=== PATIENT | female | born 1950 | race Caucasian/White ===

== ENCOUNTER 2024-12-31 12:33 | Outpatient (AMB) | payer MEDICARE, MEDICAID, SELFPAY ==
--- NOTE | 2024-12-31 12:35 | A.OFFVIS_ITS ---
Intake Visit Reasons: 2 month fu Allergies No Known Allergies Allergy (Verified 12/18/24 16:58) HPI Comments Details: 74 yr old woman with chr. migraine s/p Botox inj for Chr. Migraine on 10/30/24. She has had an excellent response to the Botox. Occasional neck pain continues, but is also improved with botox. Sleeping okay for the most part. Chronic low back pain followed at [facility], getting epidural inj about every 4 months. Lives near daughter in [facility]. Walking > 2 miles a day. Has had a good response to Botox in the past. She is being treated for chronic migraines with more than 15-20 days of migraine in a month. She has responded well to Botox injections into the scalp and neck muscles. Cannot take NSAIDS for kidney issues. 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 Change in appetitedenies.? Fatiguedenies.? Feverdenies.? Weight gainadmits.? Weight lossdenies. ???Sleep:? Difficulty getting to sleepdenies.? Difficulty maintaining sleepdenies?.? Daytime sleepinessdenies. ???Respiratory:? Shortness of breathdenies.? Chest paindenies. ???Cardiovascular:? Chest pain at restdenies.? Chest pain with exertiondenies.? Dizzinessdenies.? Fluid accumulation in the legsdenies.? Irregular heartbeatdenies.? Palpitations denies. ???Gastrointestinal:? Constipationdenies.? Diarrheadenies.? Difficulty swallowingdenies.? Heartburn denies.? Nauseadenies. ???Genitourinary:? Frequent urinationdenies.? Urgencydenies.? Incontinencedenies. ???Musculoskeletal:? Neck paindenies.? Back paindenies.? Joint stiffnessdenies.? Sciaticadenies. ???Neurologic:? Difficulty swallowingdenies.? Balance difficultydenies.? Coordinationnormal.? Difficulty speakingdenies.? Dizzinessdenies.? Faintingdenies.? Gait abnormality denies.? Headachethat is chronic.? Loss of strengthdenies.? Loss of use of ext remitydenies.? Low back paindenies.? Memory lossdenies.? Seizuresdenies.? Tics denies.? Tingling/Numbnessdenies.? Transient loss of visiondenies.? Tremordenies . ???Psychiatric:? Anxietyadmits.? Auditory/visual hallucinationsdenies.? Delusionsdenies.? Depressed moodadmits.? Stressorsdenies.? Suicidal thoughtsdenies. Physical Exam Neuro Other: Neurological: Abnormal neurological findings:??none.?Mental Status:??alert and oriented X 3,?Normal attention, orientation, memory and affect.?Cranial Nerves:??Pupils are equal, round and reactive to light. Fundoscopy shows normal disc bilaterally. External occular muscles are intact. Visual patterson are full, no ptosis. Face is symmetrical, no facial weakness or droop. Facial sensations are normal. Tongue protrudes in midline. Palate elevates symmetrically. Shoulder shrugging is normal..?Motor Examination:??Normal muscle tone, bulk and strength,?No atrophy or fasciculations,?No drift of the extended upper extremities,?Deep tendon reflexes are 2+?,?Plantars are flexor?.?Straight Leg Raising:??90 degrees.?Sensory Exam:??Normal light touch, temperature, pinprick, vibration and joint-position sensations?,?Rhomberg sign is absent.?Coordination:??no ataxia,?no titubation,?zvamst-vp-zcje, xfov-rqgu-hzja test and rapid alternating movements were normal.?Gait Exam:??Within normal limits.?Cerebellar Signs:??Jymjxy-tq-vekj and vruw-ve-ulju is normal,?no dysdiadochokinesia?.?Extrapyramidal System:??No tremor, rigidity with normal facial expressions,?No bradykinesia, no bradyphrenia. Normal arm swing and posture. No propulsion or retropulsion.?Speech:??Normal,?no dysphasia or dysarthria..? General Examination: GENERAL APPEARANCE:??normal,?in no acute distress.?HEART:??S1, S2 normal,?no murmurs.?LUNGS:??clear anteriorly and posteriorly.?MUSCULOSKELETAL:??normal.?EXTREMITIES:??no edema.?PSYCH:??alert, oriented,?cognitive function intact,?cooperative with exam.? Mini Mental Status Exam: Level of Consciousness:??Alert.?Orientation:??Knows correct year, month, date, day and season,?Knows correct city, county and state. Knows correct location and floor.?Registration:??Able to register 3 objects.?Attention:??Serial 7's performed accurately.?Recall:??Able to recall 3 out of 3 object s.?Language:??Normal spontaneous speech, fluency, repetition,naming, comprehension, reading and writing.?Total Score:??30/30.? 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 Will f/u with VR and will see me PRN when she needs Botox Coding Level of Care Code Est Pt Level 4 (34601) Diagnoses Chronic tension type headache G44.229 Low back pain due to displacement of intervertebral disc M51.26 Migraines G43.909
--- OUTSIDE RECORDS SUMMARY | 2024-12-31 13:42 | XMS_ITS | Encounter Summary ---
Author Organization [facility] Address [address] [place] [address] Phone Care Team Providers Care Trans Router Name Role Phone Arturo Iverson MD Primary Care Provider [phone] Reason for Visit * Reason Comments Med Refill Encounter Details Date Type Department Care Team (Late Contact Info) Description 06/29/2022 Refill [facility] [address] [facility] [address] [place] [phone] Darshan Tyson MD Social History Tobacco Use Types Packs/Day Years Used Date Smoking Tobacco: Former Alcohol Use Standard Drinks/Week Comments No 0 (1 standard drink = 0.6 oz pur e alcohol) Comments Unknown Sex and Gender Information Value Date Recorded Sex Assigned at Not on file Legal Sex Female 4:35 PM EST Gender Identity Not on file Sexual Orientation Not on file documented as of this encounter Plan of Treatment Upcoming Encounters Date Type Department Care Team (Late Contact Info) Description 07/11/2025 11:00 AM EST Office Visit [facility] [address] [place] [phone] Ty Lyon MD [address] [place] [address] [facility] [place] [phone] documented as of this encounter Visit Diagnoses Not on filedocumented in this encounter Care Teams Trans Router Relationship Specialty Start Date End Date Arturo Iverson MD [address] [place] [address], [address] [place], [place] [id number] PCP - General 04/23/19 documented as of this encounter
== END 2024-12-31 12:58 | disposition home or self-care (01) ==
LOC: HO.HSM 12:34
PROVIDERS: PCP Pediatrics; Referring Provider Pediatrics; Visit Provider Psychiatry & Neurology Neurology
DX: G44.229 Chronic tension-type headache, not intractable (principal); M51.26 Other intervertebral disc displacement, lumbar region; G43.909 Migraine, unspecified, not intractable, without status migrainosus
CPT/HCPCS: 99214

== ENCOUNTER → 2024-12-31 12:33 | Outpatient (BNVA) | payer MEDICARE, MEDICAID, SELFPAY | PROVIDERS: PCP Pediatrics; Referring Provider Pediatrics; Visit Provider Psychiatry & Neurology Neurology | DX: G44.229 Chronic tension-type headache, not intractable (principal); G43.909 Migraine, unspecified, not intractable, without status migrainosus; M51.26 Other intervertebral disc displacement, lumbar region | CPT/HCPCS: 99212 ==

== ENCOUNTER 2025-03-18 12:44 | Outpatient (AMB) | payer MEDICARE, MEDICAID, SELFPAY ==
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
[2025-03-18 13:05] VITALS: BP 114/68; PULSE 79; RESP 16; O2SAT 97; BMI 20.5
--- OUTSIDE RECORDS SUMMARY | 2025-03-18 13:50 | XMS_ITS | Encounter Summary ---
Author Organization [facility] Address [address] [facility] [address] [place] [address] Phone Care Team Providers Care Controls Operator Molded Goods Name Role Phone Arturo Iverson MD Unavailable [phone] Arturo Iverson MD Primary Care Provider [phone] Reason for Referral * Physical Therapy (Routine) - Closed Specialty Diagnoses / Procedures Referred By Rohit alexis Referred To Contact Physical Therapy Diagnoses Encounter for rehabilitation Mark Anthony Rondon MD Phone: tel: fax: [email or web address] [facility] [address] [place] [address] Phone: tel: Referral ID Status Reason Start Date Expiration Date Visits Re quested Visits Authorized [id number] Closed 01/25/2023 01/25/2024 99 99 Encounter Details Date Type Department Care Team (Latest Contact Info) Description 01/25/2023 Transcribe Orders [facility] [address] [place] [address] Mark Anthony Rondon MD [address] [place] [phone] [email or web address] Encounter for rehabilitation (Primary Dx) Social History Tobacco Use Types Packs/Day Years Used Date Smoking Tobacco: Some Days Cigarettes 0.3 60.7 Started: 1964 Smokeless Tobacco: Never Comments: LIGHT SMOKER wear ing patch-forgets often. The patch helps. Alcohol Use Standard Drinks/Week Comments Yes 7 (1 standard drink = 0.6 oz pur e alcohol) Education Answer Date Recorded Are you interested in more education? Not on dakota e 10/14/2022 Are you concerned about learning? Not on file 10/14/2022 No 10/14/2022 No 10/14/2022 Digital Access Answer Date Recorded No 11/14/2022 No 11/14/2022 Reliable internet access at home? Not on file 11/14/2022 Device with a working camera? Not on file Comments No Sex and Gender Information Value Date Recorded Sex Assigned at Female 06/26/2017 9:38 AM EST Legal Sex Female 10:00 PM EDT Gender Identity Female 07/16/2017 1:36 PM EST Sexual Orientation Straight 09/25/2017 6: 02 PM EDT documented as of this encounter Plan of Treatment Upcoming Encounters Date Type Department Care Team (Late st Contact Info) Description 06/02/2025 1:00 PM EST Office Visit [facility] Medicine [address] [place] [address] [place] [address] Arturo Iverson MD [address] [place] [address], [address] [place] [address] 07/04/2025 1:45 PM EST Office Visit [facility] [address] [place] [address] Unknown, Unknown, Nola Hughes, ADALI [address] [place] [address] 07/10/2025 2:15 PM EST Office Visit [facility] [address] [place] [address] Angela Salcedo MD [address] [place] [address] Orthopedics & Sports Medicine, [facility] [place] [address] 12/08/2025 1:00 PM EDT Office Visit [facility] [address] 3rd Floor, [address] [place] [address] Enrique Garcia DO [address] [facility] [address] [place] [phone] [email or web address] Scheduled Referrals Name Type Priority Associated Diagnoses Orde r Schedule Ambulatory referral to [facility] Physical Therapy Outpatient Referral Routine Encounter for rehabilitation Ordered: 01/25/2023 documented as of this encounter Visit Diagnoses Diagnosis Encounter for rehabilitation- Primary documented in this encounter Additional Health Concerns Assessment Noted Time PHQ-2 Depression Total Score: 0 05/26/20 22 1:31 PM EST documented as of this encounter Care Teams Controls Operator Molded Goods Relationship Specialty Start Date End Date Arturo Iverson MD [address] [facility], [address] [place] [address] PCP - General Internal Medicine 12/18/20 Arturo Iverson MD [address] [place] [address], [address] [place] [address] Insurance Assigned Provider 09/23/23 documented as of this encounter Additional Source Comments The information contained in this document represents components of the legal health record. It is not the complete legal health record.[facility]
--- OUTSIDE RECORDS SUMMARY | 2025-03-18 13:50 | XMS_ITS | Encounter Summary ---
Author Organization [facility] Address [address] [place] [address] Phone Care Team Providers Care Right Of Way Manager Name Role Phone Arturo Iverson MD Unavailable [phone] Arturo Iverson MD Primary Care Provider [phone] Encounter Details Date Type Department Care Team (Late st Contact Info) Description 08/02/2022 Procedure [facility] [place] [address] Social History Tobacco Use Types Packs/Day Years Used Date Smoking Tobacco: Some Days Cigarettes 0.3 60.7 Started: 1964 Smokeless Tobacco: Never Comments: LIGHT SMOKER wear ing patch-forgets often. The patch helps. Alcohol Use Standard Drinks/Week Comments Yes 7 (1 standard drink = 0.6 oz pur e alcohol) Comments No Sex and Gender Information Value [...] Description 06/02/2025 1:00 PM EST Office Visit [facility] [address] [place] [address] Arturo Iverson MD [address] [facility], [address] [place] [address] 07/04/2025 1:45 PM EST Office Visit [facility] [address] [place] [address] Unknown, Unknown, Nola [place], ADALI [address] [place] [address] 07/10/2025 2:15 PM EST Office Visit [facility] [address] [place] [address] Angela Salcedo MD [address] [place] [address] Orthopedics & Sports Medicine, [facility] [place] [address] 12/08/2025 1:00 PM EDT Office Visit [facility] [address] [place] [address] 3rd Floor, [address] [place] [address] Enrique Garcia DO [address] [facility] [address] [place] [id number] [email or web address] documented as of this encounter Visit Diagnoses Not on filedocumented in this encounter Additional Health Concerns Assessment Noted Time PHQ-2 Depression Total Score: 0 05/26/20 22 1:31 PM EST documented as of this encounter Care Teams Right Of Way Manager Relationship Specialty Start Date End Date Arturo Iverson MD [address] [place] [address], [address] [place] [address] PCP - General Internal Medicine 12/18/20 Arturo Iverson MD [address] [place] [address], [address] [place] [address] [email or web address] Insurance Assigned Provider 09/23/23 documented as of this encounter Additional Source Comments The information contained in this document represents components of the legal health record. It is not the complete legal health record.[facility]
--- OUTSIDE RECORDS SUMMARY | 2025-03-18 13:50 | XMS_ITS | Encounter Summary ---
Author Organization [facility] Address [address] [place] [address] Phone Care Team Providers Care Cranberry Sorter Name Role Phone Arturo Iverson MD Primary Care Provider [phone] Arturo Iverson MD Unavailable [phone] Arturo Iverson MD Primary Care Provider [phone] Encounter Details Date Type Department Care Team (Late st Contact Info) Description 01/11/2018 Ancillary Orders [facility] Medicine [address] [place] [address] Arturo Iverson MD [address] [facility], [address] [place] [address] [email or web address] Breast screening Social History Tobacco Use Types Packs/Day Years Used Date Smoking Tobacco: Every Day Cigarettes Smokeless Tobacco: Never Comments: LIGHT SMOKER wear ing patch Alcohol Use Standard Drinks/Week Comments Yes 7 [...] Description 06/02/2025 1:00 PM EST Office Visit [address] [place] [address] Arturo Iverson MD [address] [place] [address], [address] [place] [address] 07/04/2025 1:45 PM EST Office Visit [facility] [address] [place] [address] Unknown, Unknown, Nola Hughes, ADALI [address] [place] [address] 07/10/2025 2:15 PM EST Office Visit [facility] Orthopedics & Sports Medicine [address] [place] [address] Angela Salcedo MD [address] [place] [address] Orthopedics & Sports Medicine, [facility] [place] [address] 12/08/2025 1:00 PM EDT Office Visit [facility] [address] [place] [address] 3rd Floor, [address] [place] [address] Enrique Garcia DO [address] [place] [address] [place] [address] documented as of this encounter Results * BI MAMMOGRAM SCREENING WITH TOMOSYNTHESIS WITH CAD (BILATERAL) (01/29/2018 11:00 AM EDT) Anatomical Region Laterality Modality Breast Left, Breast Right, Breast Bilateral Bila teral Mammography 01/29/2018 12:3 4 PM EDT Impressions 01/29/2018 12:41 PM EDT No mammographic signs of malignancy. Annual screening is recommended. BI-RADS CATEGORY: 2 - Benign finding. DENSITY: There are scattered fibroglandular densities. POS - CDHMAMA Narrative 01/29/2018 12:41 PM EDT Bilateral mammography is performed in conjunction with computed aided detection. 3-D tomography along with 2-D C view imaging was also performed. Comparison made to previous dated as far back as 12/31/2012 and as recent as 06/23/2016. No suspicious masses, areas of architectural distortion or suspicious microcalcifications. A well-circumscribed 1 cm mass in the posterior outer right breast is stable. Procedure Note Mikie Cochran MD - 01/29/2018 Bilateral mammography is performed in conjunction with computed aideddetection. 3-D tomography along with 2-D C view imaging was alsoperformed. Comparison made to previous dated as far back as 12/31/2012 andas recent as 06/23/2016. No suspicious masses, areas of architectural distortion or suspiciousmicrocalcifications. A well-circumscribed 1 cm mass in the posteriorouter right breast is stable. IMPRESSION: No mammographic signs of malignancy. Annual screening is recommended. BI-RADS CATEGORY: 2 - Benign finding. DENSITY: There are scattered fibroglandular densities. POS - CDHMAMA Arturo Iverson MD IMG MG EXAMS Final Result documented in this encounter Visit Diagnoses Diagnosis Breast screening Breast screening, unspecified Breast screening Breast screening, unspecified documented in this encounter Additional Health Concerns Infection Onset Date Last Indicated Resolved Time CoV-Risk 08/27/2021 09/01/2021 09/12/2021 1:21 AM EDT documented as of this encounter Care Teams Cranberry Sorter Relationship Specialty Start Date End Date Arturo Iverson MD 22 [facility], [address] [place] [address] PCP - General 04/14/17 12/17/20 Arturo Iverson MD [address] [place] [address], [address] [place] [address] [email or web address] PCP - General Internal Medicine 12/18/20 Arturo Iverson MD [address] [place] [address], [address] [place] [address] [email or web address] Insurance Assigned Provider 09/23/23 documented as of this encounter Additional Source Comments The information contained in this document represents components of the legal health record. It is not the complete legal health record.[facility]
--- OUTSIDE RECORDS SUMMARY | 2025-03-18 13:50 | XMS_ITS | Encounter Summary ---
Author Organization [facility] Address [address] [facility] [address] [place] [address] Phone Care Team Providers Care Mechanical Maintenance Worker Name Role Phone Arturo Iverson MD Primary Care Provider [phone] Arturo Iverson MD Unavailable [phone] Artruo Iverson MD Primary Care Provider [phone] Reason for Referral * Physical Therapy (Routine) - Closed Specialty Diagnoses / Procedures Referred By Rohit alexis Referred To Contact Physical Therapy Diagnoses Encounter for rehabilitation Mark Anthony Rondon MD Phone: tel: fax: [email or web address] [address] [place] [address] Phone: tel: Referral ID Status Reason Start Date Expiration Date Visits Re quested Visits Authorized [id number] Closed 11/05/2020 06/18/2021 88 88 Encounter Details Date Type Department Care Team (Latest Contact Info) Description 11/05/2020 Transcribe Orders [facility] [address] [place] [address] Mark Anthony Rondon MD [address] [place] [address] [email or web address] ([place]) Encounter for rehabilitation (Primary Dx) Social History Tobacco Use Types Packs/Day Years Used Date Smoking Tobacco: Every Day Cigarettes 0.3 60.7 Started: 1964 Smokeless Tobacco: Never Comments: LIGHT SMOKER wear ing patch-forgets often. Alcohol Use Standard Drinks/Week Comments Yes 7 [...] Description 06/02/2025 1:00 PM EST Office Visit [facility] Family Medicine [address] [place] [address] [place] [address] Arturo Iverson MD [address] [place] [address], [address] [place] [address] [email or web address] 07/04/2025 1:45 PM EST Office Visit [facility] [address] [place] [address] Unknown, Unknown, Nola Hughes, ADALI [address] [place] [address] 07/10/2025 2:15 PM EST Office Visit [facility] Orthopedics & Sports Medicine [address] [place] [address] [phone] Angela Salcedo MD [address] [place] [address] [facility] [place], [place] [phone] 12/08/2025 1:00 PM EDT Office Visit [facility] [address] [place] [address] 3rd Floor, [address] [place] [address] Enrique Garcia DO [address] [facility] [address] [place] [address] [email or web address] documented as of this encounter Procedures Procedure Name Priority Date/Time Associated Diagnosis Comments AMB REFERRAL TO [facility] PHYSICAL THERAPY Routine 12/08/2020 9:14 AM EDT Encounter for rehabilitation documented in this encounter Results * Ambulatory referral to [facility] Physical Therapy (12/08/2020 9:14 AM EDT) Other us Mark Anthony Rondon MD AMB [facility] REFERRALS Final Result documented in this encounter Visit Diagnoses Diagnosis Encounter for rehabilitation- Primary documented in this encounter Additional Health Concerns Infection Onset Date Last Indicated Resolved Time CoV-Risk 08/27/2021 09/01/2021 09/12/2021 1:21 AM EDT Assessment Noted Time PHQ-2 Depression Total Score: 0 02/06/20 20 3:42 PM EDT documented as of this encounter Care Teams Mechanical Maintenance Worker Relationship Specialty Start Date End Date Arturo Iverson MD [address] [place] [address], [address] [place] [address] [email or web address] PCP - General 04/14/17 12/17/20 Arturo Iverson MD [address] [place] [address], [address] [place] [address] PCP - General Internal Medicine 12/18/20 Arturo Iverson MD [address] [place] [address], [address] [place] [address] [email or web address] Insurance Assigned Provider 09/23/23 documented as of this encounter Additional Source Comments The information contained in this document represents components of the legal health record. It is not the complete legal health record.[facility]
--- OUTSIDE RECORDS SUMMARY | 2025-03-18 13:50 | XMS_ITS | Encounter Summary ---
Author Organization [facility] Address [address] [place] [address] Phone Care Team Providers Care Laborer Cheesemaking Name Role Phone Arturo Iverson MD Primary Care Provider [phone] Arturo Iverson MD Unavailable [phone] Arturo Iverson MD Primary Care Provider [phone] Encounter Details Date Type Department Care Team (Late st Contact Info) Description 12/07/2020 Procedure Pass [address] [place] [address] Social History Tobacco Use Types Packs/Day Years [...] PM EDT documented as of this encounter Last Filed Vital Signs Vital Sign Reading Time Taken Comments Blood Pressure - - Pulse - - Temperature - - Respiratory Rate - - Oxygen Saturation - - Inhaled Oxygen Concentration - - Weight 63.5 kg (140 lb) 12/10/2020 6:14 PM EDT Height 160 cm (5' 3 ) 12/10/2020 6:14 PM EDT STEVEN F Body Mass Index 24.8 12/10/2020 6:14 PM EDT documented in this encounter Plan of Treatment Upcoming Encounters Date Type Department Care Team (Late st Contact Info) Description 06/02/2025 1:00 PM EST Office Visit [facility] Medicine [address] [place] [address] [place] [address] Arturo Iverson MD [address] [place] [address], [address] [place] [address] 07/04/2025 1:45 PM EST Office Visit [facility] Gastroenterology Clinic [address] [place] [address] Unknown, Unknown, Nola Hughes, ADALI [address] [place] [address] 07/10/2025 2:15 PM EST Office Visit [facility] Orthopedics & Sports Medicine [address] [place] [address] Angela Salcedo MD [address] [place] [address] Orthopedics & Sports Medicine, [facility] [place] [address] 12/08/2025 1:00 PM EDT Office Visit [facility] [address] [place] [address] Dr 3rd Floor, [address] [place] [address] Enrique Garcia DO [address] [place] [address] [address] [place] [address] documented as of this encounter Visit Diagnoses Not on filedocumented in this encounter Additional Health Concerns Infection Onset Date Last Indicated Resolved Time CoV-Risk 08/27/2021 09/01/2021 09/12/2021 1:21 AM EDT Assessment Noted Time PHQ-2 Depression Total Score: 0 02/06/20 3:42 PM EDT documented as of this encounter Care Teams Laborer Cheesemaking Relationship Specialty Start Date End Date Arturo Iverson MD [address] [place] [address], [address] [place] [address] PCP - General 04/14/17 12/17/20 Arturo Iverson MD [address] [place] [address], [address] [place] [address] PCP - General Internal Medicine 12/18/20 Arturo Iverson MD [address] [place] [address], [address] [place] [address] Insurance Assigned Provider 09/23/23 documented as of this encounter Additional Source Comments The information contained in this document represents components of the legal health record. It is not the complete legal health record.[facility]
--- OUTSIDE RECORDS SUMMARY | 2025-03-18 13:50 | XMS_ITS | Encounter Summary ---
Author Organization [facility] Address [address] [place] [address] Phone Care Team Providers Care Wrapper Cashier Name Role Phone Arturo Iverson MD Primary Care Provider [phone] Arturo Iverson MD Unavailable [phone] Arturo Iverson MD Primary Care Provider Reason for Referral * MRI/CAT Scan - Closed Specialty Diagnoses / Procedures Referred By Rohit alexis Referred To Contact Radiology Diagnoses Other intervertebral disc degeneration, lumbar region Spondylolisthesis of lumbar region Radiculopathy, lumbar region Procedures MRI Lumbar Spine Marcelo Bah PA [address] [place] [address] [place] [address] Phone: tel: fax: [email or web address] Referral ID Status Reason Start Date Expiration Date Visits Re quested Visits Authorized [id number] Closed 12/07/2020 12/07/2021 1 1 Encounter Details Date Type Department Care Team (Latest Contact Info) Description 12/07/2020 Transcribe Orders [facility] Department [address] [place] [address] Marcelo Bah PA [address] [place] [address] .MTPV Other intervertebral disc degeneration, lumbar region (Primary Dx); Spondylolisthesis of lumbar region; Radiculopathy, lumbar region Social History Tobacco Use Types Packs/Day Years [...] Description 06/02/2025 1:00 PM EST Office Visit [facility] Family Medicine [address] [place] [address] Arturo Iverson MD [address] [place] [address], [address] [place] [address] [email or web address] 07/04/2025 1:45 PM EST Office Visit [facility] Gastroenterology Clinic [address] [place] [address] Unknown, Unknown, Nola Hughes, DATA RECOVERY PLANNER [address] [place] [address] 07/10/2025 2:15 PM EST Office Visit [facility] Orthopedics & Sports Medicine [address] [place] [address] [phone] Angela Salcedo MD [address] [place] [address] Orthopedics & Sports Medicine, [place] [address] 12/08/2025 1:00 PM EDT Office Visit [facility] [address] [facility] 3rd Floor, [address] [place] [address] Enrique Garcia DO [address] [facility] [address] [place] [address] documented as of this encounter Results * MRI LUMBAR SPINE (BONE) WITHOUT CONTRAST (12/19/2020 11:21 AM EDT) Anatomical Region Laterality Modality L-spine Magnetic Resonan ce 12/19/2020 4:10 PM EDT Impressions 12/20/2020 12:14 PM EDT Similar appearance of multilevel degenerative changes of the lumbar spine, more pronounced at L4-L5 where there is severe spinal canal stenosis and moderate right neural foraminal stenosis. Narrative 12/20/2020 12:14 PM EDT TECHNIQUE: MRI LUMBAR SPINE (BONE) WITHOUT CONTRAST COMPARISON: MRI LUMBAR SPINE (NEURO) WITHOUT CONTRAST FINDINGS: Transitional lumbosacral anatomy, sacralization of L5 with a right-sided pseudoarthrosis. ALIGNMENT: Grade 1 anterolisthesis at L4-L5, unchanged. MARROW: No compression fracture or marrow replacing lesion. CONUS: Normal appearance . PARASPINAL SOFT TISSUES: Numerous small cysts again seen in the bilateral kidneys, unchanged. FINDINGS BY LEVEL (unless otherwise specified, findings are unchanged): L1-2: Concentric disc bulge. Mild spinal canal stenosis. No significant neural foraminal stenosis. L2-3: Bilateral facet arthropathy. Concentric disc bulge. Mild spinal canal stenosis. Mild left neural foraminal stenosis. L3-4: Bilateral facet arthropathy with ligamentum flavum thickening. Concentric disc bulge. Moderate spinal canal stenosis. Mild bilateral neural foraminal stenosis. L4-5: Bilateral facet arthropathy with ligamentum flavum thickening. Concentric disc bulge. Severe spinal canal stenosis. Moderate right and mild left neural foraminal stenosis. L5-S1: No significant posterior disc abnormality. No spinal canal or neural foraminal stenosis. Procedure Note Declan Gutierrez MD - 12/20/2020 TECHNIQUE: MRI LUMBAR SPINE (BONE) WITHOUT CONTRAST COMPARISON: MRI LUMBAR SPINE (NEURO) WITHOUT CONTRAST FINDINGS: Transitional lumbosacral anatomy, sacralization of L5 with a right-sidedpseudoarthrosis. ALIGNMENT: Grade 1 anterolisthesis at L4-L5, unchanged. MARROW: No compression fracture or marrow replacing lesion. CONUS: Normal appearance . PARASPINAL SOFT TISSUES: Numerous small cysts again seen in the bilateralkidneys, unchanged. FINDINGS BY LEVEL (unless otherwise specified, findings are unchanged): L1-2: Concentric disc bulge. Mild spinal canal stenosis. No significantneural foraminal stenosis. L2-3: Bilateral facet arthropathy. Concentric disc bulge. Mild spinalcanal stenosis. Mild left neural foraminal stenosis. L3-4: Bilateral facet arthropathy with ligamentum flavum thickening.Concentric disc bulge. Moderate spinal canal stenosis. Mild bilateralneural foraminal stenosis. L4-5: Bilateral facet arthropathy with ligamentum flavum thickening.Concentric disc bulge. Severe spinal canal stenosis. Moderate right andmild left neural foraminal stenosis. L5-S1: No significant posterior disc abnormality. No spinal canal orneural foraminal stenosis. IMPRESSION: Similar appearance of multilevel degenerative changes of the lumbar spine,more pronounced at L4-L5 where there is severe spinal canal stenosis andmoderate right neural foraminal stenosis. Marcelo KAY IMG MR XSPECIALTY Final Res ult documented in this encounter Visit Diagnoses Diagnosis Other intervertebral disc degeneration, lumbar region- Primary Spondylolisthesis of lumbar region Radiculopathy, lumbar region Thoracic or lumbosacral neuritis or radiculitis, unspecified Other intervertebral disc degeneration, lumbar region Spondylolisthesis of lumbar region Radiculopathy, lumbar region Thoracic or lumbosacral neuritis or radiculitis, unspecified documented in this encounter Additional Health Concerns Infection Onset Date Last Indicated Resolved Time CoV-Risk 08/27/2021 09/01/2021 09/12/2021 1:21 AM EDT Assessment Noted Time PHQ-2 Depression Total Score: 0 02/06/20 3:42 PM EDT documented as of this encounter Care Teams Wrapper Cashier Relationship Specialty Start Date End Date Arturo Iverson MD [address] [facility], [address] [place] [address] [email or web address] PCP - General 04/14/17 12/17/20 Arturo Iverson MD [address] [facility], [address] [place] [address] [email or web address] PCP - General Internal Medicine 12/18/20 Arturo Iverson MD [address] [facility], [address] [place] [address] [email or web address] Insurance Assigned Provider 09/23/23 documented as of this encounter Additional Source Comments The information contained in this document represents components of the legal health record. It is not the complete legal health record.[facility]
--- OUTSIDE RECORDS SUMMARY | 2025-03-18 13:50 | XMS_ITS | Encounter Summary ---
Author Organization [facility] Address [address] [facility] [address] [place] [address] Phone Care Team Providers Care Insurance Policy Clerk Name Role Phone Arturo Iverson MD Unavailable [phone] Arturo Iverson MD Primary Care Provider [phone] Encounter Details Date Type Department Care Team (Late st Contact Info) Description 12/09/2022 Transcribe Orders [facility] [address] [place] [address] Darshan Tyson MD [address] [place] [address], [address] [place] [address] [email or web address] Social History Tobacco Use Types Packs/Day Years [...] Description 06/02/2025 1:00 PM EST Office Visit [facility] Family Medicine [address] [place] [address] [place] [address] Arturo Iverson MD [address] [facility], [address] [place] [address] 07/04/2025 1:45 PM EST Office Visit [facility] 10 [place] [address] Unknown, Unknown, Nola Hughes, RADIO DESPATCHER [address] [place] [address] 07/10/2025 2:15 PM EST Office Visit [facility] Orthopedics & Sports Medicine [address] [place] [address] Angela Salcedo MD [address] [place] [address] Orthopedics & Sports Medicine, [place] [address] 12/08/2025 1:00 PM EDT Office Visit [facility] [address], [address] [place] [address] Enrique Garcia DO [address] [facility] [address] [place] [address] documented as of this encounter Visit Diagnoses Not on filedocumented in this encounter Additional Health Concerns Assessment Noted Time PHQ-2 Depression Total Score: 0 05/26/20 22 1:31 PM EST documented as of this encounter Care Teams Insurance Policy Clerk Relationship Specialty Start Date End Date Arturo Iverson MD [address] [facility], [address] [place] [address] [email or web address] PCP - General Internal Medicine 12/18/20 Arturo Iverson MD [address] [facility], [address] [place] [address] Insurance Assigned Provider 09/23/23 documented as of this encounter Additional Source Comments The information contained in this document represents components of the legal health record. It is not the complete legal health record.[facility]
--- OUTSIDE RECORDS SUMMARY | 2025-03-18 13:51 | XMS_ITS | Encounter Summary ---
Author Organization [facility] Address [address] [place] [address] Phone Care Team Providers Care Medical Billing And Coding Instructor Name Role Phone Arturo Iverson MD Unavailable [phone] Arturo Iverson MD Primary Care Provider [phone] Encounter Details Date Type Department Care Team (Late st Contact Info) Description 08/09/2024 Ancillary Orders [facility], X-Ray - [address] [address] Mary Meyer PA 10 [place] [address] Small bowel obstruction (Primary Dx) Social History Tobacco Use Types Packs/Day Years Used Date Smoking Tobacco: Some Days Cigarettes 0.3 60.7 Started: 1964 Smokeless Tobacco: Never Comments: LIGHT SMOKER wear ing patch-forgets often. The patch helps. Alcohol Use Standard Drinks/Week Comments Not Currently 7 (1 standard drink = 0.6 oz [...] with a working camera? Not on file Intimate Partner Violence Answer Date R ecorded Are you denied basic needs s uch as food, clothing, or medical care? No 05/30/2024 In the past 12 months have y ou been in a relationship with a person who hurts, threatens, or tries to control you? No 05/30/2024 Are you denied basic needs s uch as food, clothing, or medical care? No 05/30/2024 In the past 12 months have y ou been in a relationship with a person who hurts, threatens, or tries to control you? No 05/30/2024 Comments No Sex and Gender Information Value [...] Description 06/02/2025 1:00 PM EST Office Visit [address] [place] [address] Arturo Iverson MD [address] [place] [address], [address] [place] [address] [email or web address] 07/04/2025 1:45 PM EST Office Visit [facility] [address] [place] [address] Unknown, Unknown, Nola Hughes, ADALI 10 [place] [address] 07/10/2025 2:15 PM EST Office Visit [facility] [address] [place] [phone] Angela Salcedo MD [address] [place] [address] Orthopedics & Sports Medicine, [place] [address] [email or web address] 12/08/2025 1:00 PM EDT Office Visit [facility] [address] [facility] 3rd Floor, [address] [place] [address] Jose Enrique Ceci, [address] [facility] [address] [place] [address] [email or web address] documented as of this encounter Results * XR Abdomen Series Supine with Decubitus/Erect and Single View Chest (08/09/2024 5:43 PM EST) Anatomical Region Laterality Modality Abdomen, Chest Computed Radiogr aphy 08/09/2024 5:49 PM EST Impressions 08/09/2024 5:52 PM EST 1. Nonobstructive bowel gas pattern. 2. Moderate to large amount stool within the colon. Narrative 08/09/2024 5:52 PM EST XR ABDOMEN SERIES SUPINE WITH DECUBITIS/ERECT AND SINGLE VIEW CHEST Referring clinician's provided indication for this examination in [facility]: Bowel obstruction suspected COMPARISON: CT abdomen and pelvis 03/14/2022 FINDINGS: CHEST:Lungs are clear. No consolidation or definite pleural effusion on this AP radiograph. Cardiomegaly. ABDOMEN: No dilated loops of bowel are present to suggest an obstruction. There is a moderate to large amount retained feces within the colon. Degenerative changes of the hip joints. No acute osseous abnormality. Procedure Note Yanira Maher MD - 08/09/2024 XR ABDOMEN SERIES SUPINE WITH DECUBITIS/ERECT AND SINGLE VIEW CHEST Referring clinician's provided indication for this examination in [facility]:Bowel obstruction suspected COMPARISON: CT abdomen and pelvis 03/14/2022 FINDINGS: CHEST:Lungs are clear. No consolidation or definite pleural effusion onthis AP radiograph. Cardiomegaly. ABDOMEN: No dilated loops of bowel are present to suggest an obstruction.There is a moderate to large amount retained feces within the colon. Degenerative changes of the hip joints. No acute osseous abnormality. IMPRESSION: 1. Nonobstructive bowel gas pattern. 2. Moderate to large amount stool within the colon. us Mary KAY IMG XR ABDOMEN Final Resul t documented in this encounter Visit Diagnoses Diagnosis Small bowel obstruction Unspecified intestinal obstruction Small bowel obstruction- Primary Unspecified intestinal obstruction documented in this encounter Additional Health Concerns Assessment Noted Time PHQ-2 Depression Total Score: 0 05/30/20 1:04 PM EST documented as of this encounter Care Teams Medical Billing And Coding Instructor Relationship Specialty Start Date End Date Arturo Iverson MD [address] [facility], [address] [place] [address] PCP - General Internal Medicine 12/18/20 Arturo Iverson MD [address] [facility], [address] [place] [address] Insurance Assigned Provider 09/23/23 documented as of this encounter Additional Source Comments The information contained in this document represents components of the legal health record. It is not the complete legal health record.[facility]
--- OUTSIDE RECORDS SUMMARY | 2025-03-18 13:51 | XMS_ITS | Encounter Summary ---
Author Organization [facility] Address [address] [place] [address] Phone Care Team Providers Care Financial Administration Officer Name Role Phone Arturo Iverson MD Primary Care Provider [phone] Reason for Visit * Reason Comments Med Refill Encounter Details Date Type Department Care Team (Late Contact Info) Description 06/29/2022 Refill [facility] [address] [facility] 3 [place] [phone] Darshan Tyson MD Social History Tobacco Use [...] Visit [facility] [address] [place] [phone] Ty Lyon MD [address] [place] [address] [facility] [place] [phone] documented as of this encounter Visit Diagnoses Not on filedocumented in this encounter Care Teams Financial Administration Officer Relationship Specialty Start Date End Date Arturo Iverson MD [address] [place] [address], [address] [place], [place] [id number] PCP - General 04/23/19 documented as of this encounter
--- OUTSIDE RECORDS SUMMARY | 2025-03-18 13:51 | XMS_ITS | Encounter Summary ---
Author Organization [facility] Address [address] [place] [address] Phone Care Team Providers Care Hog Sawyer Name Role Phone Arturo Iverson MD Primary Care Provider [phone] Reason for Visit * Reason Comments Med Refill Encounter Details Date Type Department Care Team (Late Contact Info) Description 04/17/2022 Refill [facility] 51 [address] [place] [phone] Darshan Tyson MD Social History Tobacco Use [...] Visit [facility] [address] [place] [phone] Ty Lyon MD [address] [place] [address] [facility] [place] [phone] documented as of this encounter Visit Diagnoses Not on filedocumented in this encounter Care Teams Hog Sawyer Relationship Specialty Start Date End Date Arturo Iverson MD [address] [place] [address], [address] [place], [place] [id number] PCP - General 04/23/19 documented as of this encounter
--- OUTSIDE RECORDS SUMMARY | 2025-03-18 13:51 | XMS_ITS | Encounter Summary ---
Author Organization [facility] Address [address] [place] [address] Phone Care Team Providers Care Arcade Games Mechanic Name Role Phone Arturo Iverson MD Unavailable [phone] Arturo Iverson MD Primary Care Provider [phone] Encounter Details Date Type Department Care Team (Latest Contact Info) Description 07/29/2024 Ancillary Orders [facility], X-Ray - [address] [place] [address] Mark Anthony Rondon MD 0 [place] [address] [email or web address] Trochanteric bursitis of left hip (Primary Dx); Primary osteoarthritis of both hips; Left hip pain Social History Tobacco Use Types Packs/Day Years [...] Description 06/02/2025 1:00 PM EST Office Visit [address] [place] [address] Arturo Iverson MD [address] [place] [address], [address] [place] [address] 07/04/2025 1:45 PM EST Office Visit [facility] 10 [place] [address] Unknown, Unknown, Nola Hughes NP 10 [place] [address] 07/10/2025 2:15 PM EST Office Visit [facility] [address] [place] [address] Angela Salcedo MD [address] [place] [address] [facility] [place] [address] 12/08/2025 1:00 PM EDT Office Visit [facility] 22 [facility] 3rd Floor, [address] [place] [address] Enrique Garcia DO [address] [facility] [address] [place] [address] [email or web address] documented as of this encounter Results * XR HIP 2 VW LEFT PLUS PELVIS (07/30/2024 12:51 PM EST) Anatomical Region Laterality Modality Hip, Pelvis Computed Radiogr aphy 07/31/2024 10:3 9 AM EST Impressions 07/31/2024 10:41 AM EST FINDINGS/IMPRESSION: There is no evidence of acute fracture, subluxation, or dislocation. There is moderate degenerative change of the hips bilaterally. The sacroiliac joints and symphysis pubis are congruent. There are no acute soft tissue abnormalities. Narrative 07/31/2024 10:41 AM EST XR HIP 2 VW LEFT PLUS PELVIS 07/30/2024 12:35 PM Referring clinician's provided indication for this examination in [facility]: Pain COMPARISON: Pelvis/left hip radiographs 04/23/2024 Procedure Note Bambi Queen MD - 07/31/2024 XR HIP 2 VW LEFT PLUS PELVIS 07/30/2024 12:35 PM Referring clinician's provided indication for this examination in [facility]:Pain COMPARISON: Pelvis/left hip radiographs 04/23/2024 IMPRESSION: FINDINGS/IMPRESSION: There is no evidence of acute fracture, subluxation, or dislocation. Thereis moderate degenerative change of the hips bilaterally. The sacroiliacjoints and symphysis pubis are congruent. There are no acute soft tissueabnormalities. Mark Anthony Rondon MD IMG XR PELVIS Final R esult documented in this encounter Visit Diagnoses Diagnosis Trochanteric bursitis of left hip- Primary Primary osteoarthritis of both hips Left hip pain Pain in joint, pelvic region and thigh Trochanteric bursitis of left hip Primary osteoarthritis of both hips Left hip pain Pain in joint, pelvic region and thigh documented in this encounter Additional Health Concerns Assessment Noted Time PHQ-2 Depression Total Score: 0 05/30/20 24 1:04 PM EST documented as of this encounter Care Teams Arcade Games Mechanic Relationship Specialty Start Date End Date Arturo Iverson MD [address] [facility], [address] [place] [address] PCP - General Internal Medicine 12/18/20 Arturo Iverson MD [address] [facility], [address] [place] [address] Insurance Assigned Provider 09/23/23 documented as of this encounter Additional Source Comments The information contained in this document represents components of the legal health record. It is not the complete legal health record.[facility]
--- OUTSIDE RECORDS SUMMARY | 2025-03-18 13:51 | XMS_ITS | Encounter Summary ---
Author Organization [facility] Address [address] [place] [address] Phone Care Team Providers Care Mason Liner Name Role Phone Arturo Iverson MD Unavailable [phone] Arturo Iverson MD Primary Care Provider [phone] Encounter Details Date Type Department Care Team (Late st Contact Info) Description 05/24/2024 Procedure Pass [facility], Ct Scan - [address] [address] Social History Tobacco Use Types Packs/Day Years [...] as food, clothing, or medical care? No 05/24/2024 In the past 12 months have y ou been in a relationship with a person who hurts, threatens, or tries to control you? No 05/24/2024 Are you denied basic needs s uch as food, clothing, or medical care? No 05/24/2024 In the past 12 months have y ou been in a relationship with a person who hurts, threatens, or tries to control you? No 05/24/2024 Comments No Sex and Gender Information Value Date Recorded Sex Assigned at Female 06/26/2017 9:38 AM EST Legal Sex Female 10:00 PM EDT Gender Identity Female 07/16/2017 1:36 PM EST Sexual Orientation Straight 09/25/2017 6: 02 PM EDT documented as of this encounter Functional Status * Calculated C-SSRS Risk Score (Lifetime/Recent) Answer Date of Assessment Author No Risk Indicated 05/24/2024 1:17 PM EST Sarah Sullivan, RUBEN * Hinds Suicide Severity Rating Scale (Screener/Recent Self-Report) Question Answer Date of Assessment Author 1. Wish to be (Past 1 Month) No 024 1:17 PM Sarah Mcgee, RN 2. Non-Specific Active Suici daniel Thoughts (Past 1 Month) No 05/24/2024 1:17 PM Sarah Mcgee, RN 6. Suicidal Behavior (Lifetime) No 4 1:17 PM Sarah Mcgee, RN documented as of this encounter Plan of Treatment Upcoming Encounters Date Type Department Care Team (Late st Contact Info) Description 06/02/2025 1:00 PM EST Office Visit [facility] [address] [place] [address] Arturo Iverson MD [address] [place] [address], [address] [place] [address] 07/04/2025 1:45 PM EST Office Visit [facility] [address] [place] [address] Unknown, Unknown, Nola Hughes, TOBACCO DIPPER 10 [place] [address] 07/10/2025 2:15 PM EST Office Visit [facility] Medicine 4 [place] [address] Angela Salcedo MD [address] [place] [address] Orthopedics & Sports Medicine, [facility] [place] [address] 12/08/2025 1:00 PM EDT Office Visit [facility] 22 [facility] 3rd Floor, [address] [place] [address] Enrique Garcia DO 22 [facility] [address] [place] [address] documented as of this encounter Visit Diagnoses Not on filedocumented in this encounter Additional Health Concerns Assessment Noted Time PHQ-2 Depression Total Score: 0 05/29/20 23 12:33 PM EST documented as of this encounter Care Teams Mason Liner Relationship Specialty Start Date End Date Arturo Iverson MD [address] [place] [address], [address] [place] [address] PCP - General Internal Medicine 12/18/20 Arturo Iverson MD [address] [place] [address], [address] [place] [address] Insurance Assigned Provider 09/23/23 documented as of this encounter Additional Source Comments The information contained in this document represents components of the legal health record. It is not the complete legal health record.[facility]
--- OUTSIDE RECORDS SUMMARY | 2025-03-18 13:51 | XMS_ITS | Encounter Summary ---
Author Organization [facility] Address [address] [place] [address] Phone Care Team Providers Care Top Lift Nailer Name Role Phone Arturo Iverson MD Primary Care Provider [phone] Reason for Visit * Reason Comments Med Refill Encounter Details Date Type Department Care Team (Late Contact Info) Description 06/14/2022 Refill [facility] 51 [facility] 3 [place] [phone] Darshan Tyson MD Social History Tobacco Use [...] Visit [facility] [address] [place] [phone] Ty Lyon MD [address] [place] [address] [facility] [[email or web address] [place] [phone] documented as of this encounter Visit Diagnoses Not on filedocumented in this encounter Care Teams Top Lift Nailer Relationship Specialty Start Date End Date Arturo Iverson MD [address] [place] [address], [address] [place], [place] [phone] PCP - General 04/23/19 documented as of this encounter
--- OUTSIDE RECORDS SUMMARY | 2025-03-18 13:51 | XMS_ITS | Encounter Summary ---
Author Organization [facility] Address [address] [place] [address] Phone Care Team Providers Care Underwear Welter Name Role Phone Arturo Iverson MD Primary Care Provider [phone] Arturo Iverson MD Unavailable [phone] Arturo Iverson MD Primary Care Provider Encounter Details Date Type Department Care Team (Late st Contact Info) Description 08/04/2020 Procedure Pass [facility], [address] [place] [address] Social History Tobacco Use Types Packs/Day Years [...] Description 06/02/2025 1:00 PM EST Office Visit [facility] [address] [place] [address] [place] [address] Arturo Iverson MD [address] [place] [address], [address] [place] [address] 07/04/2025 1:45 PM EST Office Visit [facility] 10 [place] [address] Unknown, Unknown, Nola Hughes, ADALI 10 [place] [address] 07/10/2025 2:15 PM EST Office Visit [facility] Medicine [address] [place] [address] Angela Salcedo MD [address] [place] [address] Orthopedics & Sports Medicine, [place] [address] 12/08/2025 1:00 PM EDT Office Visit [facility] [address] [place] [address] 3rd Floor, [address] [place] [address] Enrique Garcia DO [address] [place] [address] [place] [address] documented as of this encounter Visit Diagnoses Not on filedocumented in this encounter Additional Health Concerns Infection Onset Date Last Indicated Resolved Time CoV-Risk 08/27/2021 09/01/2021 09/12/2021 1:21 AM EDT Assessment Noted Time PHQ-2 Depression Total Score: 0 02/06/20 3:42 PM EDT documented as of this encounter Care Teams Underwear Welter Relationship Specialty Start Date End Date Arturo Iverson MD [address] [place] [address], [address] [place] [address] PCP - General 04/14/17 12/17/20 Arturo Iverson MD [address] [facility], [address] [place] [address] [email or web address] PCP - General Internal Medicine 12/18/20 Arturo Iverson MD 22 [facility], [address] [place] [address] [email or web address] Insurance Assigned Provider 09/23/23 documented as of this encounter Additional Source Comments The information contained in this document represents components of the legal health record. It is not the complete legal health record.[facility]
--- OUTSIDE RECORDS SUMMARY | 2025-03-18 13:51 | XMS_ITS | Encounter Summary ---
Author Organization [facility] Address [address] [place] [address] Phone Care Team Providers Care Special Librarian Name Role Phone Arturo Iverson MD Unavailable [phone] Arturo Iverson MD Primary Care Provider [phone] Encounter Details Date Type Department Care Team (Late st Contact Info) Description 07/29/2024 Ancillary Orders [facility], X-Ray - [address] [place] [address] Mark Anthony Rondon MD 2 [place] [address] [email or web address] Other spondylosis with radiculopathy, lumbar region (Primary Dx) Social History Tobacco Use Types [...] 06/02/2025 1:00 PM EST Office Visit [address] [place] [address] Arturo Iverson MD [address] [place] [address], [address] [place] [address] 07/04/2025 1:45 PM EST Office Visit [facility] 10 [place] [address] Unknown, Unknown, Nola Hughes, ADALI 10 [place] [address] 07/10/2025 2:15 PM EST Office Visit [facility] [address] [place] [address] Angela Salcedo MD [address] [place] [address] [facility] [place] [address] [email or web address] 12/08/2025 1:00 PM EDT Office Visit [facility] 22 [facility] 3rd Floor, [address] [place] [address] ShebabibEnrique, [address] [facility] [address] [place] [address] [email or web address] documented as of this encounter Results * XR LUMBOSACRAL SPINE 2-3 VIEWS (07/30/2024 12:51 PM EST) Anatomical Region Laterality Modality L-spine Computed Radiogr aphy 07/31/2024 10:4 1 AM EST Impressions 07/31/2024 10:45 AM EST No evidence of acute fracture or malalignment. Stable grade 1 anterolisthesis of L4 on L5. Mild degenerative change. Narrative 07/31/2024 10:45 AM EST XR LUMBOSACRAL SPINE 2-3 VIEWS 07/30/2024 12:35 PM Referring clinician's provided indication for this examination in [facility]: S/P Fall COMPARISON: Lumbosacral spine radiographs 10/04/2023 FINDINGS: There is no evidence of acute fracture or malalignment. There is mild chronic grade 1 anterolisthesis of L4 on L5 measuring 4 mm. There is minimal mid lumbar dextroscoliosis, similar to prior imaging. There is mild diffuse anterior degenerative endplate marginal osteophytosis. The disc space heights are grossly preserved. There is mild degenerative change of the lower lumbar facet joints. The sacroiliac joints are congruent. There is vascular calcification. Procedure Note Bambi Queen MD - 07/31/2024 XR LUMBOSACRAL SPINE 2-3 VIEWS 07/30/2024 12:35 PM Referring clinician's provided indication for this examination in [facility]:S/P Fall COMPARISON: Lumbosacral spine radiographs 10/04/2023 FINDINGS: There is no evidence of acute fracture or malalignment. There is mildchronic grade 1 anterolisthesis of L4 on L5 measuring 4 mm. There isminimal mid lumbar dextroscoliosis, similar to prior imaging. There ismild diffuse anterior degenerative endplate marginal osteophytosis. Thedisc space heights are grossly preserved. There is mild degenerativechange of the lower lumbar facet joints. The sacroiliac joints arecongruent. There is vascular calcification. IMPRESSION: No evidence of acute fracture or malalignment. Stable grade 1anterolisthesis of L4 on L5. Mild degenerative change. us Mark Anthony Rondon MD IMG XR SPINE Final R esult documented in this encounter Visit Diagnoses Diagnosis Other spondylosis with radiculopathy, lumbar region- Primary Other spondylosis with radiculopathy, lumbar region documented in this encounter Additional Health Concerns Assessment Noted Time PHQ-2 Depression Total Score: 0 05/30/20 24 1:04 PM EST documented as of this encounter Care Teams Special Librarian Relationship Specialty Start Date End Date Arturo Iverson MD 22 [facility], [address] [place] [address] [email or web address] PCP - General Internal Medicine 12/18/20 Arturo Iverson MD [address] [facility], [address] [place] [address] Insurance Assigned Provider 09/23/23 documented as of this encounter Additional Source Comments The information contained in this document represents components of the legal health record. It is not the complete legal health record.[facility]
--- OUTSIDE RECORDS SUMMARY | 2025-03-18 13:51 | XMS_ITS | Encounter Summary ---
Author Organization Located Within [facility] Address [address] [place] [address] Phone Care Team Providers Care Slat Pickler Name Role Phone Arturo Iverson MD Unavailable [phone] Arturo Iverson MD Primary Care Provider [phone] Encounter Details Date Type Department Care Team (Late st Contact Info) Description 07/18/2022 Ancillary Orders [facility], X-Ray - [address] [address] Mark Anthony Rondon MD [address] [place] [phone] [email or web address] Acute pain of left knee Social History Tobacco Use Types Packs/Day Years [...] Description 06/02/2025 1:00 PM EST Office Visit [facility] Medicine [address] [place] [address] [place] [address] Arturo Iverson MD 22 [facility], [address] [place] [address] 07/04/2025 1:45 PM EST Office Visit [facility] G[facility]enterology Clinic 10 [place] [address] Unknown, Unknown, Nola Hughes, ADALI 10 [place] [address] 07/10/2025 2:15 PM EST Office Visit [facility] Orthopedics & Sports Medicine [address] [place] [address] Angela Salcedo MD [address] [place] [address] Orthopedics & Sports Medicine, [facility] [place] [address] 12/08/2025 1:00 PM EDT Office Visit [facility] [address] [place] [address] 3rd Floor, [address] [place] [address] Enrique Garcia DO [address] [place] [address] [place] [address] documented as of this encounter Results * XR KNEE 4 OR MORE VIEWS (LEFT) (07/18/2022 1:11 PM EST) Anatomical Region Laterality Modality Knee Left Computed Radiogr aphy 07/18/2022 10:5 2 PM EST Impressions 07/18/2022 10:53 PM EST Mild left knee patellofemoral predominant osteoarthritis. Prepatellar soft tissue swelling, could reflect prepatellar bursitis. Narrative 07/18/2022 10:53 PM EST XR KNEE 4 OR MORE VIEWS (LEFT) COMPARISON: KNEES STAND AP 2016- FINDINGS: LEFT KNEE: Knee joint space narrowing with subchondral sclerosis and marginal osteophytes is mild in the patellofemoral compartment. Medial and lateral compartment joint spaces preserved. Small joint effusion. Mild prepatellar soft tissue swelling. No acute fracture or dislocation. RIGHT KNEE: Frontal radiograph only of the right knee show no acute displaced fracture or malalignment. Procedure Note Crys Coles MD - 07/18/2022 XR KNEE 4 OR MORE VIEWS (LEFT) COMPARISON: KNEES STAND AP 2016- FINDINGS: LEFT KNEE: Knee joint space narrowing with subchondral sclerosis and marginalosteophytes is mild in the patellofemoral compartment. Medial and lateralcompartment joint spaces preserved. Small joint effusion. Mild prepatellarsoft tissue swelling. No acute fracture or dislocation. RIGHT KNEE: Frontal radiograph only of the right knee show no acute displaced fractureor malalignment. IMPRESSION: Mild left knee patellofemoral predominant osteoarthritis. Prepatellar soft tissue swelling, could reflect prepatellar bursitis. Mark Anthony Rondon MD IMG XR LOWER EXTREMITY Final Result documented in this encounter Visit Diagnoses Diagnosis Acute pain of left knee Acute pain of left knee documented in this encounter Additional Health Concerns Assessment Noted Time PHQ-2 Depression Total Score: 0 05/26/20 22 1:31 PM EST documented as of this encounter Care Teams Slat Pickler Relationship Specialty Start Date End Date Arturo Iverson MD [address] [place] [address], [address] [place] [address] [email or web address] PCP - General Internal Medicine 12/18/20 Arturo Iverson MD [address] [place] [address], [address] [place] [address] [email or web address] Insurance Assigned Provider 09/23/23 documented as of this encounter Additional Source Comments The information contained in this document represents components of the legal health record. It is not the complete legal health record.[facility]
--- OUTSIDE RECORDS SUMMARY | 2025-03-18 13:51 | XMS_ITS | Encounter Summary ---
Author Organization [facility] Address [address] [place] [address] Phone Care Team Providers Care Programmer Or Analyst Name Role Phone Arturo Iverson MD Primary Care Provider [phone] Arturo Iverson MD Unavailable [phone] Arturo Iverson MD Primary Care Provider [phone] Encounter Details Date Type Department Care Team (Late st Contact Info) Description 07/13/2017 Procedure Pass [facility], Ct Scan - [address] [address] Social History Tobacco Use Types Packs/Day Years Used Date Smoking Tobacco: Every Day Cigarettes Smokeless Tobacco: Never Comments: LIGHT SMOKER Alcohol Use Standard Drinks/Week Comments Yes 7 [...] Description 06/02/2025 1:00 PM EST Office Visit [facility] Medicine [address] [place] [address] [place] [address] Arturo Iverson MD 22 [facility], [address] [place] [address] 07/04/2025 1:45 PM EST Office Visit [facility] Gastroenterology Clinic 10 [place] [address] Unknown, Unknown, Nola Hughes, ADALI 10 [place] [address] 07/10/2025 2:15 PM EST Office Visit [facility] Orthopedics & Sports Medicine [address] [place] [address] Angela Salcedo MD [address] [place] [address] Orthopedics & Sports Medicine, [place], [place] [id number] 12/08/2025 1:00 PM EDT Office Visit [facility] [address] [place] [address] 3rd Floor, [address] [place] [address] Enrique Garcia DO 22 [facility] [address] [place] [address] documented as of this encounter Visit Diagnoses Not on filedocumented in this encounter Additional Health Concerns Infection Onset Date Last Indicated Resolved Time CoV-Risk 08/27/2021 09/01/2021 09/12/2021 1:21 AM EDT documented as of this encounter Care Teams Programmer Or Analyst Relationship Specialty Start Date End Date Arturo Iverson MD [address] [place] [address], [address] [place] [address] PCP - General 04/14/17 12/17/20 Arturo Iverson MD [address] [place] [address], [address] [place] [address] PCP - General Internal Medicine 12/18/20 Arturo Iverson MD [address] [place] [address], [address] [place] [address] [email or web address] Insurance Assigned Provider 09/23/23 documented as of this encounter Additional Source Comments The information contained in this document represents components of the legal health record. It is not the complete legal health record.[facility]
--- OUTSIDE RECORDS SUMMARY | 2025-03-18 13:51 | XMS_ITS | Encounter Summary ---
Author Organization [facility] Address [address] [place] [address] Phone Care Team Providers Care Information Services Assistant Name Role Phone Arturo Iverson MD Primary Care Provider [phone] Arturo Iverson MD Unavailable [phone] Arturo Iverson MD Primary Care Provider [phone] Encounter Details Date Type Department Care Team (Late st Contact Info) Description 02/19/2019 Ancillary Orders [facility], X-Ray - [address] [place] [address] Mark Anthony Rondon MD [address] [place] [phone] [email or web address] Pain in wrist, left Social History Tobacco Use Types Packs/Day Years [...] Description 06/02/2025 1:00 PM EST Office Visit [facility] Medicine [address] [place] [address] [place] [address] Arturo Iverson MD 22 [facility], [address] [place] [address] 07/04/2025 1:45 PM EST Office Visit [facility] Gastroenterology Clinic 10 [place] [address] Unknown, Unknown, Nola Hughes, ADALI 10 [place] [address] 07/10/2025 2:15 PM EST Office Visit [facility] Orthopedics & Sports Medicine [address] [place] [address] Angela Salcedo MD [address] [place] [address] Orthopedics & Sports Medicine, [place] [address] 12/08/2025 1:00 PM EDT Office Visit [facility] [address] [place] [address] 3rd Floor, [address] [place] [address] Enrique Garcia DO 22 [facility] [address] [place] [address] documented as of this encounter Results * XR WRIST 3 OR MORE VIEWS (LEFT) (02/19/2019 12:28 PM EDT) Anatomical Region Laterality Modality Wrist Left Radiographic Kristin ging 02/19/2019 1:59 PM EDT Impressions 02/19/2019 2:03 PM EDT Moderate-severe osteoarthritic changes at the first carpometacarpal joint. POS - [id number] Narrative 02/19/2019 2:03 PM EDT HISTORY: Pain. COMPARISON: None VIEWS: Five views. FINDINGS: Marginal spurring, joint space narrowing and subchondral sclerosis at the first carpometacarpal joint. Other joint spaces well-maintained. No other evidence of significant arthritic changes. No fractures, subluxations or dislocations. No suspicious lytic or blastic lesions within the bones. No suspicious soft tissue calcifications. Procedure Note Mikie Cochran MD - 02/19/2019 HISTORY: Pain. COMPARISON: None VIEWS: Five views. FINDINGS: Marginal spurring, joint space narrowing and subchondral sclerosis at thefirst carpometacarpal joint. Other joint spaces well-maintained. Noother evidence of significant arthritic changes. No fractures,subluxations or dislocations. No suspicious lytic or blastic lesionswithin the bones. No suspicious soft tissue calcifications. IMPRESSION: Moderate-severe osteoarthritic changes at the first carpometacarpaljoint. POS - [id number] Mark Anthony Rondon MD IMG XR UPPER EXTREMITY Final Result documented in this encounter Visit Diagnoses Diagnosis Pain in wrist, left Pain in wrist, left documented in this encounter Additional Health Concerns Infection Onset Date Last Indicated Resolved Time CoV-Risk 08/27/2021 09/01/2021 09/12/2021 1:21 AM EDT Assessment Noted Time PHQ-2 Depression Total Score: 0 09/07/19 19 11:38 AM EDT documented as of this encounter Care Teams Information Services Assistant Relationship Specialty Start Date End Date Arturo Iverson MD 22 [facility], [address] [place] [address] PCP - General 04/14/17 12/17/20 Arturo Iverson MD 22 [facility], [address] [place] [address] PCP - General Internal Medicine 12/18/20 Arturo Iverson MD [address] [place] [address], [address] [place] [address] [email or web address] Insurance Assigned Provider 09/23/23 documented as of this encounter Additional Source Comments The information contained in this document represents components of the legal health record. It is not the complete legal health record.[facility]
--- OUTSIDE RECORDS SUMMARY | 2025-03-18 13:51 | XMS_ITS | Encounter Summary ---
Author Organization [facility] Address [address] [place] [address] Phone Care Team Providers Care Access Rn Name Role Phone Arturo Iverson MD Unavailable Arturo Iverson MD Primary Care Provider [phone] Encounter Details Date Type Department Care Team (Latest Contact Info) Description 04/23/2024 Ancillary Orders [facility], X-Ray - [address] [place] [address] Peter Horne, ENTERPRISE INTEGRATION ARCHITECT [address] [place] [address] [email or web address] Trochanteric bursitis of left hip (Primary Dx) Social History Tobacco Use Types [...] Description 06/02/2025 1:00 PM EST Office Visit [facility] Medicine [address] [place] [address] [place] [address] Arturo Iverson MD [address] [place] [address], [address] [place] [address] 07/04/2025 1:45 PM EST Office Visit [facility] Gastro[facility]ology Clinic 10 [place] [address] Unknown, Unknown, Nola Hughes, ENTERPRISE INTEGRATION ARCHITECT 10 [place] [address] 07/10/2025 2:15 PM EST Office Visit [facility] Orthopedics & Sports Medicine [address] [place] [address] Angela Salcedo MD [address] [place] [address] Orthoped[facility] & Sports [place] [address] 12/08/2025 1:00 PM EDT Office Visit [facility] [address] [place] [address] 3rd Floor, [address] [place] [address] Enrique Garcia DO 22 [facility] [address] [place] [address] documented as of this encounter Results * XR HIP 2 VW LEFT PLUS PELVIS (04/23/2024 3:29 PM EST) Anatomical Region Laterality Modality Hip, Pelvis Computed Radiogr aphy 04/24/2024 11:5 0 AM EST Impressions 04/24/2024 11:51 AM EST No acute fracture or dislocation. Moderate degenerative changes Narrative 04/24/2024 11:51 AM EST XR HIP 2 VW LEFT PLUS PELVIS Referring clinician's provided indication for this examination in [facility]: Pain COMPARISON: 10/10/2023 FINDINGS: Pelvis: No acute fracture or dislocation. SI joints and pubic symphysis are intact. Moderate degenerative changes in the right hip. Left hip: No acute fracture or dislocation. Moderate degenerative changes with joint space narrowing and marginal osteophytes off the acetabulum and femoral head. Procedure Note Christiano Muñoz MD - 04/24/2024 XR HIP 2 VW LEFT PLUS PELVIS Referring clinician's provided indication for this examination in [facility]:Pain COMPARISON: 10/10/2023 FINDINGS: Pelvis: No acute fracture or dislocation. SI joints and pubic symphysisare intact. Moderate degenerative changes in the right hip. Left hip: No acute fracture or dislocation. Moderate degenerative changeswith joint space narrowing and marginal osteophytes off the acetabulum andfemoral head. IMPRESSION: No acute fracture or dislocation. Moderate degenerative changes Peter Horne ENTERPRISE INTEGRATION ARCHITECT IMG XR PELVIS Final Res ult documented in this encounter Visit Diagnoses Diagnosis Trochanteric bursitis of left hip- Primary Trochanteric bursitis of left hip documented in this encounter Additional Health Concerns Assessment Noted Time PHQ-2 Depression Total Score: 0 05/29/20 23 12:33 PM EST documented as of this encounter Care Teams Access Rn Relationship Specialty Start Date End Date Arturo Iverson MD [address] [place] [address], [address] [place] [address] [email or web address] PCP - General Internal Medicine 12/18/20 Arturo Iverson MD [address] [place] [address], [address] [place] [address] [email or web address] Insurance Assigned Provider 09/23/23 documented as of this encounter Additional Source Comments The information contained in this document represents components of the legal health record. It is not the complete legal health record.[facility]
--- OUTSIDE RECORDS SUMMARY | 2025-03-18 13:51 | XMS_ITS | Encounter Summary ---
Author Organization [facility] Address [address] [place] [address] Phone Care Team Providers Care Set Up Mechanic Stamping Machines Name Role Phone Arturo Iverson MD Unavailable [phone] Arturo Iverson MD Primary Care Provider [phone] Encounter Details Date Type Department Care Team (Late st Contact Info) Description 08/09/2024 Ancillary Orders [facility], X-Ray - [address] [address] Mary Meyer PA 10 [place] [address] Small bowel obstruction (Primary Dx) Social History [...] Description 06/02/2025 1:00 PM EST Office Visit [address] [place] [address] Arturo Iverson MD [address] [place] [address], [address] [place] [address] [email or web address] 07/04/2025 1:45 PM EST Office Visit [facility] Gastroenterology Clinic [address] [place] [address] Unknown, Unknown, Nola Hughes, ADALI 10 [place] [address] 07/10/2025 2:15 PM EST Office Visit [facility] Orthopedics & Sports Medicine [address] [place] [phone] Angela Salcedo MD [address] [place] [address] Orthopedics & Sports Medicine, [place] [address] 12/08/2025 1:00 PM EDT Office Visit [facility] [address] [facility] 3rd Floor, [address] [place] [address] Enrique Garcia DO 22 [facility] [address] [place] [address] documented as of this encounter Visit Diagnoses Diagnosis Small bowel obstruction- Primary Unspecified intestinal obstruction documented in this encounter Additional Health Concerns Assessment Noted Time PHQ-2 Depression Total Score: 0 05/30/20 1:04 PM EST documented as of this encounter Care Teams Set Up Mechanic Stamping Machines Relationship Specialty Start Date End Date Arturo Iverson MD [address] [place] [address], [address] [place] [address] PCP - General Internal Medicine 12/18/20 Arturo Iverson MD [address] [place] [address], [address] [place] [address] Insurance Assigned Provider 09/23/23 documented as of this encounter Additional Source Comments The information contained in this document represents components of the legal health record. It is not the complete legal health record.[facility]
--- OUTSIDE RECORDS SUMMARY | 2025-03-18 13:51 | XMS_ITS | Encounter Summary ---
Author Organization [facility] Address [address] [facility] [address] [place] [address] Phone Care Team Providers Care Application Chemist Name Role Phone Arturo Iverson MD Unavailable [phone] Arturo Iverson MD Primary Care Provider [phone] Reason for Referral * Physical Therapy (Routine) - Closed Specialty Diagnoses / Procedures Referred By Rohit alexis Referred To Contact Physical Therapy Diagnoses Encounter for rehabilitation Mark Anthony Rondon MD Phone: tel: fax: [email or web address] [address] [address] Phone: tel: Referral ID Status Reason Start Date Expiration Date Visits Re quested Visits Authorized [id number] Closed 09/14/2022 09/15/2023 1 1 Encounter Details Date Type Department Care Team (Latest Contact Info) Description 09/14/2022 Transcribe Orders [facility] [address] [place] [address] Mark Anthony Rondon MD [address] [place] [phone] [email or web address] Encounter for rehabilitation (Primary Dx) Social History [...] Description 06/02/2025 1:00 PM EST Office Visit [address] [place] [address] Arturo Iverson MD [address] [place] [address], [address] [place] [address] 07/04/2025 1:45 PM EST Office Visit [facility] Gastroenterology Clinic [address] [place] [address] Unknown, Unknown, Nola Hughes, ADALI [address] [place] [address] 07/10/2025 2:15 PM EST Office Visit [facility] Orthopedics & Sports Medicine [address] [place] [address] Angela Salcedo MD [address] [place] [address] Orth[facility] [place] [address] 12/08/2025 1:00 PM EDT Office Visit [facility] [address] [place] [address] 3rd Floor, [address] [place] [address] Enrique Garcia DO 22 [facility] [address] [place] [address] [email or web address] Scheduled Referrals Name Type Priority Associated Diagnoses Orde r Schedule Ambulatory referral to [facility] Physical Therapy Outpatient Referral Routine Encounter for rehabilitation Ordered: 09/14/2022 documented as of this encounter Visit Diagnoses Diagnosis Encounter for rehabilitation- Primary documented in this encounter Additional Health Concerns Assessment Noted Time PHQ-2 Depression Total Score: 0 05/26/20 22 1:31 PM EST documented as of this encounter Care Teams Application Chemist Relationship Specialty Start Date End Date Arturo Iverson MD 22 [facility], [address] [place] [address] [email or web address] PCP - General Internal Medicine 12/18/20 Arturo Iverson MD 22 [facility], [address] [place] [address] Insurance Assigned Provider 09/23/23 documented as of this encounter Additional Source Comments The information contained in this document represents components of the legal health record. It is not the complete legal health record.[facility]
--- OUTSIDE RECORDS SUMMARY | 2025-03-18 13:51 | XMS_ITS | Encounter Summary ---
Author Organization [facility] Address [address] [place] [address] Phone Care Team Providers Care Venetian Blind Washer Name Role Phone Arturo Iverson MD Primary Care Provider [phone] Arturo Iverson MD Unavailable Arturo Iverson MD Primary Care Provider [phone] Encounter Details Date Type Department Care Team (Late Contact Info) Description 11/06/2018 Procedure Pass [facility] Admitting Dept Virtual Department [address] [place] [address] Social History Tobacco Use Types Packs/Day Years [...] Department Care Team (Late Contact Info) Description 06/02/2025 1:00 PM EST Office Visit [facility] Medicine [address] [place] [address] [place] [address] Arturo Iverson MD [address] [place] [address], [address] [place] [address] 07/04/2025 1:45 PM EST Office Visit [facility] G[facility] Clinic 10 [place] [address] Unknown, Unknown, Nola Hughes, ADALI 10 [place] [address] 07/10/2025 2:15 PM EST Office Visit [facility] Orthopedics & Sports Medicine [address] [place] [address] Angela Salcedo MD [address] [place] [address] Orthopedics & Sports Medicine, [facility] [place] [address] 12/08/2025 1:00 PM EDT Office Visit [facility] [address] [place] [address] 3rd Floor, [address] [place] [address] Enrique Garcia DO [address] [place] [address] [place] [address] documented as of this encounter Visit Diagnoses Not on filedocumented in this encounter Additional Health Concerns Infection Onset Date Last Indicated Resolved Time CoV-Risk 08/27/2021 09/01/2021 09/12/2021 1:21 AM EDT Assessment Noted Time PHQ-2 Depression Total Score: 0 09/07/19 19 11:38 AM EDT documented as of this encounter Care Teams Venetian Blind Washer Relationship Specialty Start Date End Date Arturo Iverson MD [address] [place] [address], [address] [place] [address] PCP - General 04/14/17 12/17/20 Arturo Iverson MD [address] [place] [address], [address] [place] [address] [email or web address] - General Internal Medicine 12/18/20 Arturo Iverson MD [address] [place] [address], [address] [place] [address] [email or web address] Insurance Assigned Provider 09/23/23 documented as of this encounter Additional Source Comments The information contained in this document represents components of the legal health record. It is not the complete legal health record.[facility]
--- OUTSIDE RECORDS SUMMARY | 2025-03-18 13:51 | XMS_ITS | Encounter Summary ---
Author Organization [facility] Address [address] [place] [address] Phone Care Team Providers Care Line Driver Name Role Phone Arturo Iverson MD Unavailable [phone] Arturo Iverson MD Primary Care Provider [phone] Encounter Details Date Type Department Care Team (Latest Contact Info) Description 01/03/2023 Transcribe Orders Virtual Department 30 [place] [address] Mark Anthony Rondon MD [address] [place] [phone] [email or web address] Spondylolisthesis, lumbar region (Primary Dx); Other spondylosis with radiculopathy, lumbar region; Other intervertebral disc degeneration, lumbar region Social History Tobacco Use Types [...] Description 06/02/2025 1:00 PM EST Office Visit [facility] Family Medicine [address] [place] [address] [place] [address] Arturo Iverson MD [address] [place] [address], [address] [place] [address] 07/04/2025 1:45 PM EST Office Visit [facility] 10 [place] [address] Unknown, Unknown, Nola Hughes, ADALI 10 [place] [address] 07/10/2025 2:15 PM EST Office Visit [facility] Orthopedics & Sports Medicine [address] [place] [address] Angela Salcedo MD [address] [place] [address] Orthopedics & Sports Medicine, [facility] [place] [address] 12/08/2025 1:00 PM EDT Office Visit [facility] [address] [place] [address] 3rd Floor, [address] [place] [address] Enrique Garcia DO [address] [facility] [address] [place] [address] documented as of this encounter Results * XR LUMBOSACRAL SPINE 2-3 VIEWS (01/03/2023 1:59 PM EDT) Anatomical Region Laterality Modality L-spine Computed Radiogr aphy 01/07/2023 4:12 PM EDT Impressions 01/07/2023 4:14 PM EDT Similar moderate multilevel lumbar spine degenerative change, most pronounced at L4-5. Narrative 01/07/2023 4:14 PM EDT XR LUMBOSACRAL SPINE 2-3 VIEWS COMPARISON: MRI LUMBAR SPINE (BONE) WITHOUT CONTRAST ; CT ABDOMEN/PELVIS WITH CONTRAST FINDINGS: ALIGNMENT: 9 mm L4-5 anterolisthesis. VERTEBRAE: Bones demineralized. Vertebral body heights preserved. DISCS: Disc height loss and endplate sclerosis and marginal osteophytes L-1-L5. FACETS: Facet arthropathy L2-S1. PARASPINAL SOFT TISSUES: Constipation. 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 VERTEBRAE: Bones demineralized. Vertebral body heights preserved. DISCS: Disc height loss and endplate sclerosis and marginal ezeleqfqtndU-0-U5. FACETS: Facet arthropathy L2-S1. PARASPINAL SOFT TISSUES: Constipation. Sclerosis of the sacroiliac jointsbilaterally along the iliac sides, nonspecific but may reflect osteitiscondensans ilii IMPRESSION: Similar moderate multilevel lumbar spine degenerative change, mostpronounced at L4-5. us Mark Anthony Rondon MD IMG XR SPINE Final R esult documented in this encounter Visit Diagnoses Diagnosis Spondylolisthesis, lumbar region- Primary Other spondylosis with radiculopathy, lumbar region Other intervertebral disc degeneration, lumbar region Spondylolisthesis, lumbar region Other spondylosis with radiculopathy, lumbar region Other intervertebral disc degeneration, lumbar region documented in this encounter Additional Health Concerns Assessment Noted Time PHQ-2 Depression Total Score: 0 05/26/20 22 1:31 PM EST documented as of this encounter Care Teams Line Driver Relationship Specialty Start Date End Date Arturo Iverson MD [address] [facility], [address] [place] [address] PCP - General Internal Medicine 12/18/20 Arturo Iverson MD [address] [facility], [address] [place] [address] Insurance Assigned Provider 09/23/23 documented as of this encounter Additional Source Comments The information contained in this document represents components of the legal health record. It is not the complete legal health record.[facility]
--- OUTSIDE RECORDS SUMMARY | 2025-03-18 13:51 | XMS_ITS | Encounter Summary ---
Author Organization [facility] Address [address] [place] [address] Phone Care Team Providers Care Used Car Sales Manager Name Role Phone Arturo Iverson MD Unavailable [phone] Arturo Iverson MD Primary Care Provider [phone] Encounter Details Date Type Department Care Team (Late st Contact Info) Description 08/09/2024 Ancillary Orders [facility], X-Ray - [address] [address] Mary Meyer PA 10 [place] [address] Small bowel obstruction (Primary Dx) Social History [...] Description 06/02/2025 1:00 PM EST Office Visit [address] [place] [address] Arturo Iverson MD [address] [place] [address], [address] [place] [address] [email or web address] 07/04/2025 1:45 PM EST Office Visit [facility] Gastro[facility]ology Clinic [address] [place] [address] Unknown, Unknown, Nola Hughes, ADALI 10 [place] [address] 07/10/2025 2:15 PM EST Office Visit [facility] Orthopedics & Sports Medicine [address] [place] [address] [phone] Angela Salcedo MD [address] [place] [address] Orthopedics & Sports Medicine, [place] [address] 12/08/2025 1:00 PM EDT Office Visit [facility] [address] [facility] 3rd Floor, [address] [place] [address] Enrique Garcia DO 22 [facility] [address] [place] [address] documented as of this encounter Visit Diagnoses Diagnosis Small bowel obstruction- Primary Unspecified intestinal obstruction documented in this encounter Additional Health Concerns Assessment Noted Time PHQ-2 Depression Total Score: 0 05/30/20 1:04 PM EST documented as of this encounter Care Teams Used Car Sales Manager Relationship Specialty Start Date End Date Arturo Iverson MD [address] [place] [address], [address] [place] [address] PCP - General Internal Medicine 12/18/20 Arturo Iverson MD [address] [place] [address], [address] [place] [address] Insurance Assigned Provider 09/23/23 documented as of this encounter Additional Source Comments The information contained in this document represents components of the legal health record. It is not the complete legal health record.[facility]
--- OUTSIDE RECORDS SUMMARY | 2025-03-18 13:51 | XMS_ITS | Encounter Summary ---
Author Organization [facility] Address [address] [facility] [address] [place] [address] Phone Care Team Providers Care Global Logistics Manager Name Role Phone Arturo Iverson MD Primary Care Provider Arturo Iverson MD Unavailable [phone] Arturo Iverson MD Primary Care Provider [phone] Encounter Details Date Type Department Care Team (Late st Contact Info) Description 01/21/2019 Transcribe Orders [facility] 29 [place] [address] Arturo Iverson MD 22 [facility], [address] [place] [address] [email or web address] Social History Tobacco Use [...] Description 06/02/2025 1:00 PM EST Office Visit [address] [place] [address] Arturo Iverson MD [address] [place] [address], [address] [place] [address] 07/04/2025 1:45 PM EST Office Visit [facility] 10 [place] [address] Unknown, Unknown, Nola Hughes, ADALI 10 [place] [address] 07/10/2025 2:15 PM EST Office Visit [facility] Orthopedics & Sports Medicine [address] [place] [address] Angela Salcedo MD [address] [place] [address] Orthopedics & Sports Medicine, [place] [address] 12/08/2025 1:00 PM EDT Office Visit [facility] [address] [place] [address] 3rd Floor, [address] [place] [address] Enrique Garcia DO [address] [place] [address] [place] [address] documented as of this encounter Visit Diagnoses Not on filedocumented in this encounter Additional Health Concerns Infection Onset Date Last Indicated Resolved Time CoV-Risk 08/27/2021 09/01/2021 09/12/2021 1:21 AM EDT Assessment Noted Time PHQ-2 Depression Total Score: 0 09/07/19 19 11:38 AM EDT documented as of this encounter Care Teams Global Logistics Manager Relationship Specialty Start Date End Date Arturo Iverson MD [address] [place] [address], [address] [place] [address] [email or web address] PCP - General 04/14/17 12/17/20 Arturo Iverson MD 22 [facility], [address] [place] [address] [email or web address] PCP - General Internal Medicine 12/18/20 Arturo Iverson MD 22 [facility], [address] [place] [address] [email or web address] Insurance Assigned Provider 09/23/23 documented as of this encounter Additional Source Comments The information contained in this document represents components of the legal health record. It is not the complete legal health record.[facility]
--- OUTSIDE RECORDS SUMMARY | 2025-03-18 13:51 | XMS_ITS | Encounter Summary ---
Author Organization [facility], Address [address] [place] [address] Phone Care Team Providers Care Fermentation Operator Name Role Phone Arturo Iverson MD Primary Care Provider [phone] Encounter Details Date Type Department Care Team (Late st Contact Info) Description 06/16/2020 Orders Only [facility] - [facility] [address] [facility] 3 [place] [phone] Darshan Tyson MD Flank pain Social History Tobacco Use Types Packs/Day [...] on file documented as of this encounter Progress Notes * Darshan Tyson MD - 06/16/2020 11:59 PM EST Was ok Bilateral renal cyst documented in this encounter Plan of Treatment Upcoming Encounters Date Type Department Care Team (Late st Contact Info) Description 07/11/2025 11:00 AM EST Office Visit [facility] [place] [phone] Ty Lyon MD [address] [place] [address] [place] [phone] documented as of this encounter Procedures Procedure Name Priority Date/Time Associated Diagnosis Comments US RENAL COMPLETE Routine 06/24/2020 1:2 2 PM EST Flank pain documented in this encounter Results * Ultrasound renal complete (06/24/2020 1:22 PM EST) Anatomical Region Laterality Modality Body Ultrasound us Darshan Tyson MD [facility] US PROCEDURES Final Result documented in this encounter Visit Diagnoses Diagnosis Flank pain documented in this encounter Care Teams Fermentation Operator Relationship Specialty Start Date End Date Arturo Iverson MD [address] [place] [address], [address] [place] [address] PCP - General 04/23/19 documented as of this encounter
--- OUTSIDE RECORDS SUMMARY | 2025-03-18 13:51 | XMS_ITS | Encounter Summary ---
Author Organization [facility] Address [address] [place] [address] Phone Care Team Providers Care Safety Investigator Name Role Phone Arturo Iverson MD Primary Care Provider [phone] Reason for Visit * Reason Comments Med Refill Encounter Details Date Type Department Care Team (Late Contact Info) Description 03/17/2022 Refill [facility] [address] [facility] 3 [place] [phone] Darshan Tyson MD Social History Tobacco Use Types Packs/Day Years Used Date Smoking Tobacco: Former Alcohol Use Standard Drinks/Week Comments No 0 (1 standard drink = 0.6 oz pur e alcohol) Comments Unknown Sex and Gender Information Value Date Recorded Sex Assigned at Not on file Legal Sex Female 4:35 PM EST Gender Identity Not on file Sexual Orientation Not on file COVID-19 Exposure Response Date Recorded In the last 10 days, have yo u been in contact with someone who was confirmed or suspected to have Coronavirus/COVID-19? No / Unsure 03/14/2022 11:22 AM EDT documented as of this encounter Plan of Treatment Upcoming Encounters Date Type Department Care Team (Late Contact Info) Description 07/11/2025 11:00 AM EST Office Visit [facility] [address] [place] [phone] Ty Lyon MD [address] [place] [address] [place] [phone] documented as of this encounter Visit Diagnoses Not on filedocumented in this encounter Care Teams Safety Investigator Relationship Specialty Start Date End Date Arturo Iverson MD [address] [place] [address], [address] [place] [phone] PCP - General 04/23/19 documented as of this encounter
--- OUTSIDE RECORDS SUMMARY | 2025-03-18 13:51 | XMS_ITS | Encounter Summary ---
Author Organization [facility] Address [address] [place] [address] Phone Care Team Providers Care Linux Unix System Administrator Name Role Phone Arturo Iverson MD Primary Care Provider [phone] rAturo Iverson MD Unavailable [phone] Arturo Iverson MD Primary Care Provider [phone] Encounter Details Date Type Department Care Team (Late st Contact Info) Description 12/03/2017 Procedure Pass [facility], Ct Scan - [address] [address] Social History Tobacco Use Types Packs/Day Years [...] 06/02/2025 1:00 PM EST Office Visit [facility] Medicine [address] [place] [address] [place] [address] Arturo Iverson MD 22 [facility], [address] [place] [address] 07/04/2025 1:45 PM EST Office Visit [facility] Gastroenterology Clinic 10 [place] [address] Unknown, Unknown, Nola Hughes, ADALI 10 [place] [address] 07/10/2025 2:15 PM EST Office Visit [facility] Orthopedics & Sports Medicine [address] [place] [address] Angela Salcedo MD [address] [place] [address] Orthopedics & Sports Medicine, [place], [place] [phone] 12/08/2025 1:00 PM EDT Office Visit [facility] [address] [place] [address] 3rd Floor, [address] [place] [address] Enrique Garcia DO [address] [facility] [address] [place] [address] documented as of this encounter Visit Diagnoses Not on filedocumented in this encounter Additional Health Concerns Infection Onset Date Last Indicated Resolved Time CoV-Risk 08/27/2021 09/01/2021 09/12/2021 1:21 AM EDT documented as of this encounter Care Teams Linux Unix System Administrator Relationship Specialty Start Date End Date Arturo Iverson MD [address] [place] [address], [address] [place] [address] PCP - General 04/14/17 12/17/20 Arturo Iverson MD [address] [place] [address], [address] [place] [address] [email or web address] PCP - General Internal Medicine 12/18/20 Arturo Iverson MD [address] [place] [address], [address] [place] [address] [email or web address] Insurance Assigned Provider 09/23/23 documented as of this encounter Additional Source Comments The information contained in this document represents components of the legal health record. It is not the complete legal health record.[facility]
--- OUTSIDE RECORDS SUMMARY | 2025-03-18 13:51 | XMS_ITS | Encounter Summary ---
Author Organization [facility] Address [address] [facility] [address] [place] [address] Phone Care Team Providers Care Commercial Lease Administrator Name Role Phone Arturo Iverson MD Primary Care Provider [phone] Arturo Iverson MD Unavailable [phone] Arturo Iverson MD Primary Care Provider [phone] Encounter Details Date Type Department Care Team (Latest Contact Info) Description 11/11/2020 Transcribe Orders [facility] [address] [place] [address] Arturo Iverson MD 22 [facility], [address] [place] [address] [email or web address] Essential hypertension; Anemia in stage 3a chronic kidney disease; Acquired hypothyroidism Social History Tobacco Use Types Packs/Day Years [...] PM EDT documented as of this encounter Progress Notes * Arturo Iverson MD - 11/11/2020 3:14 PM EDT Call patient, kidney function is slightly worse, increase fluid intake. Minimal elevation in liver function test. Other tests were normal. It is important she stays hydrated during the warmer weather. documented in this encounter Plan of Treatment Upcoming Encounters Date Type Department Care Team (Late st Contact Info) Description 06/02/2025 1:00 PM EST Office Visit [address] [place] [address] Arturo Iverson MD [address] [place] [address], [address] [place] [address] 07/04/2025 1:45 PM EST Office Visit [facility] Gastroenterology Clinic 10 [place] [address] Unknown, Unknown, Nola Hughes, ADALI 10 [place] [address] 07/10/2025 2:15 PM EST Office Visit [facility] Orthopedics & Sports Medicine [address] [place] [address] Angela Salcedo MD [address] [place] [address] [facility] [place] [address] 12/08/2025 1:00 PM EDT Office Visit [facility] [address] [place] [address] 3rd Floor, [address] [place] [address] Enrique Garcia DO [address] [place] [address] [place] [address] [email or web address] documented as of this encounter Procedures Procedure Name Priority Date/Time Associated Diagnosis Comments COMPREHENSIVE METABOLIC PANEL Routine 11/11/2020 3:14 PM EDT Essential hypertension Anemia in stage 3a chronic kidney disease TSH WITH REFLEX Routine 11/11/2020 3:14 PM EDT Acquired hypothyroidism CBC AND DIFFERENTIAL Routine 11/11/2020 3:14 PM EDT Essential hypertension Anemia in stage 3a chronic kidney disease documented in this encounter Results * TSH with reflex (11/11/2020 3:14 PM EDT) TSH 2.21 0.27 - 4.20 uIU/mL [facility] Blood 11/11/2020 3:14 PM EDT 11/11/2020 3:18 PM EDT us Arturo Iverson MD LAB BLOOD ORDERABLES Final Res ult [facility] 30 [place], [place] [id number] * (ABNORMAL) CBC and differential (11/11/2020 3:14 PM EDT) WBC 10.85 4.00 - 11.00 K/uL [facility] RBC 4.23 3.72 - 5.30 M/uL [facility] HGB 13.0 11.4 - 15.9 g/dL [facility] HCT 39.7 34.2 - 46.8 % [facility] PLT 335 140 - 430 K/uL [facility] MCV 93.9 78.0 - 97.0 fL [facility] MCH 30.7 25.0 - 33.0 pg [facility] MCHC 32.7 32.0 - 36.0 g/dL [facility] RDW 14.2 11.0 - 16.0 % [facility] MPV 11.3 8.4 - 12.8 fl [facility] NRBC 0.00 0 /100 WBCs [facility] ABSOLUTE NRBC 0.00 0 K/uL [facility] DIFF METHOD Auto [facility] NEUTS 60.7 43.0 - 75.0 % [facility] LYMPHS 25.0 18.2 - 47.4 % [facility] MONOS 10.6 4.00 - 11.00 % [facility] EOS 2.6 0.0 - 8.0 % [facility] BASOS 0.7 0.0 - 2.0 % [facility] Granulocytes, immature (%) 0.4 0.0 - 0.9 % [facility] ABSOLUTE NEUTS 6.59 1.80 - 7.70 K/uL [facility] ABSOLUTE LYMPHS 2.71 1.00 - 3.10 K/uL [facility] ABSOLUTE MONOS 1.15(H) 0.20 - 0.80 K/uL [facility] ABSOLUTE EOS 0.28 0.00 - 0.80 K/uL [facility] ABSOLUTE BASOS 0.08 0.00 - 0.09 K/uL [facility] Granulocytes, immature 0.04 0.00 - 0.05 K/uL [facility] Blood 11/11/2020 3:14 PM EDT 11/11/2020 3:18 PM EDT us Arturo Iverson MD LAB BLOOD ORDERABLES Final Res ult [address] [address] * (ABNORMAL) Comprehensive metabolic panel (11/11/2020 3:14 PM EDT) SODIUM 139 133 - 146 mmol/L [facility] POTASSIUM 3.7 3.3 - 5.1 mmol/L [facility] CHLORIDE 102 96 - 108 mmol/L [facility] CO2 25 21 - 35 mmol/L [facility] BUN 31(H) 6 - 19 mg/dL [facility] CREATININE 1.70(H) 0.5 - 1.5 mg/dL [facility] GLUCOSE 75 70 - 99 mg/dL [facility] ALBUMIN 4.3 3.9 - 4.8 g/dL [facility] TOTAL PROTEIN 7.2 6.5 - 8.0 g/dL [facility] CALCIUM 9.9 8.4 - 10.3 mg/dL [facility] ALKALINE PHOSPHATASE 72 39 - 117 U/L [facility] TOTAL BILIRUBIN 0.3 0.0 - 1.2 mg/dL [facility] AST 58(H) 0 - 37 U/L [facility] ALT 37 0 - 40 U/L [facility] GLOBULIN 2.9 1 - 4.8 g/dL [facility] EGFR 30(L) >59 mL/min/1.7 3m2 [facility] Comment:Estimated glomerular filtration rate calculated using the CKD-EPI equation. ANION GAP 16 10 - 20 mmol/L [facility] Blood 11/11/2020 3:14 PM EDT 11/11/2020 3:18 PM EDT us Arturo Iverson MD LAB BLOOD ORDERABLES Final Res ult Performing Organization Address City/State/[facility] Co de Phone Number [address] [address] documented in this encounter Visit Diagnoses Diagnosis Essential hypertension Unspecified essential hypertension Anemia in stage 3a chronic kidney disease Acquired hypothyroidism Unspecified hypothyroidism documented in this encounter Additional Health Concerns Infection Onset Date Last Indicated Resolved Time CoV-Risk 08/27/2021 09/01/2021 09/12/2021 1:21 AM EDT Assessment Noted Time PHQ-2 Depression Total Score: 0 02/06/20 20 3:42 PM EDT documented as of this encounter Care Teams Commercial Lease Administrator Relationship Specialty Start Date End Date Arturo Iverson MD [address] [facility], [address] [address] PCP - General 04/14/17 12/17/20 Arturo Iverson MD [address] [facility], [address] [address] PCP - General Internal Medicine 12/18/20 Arturo Iverson MD [address] [place] [address], [address] [place] [address] [email or web address] Insurance Assigned Provider 09/23/23 documented as of this encounter Additional Source Comments The information contained in this document represents components of the legal health record. It is not the complete legal health record.[facility]
--- OUTSIDE RECORDS SUMMARY | 2025-03-18 13:51 | XMS_ITS | Encounter Summary ---
Author Organization [facility] Address [address] [facility] [address] [place] [address] Phone Care Team Providers Care Supply Controller Name Role Phone Arturo Iverson MD Primary Care Provider [phone] Arturo Iverson MD Unavailable [phone] Arturo Iverson MD Primary Care Provider [phone] Encounter Details Date Type Department Care Team (Latest Contact Info) Description 11/19/2018 Transcribe Orders [facility] [address] [place] [address] Darshan Tyson MD [address] [place] [address], 3 [place] [address] Stage 3b chronic kidney disease (Primary Dx) Social History Tobacco Use Types [...] Description 06/02/2025 1:00 PM EST Office Visit [facility] Medicine [address] [place] [address] [place] [address] Arturo Iverson MD [address] [facility], [address] [place] [address] 07/04/2025 1:45 PM EST Office Visit [facility] 10 [place] [address] Unknown, Unknown, Nola Hughes, ADALI 10 [place] [address] 07/10/2025 2:15 PM EST Office Visit [facility] Orth[facility] & [facility] Medicine [address] [place] [address] Angela Salcedo MD [address] [place] [address] Orthopedics & Sports Medicine, [place], [place] [id number] 12/08/2025 1:00 PM EDT Office Visit [facility] [address] [place] [address] 3rd Floor, [address] [place] [address] Enrique Garcia DO [address] [place] [address] [place] [address] documented as of this encounter Results * (ABNORMAL) CBC and differential (01/21/2019 10:03 AM EDT) WBC 8.45 3.40 - 11.20 K/uL [facility] RBC 4.64 3.80 - 4.80 M/uL [facility] HGB 13.9 12.0 - 15.0 g/dL [facility] HCT 41.5 36.0 - 46.0 % [facility] PLT 446(H) 130 - 400 K/uL [facility] MCV 89.4 79.0 - 98.0 fL [facility] MCH 30.0 27.0 - 34.8 pg [facility] MCHC 33.5 31.5 - 36.0 g/dL [facility] RDW 14.7(H) 10.8 - 14.6 % [facility] MPV 10.5 9.4 - 12.4 fl [facility] NRBC 0.00 0.00 /100 WBCs [facility] ABSOLUTE NRBC 0.00 0.00 K/uL [facility] DIFF METHOD Auto [facility] NEUTS 70.3 45.30 - 77.70 % [facility] LYMPHS 17.9 12.30 - 39.70 % [facility] MONOS 7.5 4.10 - 12.80 % [facility] EOS 3.0 0 - 7.2 % [facility] BASOS 0.8 0 - 2.80 % [facility] Granulocytes, immature (%) 0.5 0.0 - 0.9 % [facility] ABSOLUTE NEUTS 5.95 1.40 - 7.70 K/uL [facility] ABSOLUTE LYMPHS 1.51 0.60 - 3.20 K/uL [facility] ABSOLUTE MONOS 0.63(H) 0.11 - 0.59 K/uL [facility] ABSOLUTE EOS 0.25 0.01 - 0.50 K/uL [facility] ABSOLUTE BASOS 0.07 0.00 - 0.08 K/uL [facility] Granulocytes, immature 0.04 0.00 - 0.05 K/uL [facility] Blood 01/21/2019 10:0 3 AM EDT 01/21/2019 10:08 AM EDT us Darshan Tyson MD LAB BLOOD ORDERABLES Final Re sult [facility] [address] [place] [address] * TOTAL PROTEIN CREATININE RATIO, RANDOM URINE (01/21/2019 10:03 AM EDT) URINE TOTAL PROTEIN 19.2 mg/dL [facility] URINE CREATININE 127 mg/dL [facility] URINE TP CRE RATIO 0.15 0 - 0.19 [facility] Urine (Urine) 01/21/2019 10: 03 AM EDT 01/21/2019 10:09 AM EDT us Darshan Tyson MD URINE ORDERABLES Final Result Performing Organization Address [facility]/ZIP Co de Phone Number [address] [address] * Phosphorus (01/21/2019 10:03 AM EDT) PHOSPHORUS 3.4 2.7 - 4.5 mg/dL [facility] Blood 01/21/2019 10:0 3 AM EDT 01/21/2019 10:08 AM EDT us Darshan Tyson MD LAB BLOOD ORDERABLES Final Re sult Performing Organization Address [facility]/ZIP Co de Phone Number [address] [address] * Magnesium (01/21/2019 10:03 AM EDT) MAGNESIUM 2.1 1.6 - 2.6 mg/dL [facility] Blood 01/21/2019 10:0 3 AM EDT 01/21/2019 10:08 AM EDT us Darshan Tyson MD LAB BLOOD ORDERABLES Final Re sult Performing Organization Address [facility] Co de Phone Number [address] [address] * Albumin (01/21/2019 10:03 AM EDT) ALBUMIN 4.5 3.9 - 4.8 g/dL [facility] Blood 01/21/2019 10:0 3 AM EDT 01/21/2019 10:08 AM EDT us Darshan Tyson MD LAB BLOOD ORDERABLES Final Re sult [address] [address] * (ABNORMAL) Basic metabolic panel (01/21/2019 10:03 AM EDT) SODIUM 144 133 - 146 mmol/L [facility] CHLORIDE 106 96 - 108 mmol/L [facility] POTASSIUM 4.0 3.3 - 5.1 mmol/L [facility] CO2 24 21 - 35 mmol/L [facility] BUN 21(H) 6 - 19 mg/dL [facility] CREATININE 1.40 0.5 - 1.5 mg/dL [facility] GLUCOSE 115(H) 70 - 99 mg/dL [facility] CALCIUM 10.0 8.4 - 10.3 mg/dL [facility] EGFR 39(L) >59 mL/min/1.7 3m2 [facility] Comment:If patient is black, multiply result by 1.159. Estimated glomerular filtration rate calculated using the CKD-EPI equation. ANION GAP 18 10 - 20 mmol/L [facility] Blood 01/21/2019 10:0 3 AM EDT 01/21/2019 10:08 AM EDT us Darshan Tyson MD LAB BLOOD ORDERABLES Final Re sult Performing Organization Address [facility]/ZIP Co de Phone Number [address] [address] * Parathyroid hormone (PTH) (01/21/2019 10:03 AM EDT) PARATHYROID HORMONE 48 15 - 65 pg/mL [facility] Blood 01/21/2019 10:0 3 AM EDT 01/21/2019 10:09 AM EDT us Darshan Tyson MD LAB BLOOD ORDERABLES Final Re sult [address] [address] * (ABNORMAL) CBC and differential (11/19/2018 1:59 PM EDT) WBC 8.35 3.40 - 11.20 K/uL [facility] RBC 4.49 3.80 - 4.80 M/uL [facility] HGB 13.3 12.0 - 15.0 g/dL [facility] HCT 40.6 36.0 - 46.0 % [facility] PLT 348 130 - 400 K/uL [facility] MCV 90.4 79.0 - 98.0 fL [facility] MCH 29.6 27.0 - 34.8 pg [facility] MCHC 32.8 31.5 - 36.0 g/dL [facility] RDW 13.8 10.8 - 14.6 % [facility] MPV 11.3 9.4 - 12.4 fl [facility] NRBC 0.00 0.00 /100 WBCs [facility] ABSOLUTE NRBC 0.00 0.00 K/uL [facility] DIFF METHOD Auto [facility] NEUTS 71.0 45.30 - 77.70 % [facility] LYMPHS 19.5 12.30 - 39.70 % [facility] MONOS 7.2 4.10 - 12.80 % [facility] EOS 1.2 0 - 7.2 % [facility] BASOS 0.7 0 - 2.80 % [facility] Granulocytes, immature (%) 0.4 0.0 - 0.9 % [facility] ABSOLUTE NEUTS 5.93 1.40 - 7.70 K/uL [facility] ABSOLUTE LYMPHS 1.63 0.60 - 3.20 K/uL [facility] ABSOLUTE MONOS 0.60(H) 0.11 - 0.59 K/uL [facility] ABSOLUTE EOS 0.10 0.01 - 0.50 K/uL [facility] ABSOLUTE BASOS 0.06 0.00 - 0.08 K/uL [facility] Granulocytes, immature 0.03 0.00 - 0.05 K/uL [facility] Blood 11/19/2018 1:59 PM EDT 11/19/2018 2:09 PM EDT us Darshan Tyson MD LAB BLOOD ORDERABLES Final Re sult Performing Organization Address [facility]/ZIP Co de Phone Number [address] [address] * TOTAL PROTEIN CREATININE RATIO, RANDOM URINE (11/19/2018 1:59 PM EDT) URINE TOTAL PROTEIN 6.9 mg/dL [facility] URINE CREATININE 48 mg/dL [facility] URINE TP CRE RATIO 0.14 0 - 0.19 [facility] Urine (Urine) 11/19/2018 1:5 9 PM EDT 11/19/2018 2:07 PM EDT Darshan Tyson MD URINE ORDERABLES Final Result Performing Organization Address [facility] de Phone Number [address] [address] * Phosphorus (11/19/2018 1:59 PM EDT) PHOSPHORUS 3.6 2.7 - 4.5 mg/dL [facility] Blood 11/19/2018 1:59 PM EDT 11/19/2018 2:09 PM EDT Drashan Tyson MD LAB BLOOD ORDERABLES Final Re sult Performing Organization Address [facility]/ZIP Co de Phone Number [address] [address] * Magnesium (11/19/2018 1:59 PM EDT) MAGNESIUM 2.0 1.6 - 2.6 mg/dL [facility] Blood 11/19/2018 1:59 PM EDT 11/19/2018 2:09 PM EDT Darshan Tyson MD LAB BLOOD ORDERABLES Final Re sult Performing Organization Address [facility]/ZIP Co de Phone Number [address] [address] * Albumin (11/19/2018 1:59 PM EDT) ALBUMIN 4.2 3.9 - 4.8 g/dL [facility] Blood 11/19/2018 1:59 PM EDT 11/19/2018 2:09 PM EDT Darshan Tyson MD LAB BLOOD ORDERABLES Final Re sult [address] [address] * (ABNORMAL) Basic metabolic panel (11/19/2018 1:59 PM EDT) [facility] SODIUM 141 133 - 146 mmol/L [facility] CHLORIDE 101 96 - 108 mmol/L [facility] POTASSIUM 3.6 3.3 - 5.1 mmol/L [facility] CO2 23 21 - 35 mmol/L [facility] BUN 18 6 - 19 mg/dL [facility] CREATININE 1.50 0.5 - 1.5 mg/dL [facility] GLUCOSE 105(H) 70 - 99 mg/dL [facility] CALCIUM 9.8 8.4 - 10.3 mg/dL [facility] EGFR 36(L) >59 mL/min/1.7 3m2 [facility] Comment:If patient is black, multiply result by 1.159. Estimated glomerular filtration rate calculated using the CKD-EPI equation. ANION GAP 21(H) 10 - 20 mmol/L [facility] Blood 11/19/2018 1:59 PM EDT 11/19/2018 2:09 PM EDT Darshan Tyson MD LAB BLOOD ORDERABLES Final Re sult Performing Organization Address [facility]/ZIP Co de Phone Number [address] [address] * Parathyroid hormone (PTH) (11/19/2018 1:59 PM EDT) PARATHYROID HORMONE 63 15 - 65 pg/mL [facility] Blood 11/19/2018 1:59 PM EDT 11/19/2018 2:08 PM EDT us Darshan Tyson MD LAB BLOOD ORDERABLES Final Re sult [facility] [address] [place] [address] documented in this encounter Visit Diagnoses Diagnosis Stage 3b chronic kidney disease- Primary documented in this encounter Additional Health Concerns Infection Onset Date Last Indicated Resolved Time CoV-Risk 08/27/2021 09/01/2021 09/12/2021 1:21 AM EDT Assessment Noted Time PHQ-2 Depression Total Score: 0 09/07/19 19 11:38 AM EDT documented as of this encounter Care Teams Supply Controller Relationship Specialty Start Date End Date Arturo Iverson MD [address] [facility], [address] [place] [address] PCP - General 04/14/17 12/17/20 Arturo Iverson MD [address] [facility], [address] [place] [address] PCP - General Internal Medicine 12/18/20 Arturo Iverson MD [address] [facility], [address] [place] [address] Insurance Assigned Provider 09/23/23 documented as of this encounter Additional Source Comments The information contained in this document represents components of the legal health record. It is not the complete legal health record.[facility]
--- OUTSIDE RECORDS SUMMARY | 2025-03-18 13:51 | XMS_ITS | Encounter Summary ---
Author Organization [facility] Address [address] [place] [address] Phone Care Team Providers Care Lumber Grader Name Role Phone Arturo Iverson MD Primary Care Provider [phone] Reason for Visit * Reason Comments Med Refill Encounter Details Date Type Department Care Team (Late Contact Info) Description 03/30/2022 Refill [facility] [address] [facility] 3 [place] [phone] Darshan Tyson MD Social History Tobacco Use [...] Visit [facility] - [facility]DON[address] [address] [place] [phone] Ty Lyon MD [address] [place] [address] [place] [phone] documented as of this encounter Visit Diagnoses Not on filedocumented in this encounter Care Teams Lumber Grader Relationship Specialty Start Date End Date Arturo Iverson MD [address] [place] [address], [address] [place] [id number] PCP - General 04/23/19 documented as of this encounter
--- OUTSIDE RECORDS SUMMARY | 2025-03-18 13:51 | XMS_ITS | Encounter Summary ---
Author Organization [facility] Address [address] [place] [address] Phone Care Team Providers Care Movie Writer Name Role Phone Arturo Iverson MD Unavailable [phone] Arturo Iverson MD Primary Care Provider [phone] Encounter Details Date Type Department Care Team (Latest Contact Info) Description 03/01/2021 Transcribe Orders Virtual Department [address] [place] [address] Mark Anthony Rondon MD [address] [place] [phone] [email or web address] Left hip pain (Primary Dx) Social History Tobacco Use Types [...] Description 06/02/2025 1:00 PM EST Office Visit [address] [place] [address] Arturo Iverson MD [address] [place] [address], [address] [place] [address] 07/04/2025 1:45 PM EST Office Visit [facility] 10 [place] [address] Unknown, Unknown, Nola Hughes, ADALI [address] [place] [address] 07/10/2025 2:15 PM EST Office Visit [facility] Orthopedics & Sports Medicine [address] [place] [address] Angela Salcedo MD [address] [place] [address] Orthopedics & Sports Medicine, [place] [address] 12/08/2025 1:00 PM EDT Office Visit [facility] [address] [place] [address] 3rd Floor, [address] [place] [address] Enrique Garcia DO [address] [place] [address] [place] [address] documented as of this encounter Results * XR HIP 2 VW LEFT PLUS PELVIS (03/01/2021 3:19 PM EDT) Anatomical Region Laterality Modality Hip, Pelvis Computed Radiogr aphy 03/01/2021 3:54 PM EDT Impressions 03/01/2021 3:55 PM EDT Mild left hip osteoarthritis. No finding of fracture. Narrative 03/01/2021 3:55 PM EDT AP view the pelvis and AP and frog-lateral views left hip. No prior. No fracture or malalignment. No gross sclerosis or erosion SI joints. No marked proliferative changes in the visualized lower lumbar spine. There is minor joint space loss at the left hip, particularly axially compared to the right. There is some trace spurring suggested bilaterally, more on the left and better seen on frog-lateral view. No clear findings for AVN on the left. Some stable lines noted in the right lower quadrant. Procedure Note Enrique Soriano MD - 03/01/2021 AP view the pelvis and AP and frog-lateral views left hip. No prior. Nofracture or malalignment. No gross sclerosis or erosion SI joints. Nomarked proliferative changes in the visualized lower lumbar spine. Thereis minor joint space loss at the left hip, particularly axially comparedto the right. There is some trace spurring suggested bilaterally, more onthe left and better seen on frog-lateral view. No clear findings for AVNon the left. Some stable lines noted in the right lower quadrant. IMPRESSION: Mild left hip osteoarthritis. No finding of fracture. Mark Anthony Rondon MD IMG XR PELVIS Final R esult documented in this encounter Visit Diagnoses Diagnosis Left hip pain- Primary Pain in joint, pelvic region and thigh Left hip pain Pain in joint, pelvic region and thigh documented in this encounter Additional Health Concerns Infection Onset Date Last Indicated Resolved Time CoV-Risk 08/27/2021 09/01/2021 09/12/2021 1:21 AM EDT Assessment Noted Time PHQ-2 Depression Total Score: 0 02/06/20 20 3:42 PM EDT documented as of this encounter Care Teams Movie Writer Relationship Specialty Start Date End Date Arturo Iverson MD [address] [place] [address], [address] [place] [address] [email or web address] PCP - General Internal Medicine 12/18/20 Arturo Iverson MD [address] [place] [address], [address] [place] [address] [email or web address] Insurance Assigned Provider 09/23/23 documented as of this encounter Additional Source Comments The information contained in this document represents components of the legal health record. It is not the complete legal health record.[facility]
--- OUTSIDE RECORDS SUMMARY | 2025-03-18 13:51 | XMS_ITS | Encounter Summary ---
Author Organization [facility] Address [address] [place] [address] Phone Care Team Providers Care Bench Chemist Name Role Phone Arturo Iverson MD Unavailable [phone] Arturo Iverson MD Primary Care Provider [phone] Encounter Details Date Type Department Care Team (Late st Contact Info) Description 12/24/2020 Procedure Pass [address] [place] [address] Social History Tobacco Use Types Packs/Day Years [...] Description 06/02/2025 1:00 PM EST Office Visit [address] [place] [address] Arturo Iverson MD 22 [facility], [address] [place] [address] 07/04/2025 1:45 PM EST Office Visit [facility] 10 [place] [address] Unknown, Unknown, Nola Hughes, ADALI [address] [place] [address] 07/10/2025 2:15 PM EST Office Visit [facility] [address] [place] [address] Angela Salcedo MD [address] [place] [address] Orthopedics & Sports Medicine, [place], [place] [phone] 12/08/2025 1:00 PM EDT Office Visit [facility] [address] [place] [address] 3rd Floor, [address] [place] [address] Enrique Garcia DO [address] [place] [address] [place] [address] [email or web address] documented as of this encounter Visit Diagnoses Not on filedocumented in this encounter Additional Health Concerns Infection Onset Date Last Indicated Resolved Time CoV-Risk 08/27/2021 09/01/2021 09/12/2021 1:21 AM EDT Assessment Noted Time PHQ-2 Depression Total Score: 0 02/06/20 3:42 PM EDT documented as of this encounter Care Teams Bench Chemist Relationship Specialty Start Date End Date Arturo Iverson MD [address] [place] [address], [address] [place] [address] PCP - General Internal Medicine 12/18/20 Arturo Iverson MD [address] [place] [address], [address] [place] [address] [email or web address] Insurance Assigned Provider 09/23/23 documented as of this encounter Additional Source Comments The information contained in this document represents components of the legal health record. It is not the complete legal health record.[facility]
--- OUTSIDE RECORDS SUMMARY | 2025-03-18 13:51 | XMS_ITS | Encounter Summary ---
Author Organization [facility] Address [address] [facility] [address] [place] [address] Phone Care Team Providers Care Aircraft Launch And Recovery Technician Name Role Phone Arturo Iverson MD Primary Care Provider [phone] Arturo Iverson MD Unavailable Arturo Iverson MD Primary Care Provider [phone] Reason for Visit * Reason Onset Date Comments Medication Question 05/22/2017 Encounter Details Date Type Department Care Team (Late st Contact Info) Description 05/22/2017 Telephone [employer] [address] [address] Arturo Iverson MD [address] [place] [address], [address] [place] [address] [email or web address] Medication Question Social History Tobacco Use Types Packs/Day Years Used Date Smoking Tobacco: Former Smokeless Tobacco: Never Comments: LIGHT SMOKER Alcohol [...] Progress Notes * Arturo Iverson MD - 05/23/2017 9:39 AM EST rx sent as reported in [facility] viewer. * Agata Caicedo MA - 05/22/2017 10:27 AM EST Fax received asking for clarification on the directions for Amlodipine. I checked [facility] viewer which stated script for Amlodipine was 5 mg, 1 tab BID. Please review to JT documented in this encounter Plan of Treatment Upcoming Encounters Date Type Department Care Team (Late st Contact Info) Description 06/02/2025 1:00 PM EST Office Visit [facility] Medicine [address] [place] [address] [place] [address] Arturo Iverson MD [address] [place] [address], [address] [place] [address] 07/04/2025 1:45 PM EST Office Visit [facility] 10 [place] [address] Unknown, Unknown, Nola Hughes, ADALI [address] [place] [address] 07/10/2025 2:15 PM EST Office Visit [facility] Orthopedics & Sports Medicine [address] [place] [address] Angela Salcedo MD [address] [place] [address] Orthopedics & Sports Medicine, [facility] [place] [address] 12/08/2025 1:00 PM EDT Office Visit [facility] [address] [place] [address] 3rd Floor, [address] [place] [address] Enrique Garcia, [address] [facility] [address] [place] [address] [email or web address] documented as of this encounter Visit Diagnoses Not on filedocumented in this encounter Additional Health Concerns Infection Onset Date Last Indicated Resolved Time CoV-Risk 08/27/2021 09/01/2021 09/12/2021 1:21 AM EDT documented as of this encounter Care Teams Aircraft Launch And Recovery Technician Relationship Specialty Start Date End Date Arturo Iverson MD [address] [facility], [address] [place] [address] [email or web address] PCP - General 04/14/17 12/17/20 Arturo Ivesron MD 22 [facility], [address] [place] [address] [email or web address] PCP - General Internal Medicine 12/18/20 Arturo Iverson MD 22 [facility], [address] [place] [address] [email or web address] Insurance Assigned Provider 09/23/23 documented as of this encounter Additional Source Comments The information contained in this document represents components of the legal health record. It is not the complete legal health record.[facility]
--- OUTSIDE RECORDS SUMMARY | 2025-03-18 13:51 | XMS_ITS | Encounter Summary ---
Author Organization [facility] Address [address] [place] [address] Phone Care Team Providers Care Form Setter/Driver Name Role Phone Arturo Iverson MD Unavailable [phone] Arturo Iverson MD Primary Care Provider [phone] Encounter Details Date Type Department Care Team (Late st Contact Info) Description 05/24/2024 Procedure Pass [facility], Ct Scan - [address] [address] Social History Tobacco Use Types Packs/Day Years [...] 1:17 PM EST Sarah Sullivan, RUBEN * Sanders Suicide Severity Rating Scale (Screener/Recent Self-Report) Question [...] Description 06/02/2025 1:00 PM EST Office Visit [facility] [address] [place] [address] Arturo Iverson MD [address] [place] [address], [address] [place] [address] 07/04/2025 1:45 PM EST Office Visit [facility] [address] [place] [address] Unknown, Unknown, Nola Hughes, NURSE EXECUTIVE [address] [place] [address] 07/10/2025 2:15 PM EST Office Visit [facility] Orthopedics & Sports Medicine 4 [place] [address] Angela Salcedo MD [address] [place] [address] Orthopedics & Sports Medicine, [facility] [place] [address] 12/08/2025 1:00 PM EDT Office Visit [facility] [address] [facility] 3rd Floor, [address] [place] [address] Enrique Garcia DO [address] [facility] [address] [place] [address] documented as of this encounter Visit Diagnoses Not on filedocumented in this encounter Additional Health Concerns Assessment Noted Time PHQ-2 Depression Total Score: 0 05/29/20 23 12:33 PM EST documented as of this encounter Care Teams Form Setter/Driver Relationship Specialty Start Date End Date Arturo Iverson MD [address] [place] [address], [address] [place] [address] PCP - General Internal Medicine 12/18/20 Arturo Iverson MD [address] [place] [address], [address] [place] [address] Insurance Assigned Provider 09/23/23 documented as of this encounter Additional Source Comments The information contained in this document represents components of the legal health record. It is not the complete legal health record.[facility]
--- OUTSIDE RECORDS SUMMARY | 2025-03-18 13:51 | XMS_ITS | Encounter Summary ---
Author Organization [facility], Address [address] [place] [address] Phone Care Team Providers Care Hydraulic And Plumbing Installer Name Role Phone Arturo Iverson MD Primary Care Provider [phone] Reason for Referral * Imaging (Routine) - Closed Specialty Diagnoses / Procedures Referred By Rohit alexis Referred To Contact Diagnoses Flank pain Procedures Ultrasound renal complete Darshan Tyson MD [facility] [address] [place] [address] Referral ID Status Reason Start Date Expiration Date Visits Re quested Visits Authorized [id number] Closed 06/09/2020 12/06/2020 1 1 Encounter Details Date Type Department Care Team (Late Contact Info) Description 06/05/2020 Orders Only [facility] [address] [place] [phone] Darshan Tyson MD Flank pain (Primary Dx); Chronic kidney disease, stage 3a Social History Tobacco Use Types Packs/Day Years [...] Visit [facility] - Edmar MALDONADO [address] [place] [phone] Ty Lyon MD [address] [facility] [place] [phone] documented as of this encounter Results * Ultrasound renal complete (06/24/2020 1:22 PM EST) Anatomical Region Laterality Modality Body Ultrasound us Darshan Tyson MD IMG US PROCEDURES Final Result documented in this encounter Visit Diagnoses Diagnosis Flank pain- Primary Chronic kidney disease, stage 3a documented in this encounter Care Teams Hydraulic And Plumbing Installer Relationship Specialty Start Date End Date Arturo Iverson MD 22 [facility], [address] [place] [address] PCP - General 04/23/19 documented as of this encounter
--- OUTSIDE RECORDS SUMMARY | 2025-03-18 13:52 | XMS_ITS | Encounter Summary ---
Author Organization [facility] Address [address] [place] [address] Phone Care Team Providers Care Jewelry Bench Molder Name Role Phone Arturo Iverson MD Unavailable [phone] Arturo Iverson MD Primary Care Provider [phone] Encounter Details Date Type Department Care Team (Late st Contact Info) Description 11/30/2023 Procedure Pass [address] [address] Social History Tobacco Use Types Packs/Day Years [...] Description 06/02/2025 1:00 PM EST Office Visit [facility] [address] [place] [address] [place] [address] Arturo Iverson MD 22 [facility], [address] [place] [address] 07/04/2025 1:45 PM EST Office Visit [facility] [address] [place] [address] Unknown, Unknown, Nola Hughes, ADALI [address] [place] [address] 07/10/2025 2:15 PM EST Office Visit [facility] Orthopedics & Sports Medicine [address] [place] [address] Angela Salcedo MD [address] [place] [address] Orthopedics & Sports Medicine, [facility] [place] [address] 12/08/2025 1:00 PM EDT Office Visit [facility] [address] [place] [address] 3rd Floor, [address] [place] [address] Enrique Garcia DO 22 [facility] [address] [place] [address] documented as of this encounter Visit Diagnoses Not on filedocumented in this encounter Additional Health Concerns Assessment Noted Time PHQ-2 Depression Total Score: 0 05/29/20 23 12:33 PM EST documented as of this encounter Care Teams Jewelry Bench Molder Relationship Specialty Start Date End Date Arturo Iverson MD [facility], [address] [place] [address] [email or web address] PCP - General Internal Medicine 12/18/20 Arturo Iverson MD [address] [facility], [address] [place] [address] [email or web address] Insurance Assigned Provider 09/23/23 documented as of this encounter Additional Source Comments The information contained in this document represents components of the legal health record. It is not the complete legal health record.[facility]
--- OUTSIDE RECORDS SUMMARY | 2025-03-18 13:52 | XMS_ITS | Encounter Summary ---
Author Organization [facility] Address [address] [facility] [address] [place] [address] Phone Care Team Providers Care Analytical Lead Name Role Phone Arturo Iverson MD Primary Care Provider [phone] Arturo Iverson MD Unavailable [phone] Arturo Iverson MD Primary Care Provider [phone] Reason for Referral * MRI/CAT Scan - Closed Specialty Diagnoses / Procedures Referred By Rohit alexis Referred To Contact Radiology Diagnoses Degeneration, intervertebral disc, lumbar Procedures MRI Lumbar Spine Mark Anthony Rondon MD Phone: tel: fax: [email or web address] Referral ID Status Reason Start Date Expiration Date Visits Re quested Visits Authorized [id number] Closed 06/03/2019 06/02/2020 1 1 Encounter Details Date Type Department Care Team (Latest Contact Info) Description 06/03/2019 Transcribe Orders Virtual Department 30 [place] [address] Mark Anthony Rondon MD 6 [place] [phone] [email or web address] Degeneration, intervertebral disc, lumbar (Primary Dx) Social History Tobacco Use Types [...] Description 06/02/2025 1:00 PM EST Office Visit [facility] [address] [place] [address] [place] [address] Arturo Iverson MD [address] [place] [address], [address] [place] [address] 07/04/2025 1:45 PM EST Office Visit [facility] [address] [place] [address] Unknown, Unknown, Nola Hughes, ADALI [address] [place] [address] 07/10/2025 2:15 PM EST Office Visit [facility] Orthopedics & Sports Medicine [address] [place] [address] Angela Salcedo MD [address] [place] [address] Orthopedics & Sports Medicine, [facility] [place] [address] 12/08/2025 1:00 PM EDT Office Visit [facility] [address] [place] [address] 3rd Floor, [address] [place] [address] Enrique Garcia DO [address] [place] [address] [address] [place] [address] [email or web address] documented as of this encounter Results * MRI LUMBAR SPINE (NEURO) WITHOUT CONTRAST (06/11/2019 1:45 PM EST) Anatomical Region Laterality Modality L-spine Magnetic Resonan ce 06/11/2019 2:08 PM EST Impressions 06/11/2019 2:30 PM EST Equivocal slight progression of lateral recess stenosis at L4-5 without significant change in recess stenosis at L1-2, L2-3, or L3-4 since the prior study of 2015. 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 Multilevel disc bulging as above, with slight progression at T12-L1. No acute disc protrusion identified. Small lesion in the upper pole of the right kidney, possibly representing a complex cyst, cortical calcification, or possible mass not identified on intervening CT. Sonographic correlation could be considered. Additional numerous renal cysts are again demonstrated. POS - [id number] Narrative 06/11/2019 2:30 PM EST TECHNIQUE: Exam performed on a 1.5 Jamilah high-field MRI scanner. Sagittal T1, T2 and STIR, axial T1 and T2 sequences were obtained. FINDINGS: Comparison is made with the prior MR of 06/01/2016 and radiographs of 06/09/2017. T11-12: There is a mild left paramedian bulge without focal disc protrusion, central canal stenosis, or significant neural foraminal compromise. T12-L1: Slight progression of chronic bilateral paramedian disc bulges without focal disc protrusion, central canal stenosis, or significant neural foraminal compromise. L1-2: Stable mild broad-based disc bulge flattening the ventral aspect of the thecal sac without acute disc protrusion or significant canal stenosis. Mild bilateral recess stenosis due to hypertrophic facet arthropathy again seen without significant neural foraminal compromise. L2-L3: There is a chronic moderate-sized broad-based disc bulge which is essentially unchanged without acute disc protrusion or neural foraminal compromise. Stable mild bilateral recess stenosis due to degenerative facet arthropathy no significant central canal stenosis. L3-L4: There is a chronic very minimal anterolisthesis of the L3 body, overall unchanged. There is chronic moderately severe central canal and bilateral recess stenosis due to disc bulge, facet osteoarthropathy, and mild ligamentum flavum hypertrophy. There is chronic bilateral neural foraminal narrowing due to disc bulge without overt mass-effect upon the exiting L3 nerve roots. L4-L5: There is a grossly stable stable 3-4 mm anterolisthesis of the L4 stable moderately severe central canal stenosis with perhaps minimal progression of lateral recess stenosis due to facet osteoarthropathy and mild ligamentum flavum hypertrophy. Body. There is stable broad-based disc bulge extending into the right neural foramen without mass-effect upon the exiting L3 nerve root. No acute disc protrusion. L5-S1: No focal disc protrusion, central canal stenosis, or neural foraminal compromise. No significant abnormality of vertebral body marrow signal is noted. Visualized portions of the tip of the conus are unremarkable. No paraspinal soft tissue mass apparent. Innumerable bilateral renal cortical cysts are again seen with an approximate 10 mm rounded lesion of T2 hypointense and mildly T1 hypointense signal in the upper pole of the right kidney possibly representing a complex cyst not apparent on intervening CT of 02/10/2017. This appears to represent a slight change from 2016. Procedure Note Luther Lloyd MD - 06/11/2019 TECHNIQUE: Exam performed on a 1.5 Jamilah high-field MRI scanner. SagittalT1, T2 and STIR, axial T1 and T2 sequences were obtained. FINDINGS: Comparison is made with the prior MR of 06/01/2016 and radiographs of06/09/2017. T11-12: There is a mild left paramedian bulge without focal discprotrusion, central canal stenosis, or significant neural foraminalcompromise. T12-L1: Slight progression of chronic bilateral paramedian disc bulgeswithout focal disc protrusion, central canal stenosis, or significantneural foraminal compromise. L1-2: Stable mild broad-based disc bulge flattening the ventral aspect ofthe thecal sac without acute disc protrusion or significant canalstenosis. Mild bilateral recess stenosis due to hypertrophic facetarthropathy again seen without significant neural foraminal compromise. L2-L3: There is a chronic moderate-sized broad-based disc bulge which isessentially unchanged without acute disc protrusion or neural foraminalcompromise. Stable mild bilateral recess stenosis due to degenerativefacet arthropathy no significant central canal stenosis. L3-L4: There is a chronic very minimal anterolisthesis of the L3 body,overall unchanged. There is chronic moderately severe central canal andbilateral recess stenosis due to disc bulge, facet osteoarthropathy, andmild ligamentum flavum hypertrophy. There is chronic bilateral neuralforaminal narrowing due to disc bulge without overt mass-effect upon theexiting L3 nerve roots. L4-L5: There is a grossly stable stable 3-4 mm anterolisthesis of the [id number] moderately severe central canal stenosis with perhaps minimalprogression of lateral recess stenosis due to facet osteoarthropathy andmild ligamentum flavum hypertrophy. Body. There is stable broad-baseddisc bulge extending into the right neural foramen without mass-effectupon the exiting L3 nerve root. No acute disc protrusion. L5-S1: No focal disc protrusion, central canal stenosis, or neuralforaminal compromise. No significant abnormality of vertebral body marrow signal is noted.Visualized portions of the tip of the conus are unremarkable. Noparaspinal soft tissue mass apparent. Innumerable bilateral renalcortical cysts are again seen with an approximate 10 mm rounded lesion ofT2 hypointense and mildly T1 hypointense signal in the upper pole of theright kidney possibly representing a complex cyst not apparent onintervening CT of 02/10/2017. This appears to represent a slight changefrom 2015. IMPRESSION: Equivocal slight progression of lateral recess stenosis at L4-5 withoutsignificant change in recess stenosis at L1-2, L2-3, or L3-4 since theprior study of 2015. Stable grade 1 L3-4 and L4-5 spondylolistheses andmoderately severe central canal stenosis. Multilevel disc bulging asabove, with slight progression at T12-L1. No acute disc protrusionidentified. Small lesion in the upper pole of the right kidney, possibly representinga complex cyst, cortical calcification, or possible mass not identified onintervening CT. Sonographic correlation could be considered. Additionalnumerous renal cysts are again demonstrated. POS - [id number] us Mark Anthony Byung-Mo Park MD IMG MR XSPECIALTY Final Result documented in this encounter Visit Diagnoses Diagnosis Degeneration, intervertebral disc, lumbar- Primary Degeneration of lumbar or lumbosacral intervertebral disc Degeneration, intervertebral disc, lumbar Degeneration of lumbar or lumbosacral intervertebral disc documented in this encounter Additional Health Concerns Infection Onset Date Last Indicated Resolved Time CoV-Risk 08/27/2021 09/01/2021 09/12/2021 1:21 AM EDT Assessment Noted Time PHQ-2 Depression Total Score: 0 09/07/19 11:38 AM EDT documented as of this encounter Care Teams Analytical Lead Relationship Specialty Start Date End Date Arturo Iverson MD [address] [facility], [address] [place] [address] [email or web address] PCP - General 04/14/17 12/17/20 Arturo Iverson MD [address] [facility], [address] [place] [address] PCP - General Internal Medicine 12/18/20 Arturo Iverson MD [address] [facility], [address] [place] [address] [email or web address] Insurance Assigned Provider 09/23/23 documented as of this encounter Additional Source Comments The information contained in this document represents components of the legal health record. It is not the complete legal health record.[facility]
--- OUTSIDE RECORDS SUMMARY | 2025-03-18 13:52 | XMS_ITS | Encounter Summary ---
Author Organization [facility] Address [address] [place] [address] Phone Care Team Providers Care Flask Fitter Name Role Phone Arturo Iverson MD Unavailable [phone] Arturo Iverson MD Primary Care Provider [phone] Encounter Details Date Type Department Care Team (Latest Contact Info) Description 10/09/2023 Transcribe Orders Virtual Department 30 [place] [address] Mark Anthony Rondon MD [address] [place] [phone] [email or web address] Sacrococcygeal disorders, not elsewhere classified (Primary Dx) Social History Tobacco Use Types [...] Description 06/02/2025 1:00 PM EST Office Visit [address] [place] [address] Arturo Iverson MD [address] [place] [address], [address] [place] [address] 07/04/2025 1:45 PM EST Office Visit [facility] 10 [place] [address] Unknown, Unknown, MD Franks, Nola Kahn, ADALI 10 [place] [address] 07/10/2025 2:15 PM EST Office Visit [facility] Orthopedics & Sports Medicine [address] [place] [phone] Angela Salcedo MD [address] [place] [address] [facility] [address] 12/08/2025 1:00 PM EDT Office Visit [facility] [address] [place] [address] 3rd Floor, [address] [place] [address] Enrique Garcia DO 22 [facility] [address] [place] [address] documented as of this encounter Results * XR PELVIS 1-2 VIEW (10/10/2023 1:20 PM EDT) Anatomical Region Laterality Modality Pelvis Computed Radiogr aphy 10/12/2023 1:50 AM EDT Impressions 10/12/2023 1:51 AM EDT Moderate hip osteoarthritis. Constipation. Narrative 10/12/2023 1:51 AM EDT XR PELVIS 1-2 VIEW Referring clinician's provided indication for this examination in [facility]: Outside Radiology Order; sacrococcygeal disorder REQUESTED INDICATION: Outside Radiology Order; sacrococcygeal disorder COMPARISON: XR HIP 2 VW LEFT PLUS PELVIS FINDINGS: PELVIS: Pelvic ring intact. No displaced fracture. Degenerative changes of the lower lumbar spine, sacroiliac joints, and pubic symphysis. Constipation. RIGHT HIP: Moderate hip joint space narrowing with subchondral sclerosis and bony proliferative change. LEFT HIP: Moderate hip joint space narrowing with subchondral sclerosis and bony proliferative change. Procedure Note Crys Coles MD - 10/12/2023 XR PELVIS 1-2 VIEW Referring clinician's provided indication for this examination in [facility]:Outside Radiology Order; sacrococcygeal disorder REQUESTED INDICATION: Outside Radiology Order; sacrococcygeal disorder COMPARISON: XR HIP 2 VW LEFT PLUS PELVIS FINDINGS: PELVIS: Pelvic ring intact. No displaced fracture. Degenerative changes ofthe lower lumbar spine, sacroiliac joints, and pubic symphysis.Constipation. RIGHT HIP: Moderate hip joint space narrowing with subchondral sclerosisand bony proliferative change. LEFT HIP: Moderate hip joint space narrowing with subchondral sclerosisand bony proliferative change. IMPRESSION: Moderate hip osteoarthritis. Constipation. Mark Anthony Rondon MD IMG XR PELVIS Final R esult documented in this encounter Visit Diagnoses Diagnosis Sacrococcygeal disorders, not elsewhere classified- Primary Sacrococcygeal disorders, not elsewhere classified documented in this encounter Additional Health Concerns Assessment Noted Time PHQ-2 Depression Total Score: 0 05/29/20 23 12:33 PM EST documented as of this encounter Care Teams Flask Fitter Relationship Specialty Start Date End Date Arturo Iverson MD [address] [facility], [address] [place] [address] PCP - General Internal Medicine 12/18/20 Arturo Iverson MD 22 [facility], [address] [place] [address] [email or web address] Insurance Assigned Provider 09/23/23 documented as of this encounter Additional Source Comments The information contained in this document represents components of the legal health record. It is not the complete legal health record.[facility]
--- OUTSIDE RECORDS SUMMARY | 2025-03-18 13:52 | XMS_ITS | Encounter Summary ---
Author Organization [facility] Address [address] [facility] [address] [place] [address] Phone Care Team Providers Care Search Strategist Name Role Phone Arturo Iverson MD Unavailable [phone] Arturo Iverson MD Primary Care Provider [phone] Encounter Details Date Type Department Care Team (Latest Contact Info) Description 09/16/2021 Transcribe Orders [facility] [address] [place] [address] Darshan Tyson MD [address] [place] [address], 3 [place] [address] [email or web address] Stage 2 chronic kidney disease (Primary Dx) Social History [...] Description 06/02/2025 1:00 PM EST Office Visit [address] [place] [address] Arturo Iverson MD [address] [place] [address], [address] [place] [address] 07/04/2025 1:45 PM EST Office Visit [facility] 10 [place] [address] Unknown, Unknown, Nola Hughes, ADALI 10 [place] [address] 07/10/2025 2:15 PM EST Office Visit [facility]ics & Sports Medicine [address] [place] [address] Angela Salcedo MD [address] [place] [address] Orthopedics & Sports Medicine, [facility] [place] [address] 12/08/2025 1:00 PM EDT Office Visit [facility] [address] [place] [address] 3rd Floor, [address] [place] [address] Enrique Garcia DO [address] [place] [address] [place] [address] [email or web address] documented as of this encounter Results * 25-OH vitamin D (01/27/2022 7:47 AM EDT) 25 OH VIT D (TOTAL) 50 30 - 60 ng/mL [facility] Blood 01/27/2022 7:47 AM EDT 01/27/2022 7:53 AM EDT us Darshan Tyson MD LAB BLOOD ORDERABLES Final Re sult [address] [address] * Parathyroid hormone (PTH) (01/27/2022 7:47 AM EDT) PARATHYROID HORMONE 60 15 - 65 pg/mL [facility] Blood 01/27/2022 7:47 AM EDT 01/27/2022 7:54 AM EDT us Darshan Tyson MD LAB BLOOD ORDERABLES Final Re sult Performing Organization Address City/[facility]/ZIP Co de Phone Number [address] [address] * CBC (01/27/2022 7:47 AM EDT) WBC 7.23 4.00 - 11.00 K/uL [facility] RBC 4.42 3.72 - 5.30 M/uL [facility] HGB 13.5 11.4 - 15.9 g/dL [facility] HCT 40.8 34.2 - 46.8 % [facility] PLT 310 140 - 430 K/uL [facility] MCV 92.3 78.0 - 97.0 fL [facility] MCH 30.5 25.0 - 33.0 pg [facility] MCHC 33.1 32.0 - 36.0 g/dL [facility] RDW 13.5 11.0 - 16.0 % [facility] MPV 11.5 8.4 - 12.8 fl [facility] NRBC 0.00 0 /100 WBCs [facility] ABSOLUTE NRBC 0.00 0 K/uL [facility] Blood 01/27/2022 7:47 AM EDT 01/27/2022 7:53 AM EDT us Darshan Tyson MD LAB BLOOD ORDERABLES Final Re sult Performing Organization Address City/[facility]/ZIP Co de Phone Number [address] [address] * (ABNORMAL) Renal panel (01/27/2022 7:47 AM EDT) SODIUM 142 133 - 146 mmol/L [facility] POTASSIUM 3.6 3.3 - 5.1 mmol/L [facility] CHLORIDE 103 96 - 108 mmol/L [facility] CO2 30 21 - 35 mmol/L [facility] GLUCOSE 94 70 - 99 mg/dL [facility] BUN 26(H) 6 - 19 mg/dL [facility] CREATININE 1.50 0.5 - 1.5 mg/dL [facility] CALCIUM 9.7 8.4 - 10.3 mg/dL [facility] PHOSPHORUS 3.0 2.7 - 4.5 mg/dL [facility] ALBUMIN 4.4 3.9 - 4.8 g/dL [facility] EGFR 37(L) >59 mL/min/1.7 3m2 [facility] Comment:Estimated glomerular filtration rate calculated using the CKD-EPI refit equation. ANION GAP 13 10 - 20 mmol/L [facility] Blood 01/27/2022 7:47 AM EDT 01/27/2022 7:53 AM EDT us Darshan Tyson MD LAB BLOOD ORDERABLES Final Re sult [facility] [address] [place] [address] * (ABNORMAL) URINALYSIS WITH SEDIMENT (09/29/2021 10:15 AM EDT) WBC 0-4(A) NONE SEEN /hpf [facility] RBC 0-2(A) NONE SEEN /hpf [facility] URINE EPITHELIAL 5-10(A) NONE SEEN [facility] MUCUS Trace(A) NONE SEEN /hpf [facility] BACTERIA Trace(A) NONE SEEN /hpf [facility] COLOR Yellow Yellow [facility] CLARITY Clear [facility] GLUCOSE Negative Negative [facility] BILI Negative Negative [facility] KETONES Negative Negative [facility] SPECIFIC GRAVITY <1.005 1.005 - 1.030 [facility] BLOOD Negative Negative [facility] PH 6.0 5.0 - 8.0 [facility] Protein-UA Negative Negative [facility] NITRITE Negative Negative [facility] Leukocyte esterase, ur Negative Negative [facility] Urine (Urine) 09/29/2021 10: 15 AM EDT 09/29/2021 10:38 AM EDT us Darshan Tyson MD URINE ORDERABLES Final Result Performing Organization Address City/[facility]/ZIP Co de Phone Number [address] [address] * (ABNORMAL) Microalbumin/creatinine ratio, random urine (09/29/2021 10:15 AM EDT) URINE MICROALBUMIN 9.6(H) 0 - 2.3 mg/dL [facility] URINE CREATININE 25 mg/dL [facility] MICROALB/CRE RATIO 384.0(H) 0 - 20 mg/g Cre [facility] Urine (Urine) 09/29/2021 10: 15 AM EDT 09/29/2021 10:38 AM EDT us Darshan Tyson MD URINE ORDERABLES Final Result Performing Organization Address [facility]/ZIP Co de Phone Number [address] [address] * 25-OH vitamin D (09/16/2021 2:04 PM EDT) 25 OH VIT D (TOTAL) 52 30 - 60 ng/mL [facility] Blood 09/16/2021 2:04 PM EDT 09/16/2021 2:08 PM EDT us Darshan Tyson MD LAB BLOOD ORDERABLES Final Re sult Performing Organization Address [facility]/ZIP Co de Phone Number [address] [address] * (ABNORMAL) Parathyroid hormone (PTH) (09/16/2021 2:04 PM EDT) PARATHYROID HORMONE 97(H) 15 - 65 pg/mL [facility] Blood 09/16/2021 2:04 PM EDT 09/16/2021 2:08 PM EDT us Darshan Tyson MD LAB BLOOD ORDERABLES Final Re sult [address] [address] * (ABNORMAL) Microalbumin/creatinine ratio, random urine (09/16/2021 2:04 PM EDT) URINE MICROALBUMIN 11.5(H) 0 - 2.3 mg/dL [facility] URINE CREATININE 38 mg/dL [facility] MICROALB/CRE RATIO 302.6(H) 0 - 20 mg/g Cre [facility] Urine (Urine) 09/16/2021 2:0 4 PM EDT 09/16/2021 2:27 PM EDT Darshan Tyson MD URINE ORDERABLES Final Result Performing Organization Address City/[facility]/ZIP Co de Phone Number [address] [address] * (ABNORMAL) CBC (09/16/2021 2:04 PM EDT) WBC 11.15(H) 4.00 - 11.00 K/uL [facility] RBC 4.80 3.72 - 5.30 M/uL [facility] HGB 14.3 11.4 - 15.9 g/dL [facility] HCT 43.8 34.2 - 46.8 % [facility] PLT 447(H) 140 - 430 K/uL [facility] MCV 91.3 78.0 - 97.0 fL [facility] MCH 29.8 25.0 - 33.0 pg [facility] MCHC 32.6 32.0 - 36.0 g/dL [facility] RDW 14.3 11.0 - 16.0 % [facility] MPV 10.7 8.4 - 12.8 fl [facility] NRBC 0.00 0 /100 WBCs [facility] ABSOLUTE NRBC 0.00 0 K/uL [facility] Blood 09/16/2021 2:04 PM EDT 09/16/2021 2:08 PM EDT Darshan Tyson MD LAB BLOOD ORDERABLES Final Re sult Performing Organization Address [facility]/ZIP Co de Phone Number [address] [address] * (ABNORMAL) Renal panel (09/16/2021 2:04 PM EDT) SODIUM 139 133 - 146 mmol/L [facility] POTASSIUM 3.7 3.3 - 5.1 mmol/L [facility] CHLORIDE 101 96 - 108 mmol/L [facility] CO2 26 21 - 35 mmol/L [facility] GLUCOSE 77 70 - 99 mg/dL [facility] BUN 26(H) 6 - 19 mg/dL [facility] CREATININE 1.40 0.5 - 1.5 mg/dL [facility] CALCIUM 9.7 8.4 - 10.3 mg/dL [facility] PHOSPHORUS 3.8 2.7 - 4.5 mg/dL [facility] ALBUMIN 4.7 3.9 - 4.8 g/dL [facility] EGFR 40(L) >59 mL/min/1.7 3m2 [facility] Comment:Estimated glomerular filtration rate calculated using the CKD-EPI refit equation. ANION GAP 16 10 - 20 mmol/L [facility] Blood 09/16/2021 2:04 PM EDT 09/16/2021 2:08 PM EDT Darshan Tyson MD LAB BLOOD ORDERABLES Final Re sult Performing Organization Address [facility] Co de Phone Number [address] [address] * Urinalysis w/reflex Urine Culture (09/16/2021 2:04 PM EDT) COLOR Yellow Yellow [facility] CLARITY Clear [facility] GLUCOSE Negative Negative [facility] BILI Negative Negative [facility] KETONES Negative Negative [facility] SPECIFIC GRAVITY <1.005 1.005 - 1.030 [facility] BLOOD Negative Negative [facility] PH 6.0 5.0 - 8.0 [facility] Protein-UA Negative Negative [facility] NITRITE Negative Negative [facility] Leukocyte esterase, ur Negative Negative [facility] Urine (Urine) 09/16/2021 2:0 4 PM EDT 09/16/2021 2:27 PM EDT us Darshan Tyson MD URINE ORDERABLES Final Result [facility] [address] [place] [address] documented in this encounter Visit Diagnoses Diagnosis Stage 2 chronic kidney disease- Primary documented in this encounter Additional Health Concerns Assessment Noted Time PHQ-2 Depression Total Score: 0 02/06/20 20 3:42 PM EDT documented as of this encounter Care Teams Search Strategist Relationship Specialty Start Date End Date Arturo Iverson MD [address] [address] [email or web address] PCP - General Internal Medicine 12/18/20 Arturo Iverson MD [address] [place] [address], [address] [address] [email or web address] Insurance Assigned Provider 09/23/23 documented as of this encounter Additional Source Comments The information contained in this document represents components of the legal health record. It is not the complete legal health record.[facility]
--- OUTSIDE RECORDS SUMMARY | 2025-03-18 13:52 | XMS_ITS | Encounter Summary ---
Author Organization [facility] Address [address] [place] [address] Phone Care Team Providers Care Roofer Helper Name Role Phone Arturo Iverson MD Primary Care Provider [phone] Arturo Iverson MD Unavailable [phone] Arturo Iverson MD Primary Care Provider [phone] Encounter Details Date Type Department Care Team (Late st Contact Info) Description 10/17/2017 Procedure Pass [facility], Ct Scan - [address] [address] Social History Tobacco Use Types Packs/Day Years [...] Description 06/02/2025 1:00 PM EST Office Visit [facility] Medicine [address] [place] [address] [place] [address] Arturo Iverson MD [address] [facility], [address] [place] [address] 07/04/2025 1:45 PM EST Office Visit [facility] 10 [place] [address] Unknown, Unknown, Nola Hughes, ADALI 10 [place] [address] 07/10/2025 2:15 PM EST Office Visit [facility] Orthopedics & Sports Medicine [address] [place] [address] Angela Salcedo MD [address] [place] [address] Orthopedics & Sports Medicine, [place], [place] [address] 12/08/2025 1:00 PM EDT Office Visit [facility] [address] [place] [address] 3rd Floor, [address] [place] [address] Enrique Garcia DO [address] [facility] [address] [place] [address] documented as of this encounter Visit Diagnoses Not on filedocumented in this encounter Additional Health Concerns Infection Onset Date Last Indicated Resolved Time CoV-Risk 08/27/2021 09/01/2021 09/12/2021 1:21 AM EDT documented as of this encounter Care Teams Roofer Helper Relationship Specialty Start Date End Date Arturo Iverson MD [address] [place] [address], [address] [place] [address] PCP - General 04/14/17 12/17/20 Arturo Iverson MD [address] [place] [address], [address] [place] [address] PCP - General Internal Medicine 12/18/20 Arturo Iverson MD [address] [place] [address], [address] [place] [address] [email or web address] Insurance Assigned Provider 09/23/23 documented as of this encounter Additional Source Comments The information contained in this document represents components of the legal health record. It is not the complete legal health record.[facility]
--- OUTSIDE RECORDS SUMMARY | 2025-03-18 13:52 | XMS_ITS | Encounter Summary ---
Author Organization [facility] Address [address] [place] [address] Phone Care Team Providers Care Business Broker Name Role Phone Arturo Iverson MD Unavailable [phone] Arturo Iverson MD Primary Care Provider [phone] Encounter Details Date Type Department Care Team (Late st Contact Info) Description 11/30/2023 Procedure Pass [address] [address] Social History Tobacco Use Types Packs/Day Years [...] 06/02/2025 1:00 PM EST Office Visit [facility] [address] [place] [address] [place] [address] Arturo Iverson MD [address] [facility] [place] [address] 07/04/2025 1:45 PM EST Office Visit [facility] [address] [place] [address] Unknown, Unknown, Nola Hughes, ADALI 10 [place] [address] 07/10/2025 2:15 PM EST Office Visit [facility] Orthopedics & Sports Medicine [address] [place] [address] Angela Salcedo MD [address] [place] [address] Orthopedics & Sports Medicine, [facility] [place] [address] 12/08/2025 1:00 PM EDT Office Visit [facility] [address] [place] [address] 3rd Floor, [address] [place] [address] Enrique Garcia DO [address] [facility] [address] [place] [address] documented as of this encounter Visit Diagnoses Not on filedocumented in this encounter Additional Health Concerns Assessment Noted Time PHQ-2 Depression Total Score: 0 05/29/20 23 12:33 PM EST documented as of this encounter Care Teams Business Broker Relationship Specialty Start Date End Date Arturo Iverson MD [facility], [address] [place] [address] [email or web address] PCP - General Internal Medicine 12/18/20 Arturo Iverson MD [address] [facility], [address] [place] [address] [email or web address] Insurance Assigned Provider 09/23/23 documented as of this encounter Additional Source Comments The information contained in this document represents components of the legal health record. It is not the complete legal health record.[facility]
--- OUTSIDE RECORDS SUMMARY | 2025-03-18 13:52 | XMS_ITS | Encounter Summary ---
Author Organization [facility] Address [address] [facility] [address] [place] [address] Phone Care Team Providers Care Power Systems Engineer Name Role Phone Arturo Iverson MD Primary Care Provider [phone] Arturo Iverson MD Unavailable [phone] Arturo Iverson MD Primary Care Provider [phone] Encounter Details Date Type Department Care Team (Late st Contact Info) Description 04/30/2020 Transcribe Orders [facility] [address] [place] [address] Arturo Iverson MD 22 [facility], [address] [place] [address] [email or web address] Social History Tobacco Use Types Packs/Day Years [...] Description 06/02/2025 1:00 PM EST Office Visit [facility] Medicine [address] [place] [address] [place] [address] Arturo Iverson MD [address] [place] [address], [address] [place] [address] 07/04/2025 1:45 PM EST Office Visit [facility] 10 [place] [address] Unknown, Unknown, Nola Hughes, ADALI 10 [place] [address] 07/10/2025 2:15 PM EST Office Visit [facility] Orthopedics & Sports Medicine [address] [place] [address] Angela Salcedo MD [address] [place] [address] Orthopedics & Sports Medicine, [place] [address] 12/08/2025 1:00 PM EDT Office Visit [facility] [address] [place] [address] 3rd Floor, [address] [place] [address] Enrique Garcia DO [address] [place] [address] documented as of this encounter Visit Diagnoses Not on filedocumented in this encounter Additional Health Concerns Infection Onset Date Last Indicated Resolved Time CoV-Risk 08/27/2021 09/01/2021 09/12/2021 1:21 AM EDT Assessment Noted Time PHQ-2 Depression Total Score: 0 02/06/20 20 3:42 PM EDT documented as of this encounter Care Teams Power Systems Engineer Relationship Specialty Start Date End Date Arturo Iverson MD [address] [place] [address] [address] [place] [address] [email or web address] PCP - General 04/14/17 12/17/20 Arturo Iverson MD 22 [facility], [address] [place] [address] [email or web address] PCP - General Internal Medicine 12/18/20 Arturo Iverson MD 22 [facility], [address] [place] [address] [email or web address] Insurance Assigned Provider 09/23/23 documented as of this encounter Additional Source Comments The information contained in this document represents components of the legal health record. It is not the complete legal health record.[facility]
--- OUTSIDE RECORDS SUMMARY | 2025-03-18 13:52 | XMS_ITS | Encounter Summary ---
Author Organization [facility] Address [address] [place] [address] Phone Care Team Providers Care Steward/Stewardess Tourist Class Name Role Phone Arturo Iverson MD Unavailable [phone] Arturo Iverson MD Primary Care Provider [phone] Encounter Details Date Type Department Care Team (Latest Contact Info) Description 07/12/2021 Transcribe Orders Virtual Department [address] [place] [address] Mark Anthony Rondon MD [address] [place] [phone] [email or web address] Spondylolisthesis, lumbar region (Primary Dx); Other spondylosis [...] 06/02/2025 1:00 PM EST Office Visit [facility] Medicine [address] [place] [address] [place] [address] Arturo Iverson MD [address] [facility] [place] [address] 07/04/2025 1:45 PM EST Office Visit [facility] 10 [place] [address] Unknown, Unknown, Nola Hughes, ADALI 10 [place], [place] [id number] 07/10/2025 2:15 PM EST Office Visit [facility] Orthopedics & Sports Medicine [address] [place] [address] Angela Salcedo MD [address] [place] [address] Orthopedics & Sports Medicine, [facility] [place] [address] 12/08/2025 1:00 PM EDT Office Visit [facility] [address] [place] [address] 3rd Floor, [address] [place] [address] Enrique Garcia DO [address] [facility] [address] [place] [address] documented as of this encounter Results * XR LUMBOSACRAL SPINE 2-3 VIEWS (07/19/2021 1:29 PM EST) Anatomical Region Laterality Modality L-spine Computed Radiogr aphy 07/19/2021 1:42 PM EST Impressions 07/19/2021 1:44 PM EST Stable grade 1 spondylolisthesis at L4-5 minor diffuse endplate spondylosis and mild L2-3 and L4-5 disc disease. No new pathology is apparent. POS [id number] Narrative 07/19/2021 1:44 PM EST 3 views Compare 07/10/2020 5-6 mm of anterolisthesis of L4 on L5 is unchanged. The other vertebral bodies are well-aligned. No compression fracture or other bony injury has become apparent No evidence of metastatic disease. Mild narrowing of the L2-3 and L4-5 discs is also stable as are small endplate spurs at all levels. Procedure Note Dmitry Mcdowell MD - 07/19/2021 3 views Compare 07/10/2020 5-6 mm of anterolisthesis of L4 on L5 is unchanged. The other vertebral bodies are well-aligned. No compression fracture or other bony injury has become apparent No evidence of metastatic disease. Mild narrowing of the L2-3 and L4-5 discs is also stable as are smallendplate spurs at all levels. IMPRESSION: Stable grade 1 spondylolisthesis at L4-5 minor diffuse endplatespondylosis and mild L2-3 and L4-5 disc disease. No new pathology isapparent. POS [id number] Mark Anthony Rondon MD IMG XR SPINE [...] documented as of this encounter Care Teams Steward/Stewardess Tourist Class Relationship Specialty Start Date End Date Arturo Iverson MD [address] [place] [address] [address] [place] [address] [email or web address] PCP - General Internal Medicine 12/18/20 Arturo Iverson MD [address] [facility], [address] [place] [address] [email or web address] Insurance Assigned Provider 09/23/23 documented as of this encounter Additional Source Comments The information contained in this document represents components of the legal health record. It is not the complete legal health record.[facility]
--- OUTSIDE RECORDS SUMMARY | 2025-03-18 13:52 | XMS_ITS | Encounter Summary ---
Author Organization [facility] Address [address] [facility] [address] [place] [address] Phone Care Team Providers Care Court Officer Name Role Phone Arturo Iverson MD Primary Care Provider [phone] Arturo Iverson MD Unavailable [phone] Arturo Iverson MD Primary Care Provider [phone] Encounter Details Date Type Department Care Team (Late st Contact Info) Description 11/13/2019 Transcribe Orders [facility] [address] [place] [address] Arturo Iverson MD 22 [facility], [address] [place] [address] [email or web address] Social History Tobacco Use Types Packs/Day Years [...] Description 06/02/2025 1:00 PM EST Office Visit [address] [place] [address] Arturo Iverson MD [address] [place] [address], [address] [place] [address] 07/04/2025 1:45 PM EST Office Visit [facility] Gastroenterology Clinic 10 [place] [address] Unknown, Unknown, Nola Hughes, ADALI 10 [place] [address] 07/10/2025 2:15 PM EST Office Visit [facility] Orthopedics & Sports Medicine [address] [place] [address] Angela Salcedo MD [address] [place] [address] Orthopedics & Sports Medicine, [facility] [address] 12/08/2025 1:00 PM EDT Office Visit [facility] [address] [place] [address] 3rd Floor, [address] [place] [address] Enrique Garcia DO [address] [place] [address] [place] [address] documented as of this encounter Visit Diagnoses Not on filedocumented in this encounter Additional Health Concerns Infection Onset Date Last Indicated Resolved Time CoV-Risk 08/27/2021 09/01/2021 09/12/2021 1:21 AM EDT Assessment Noted Time PHQ-2 Depression Total Score: 0 09/07/19 19 11:38 AM EDT documented as of this encounter Care Teams Court Officer Relationship Specialty Start Date End Date Arturo Iverson MD [address] [place] [address], [address] [place] [address] [email or web address] PCP - General 04/14/17 12/17/20 Arturo Iverson MD 22 [facility], [address] [place] [address] [email or web address] PCP - General Internal Medicine 12/18/20 Arturo Iverson MD 22 [facility] [place] [address] [email or web address] Insurance Assigned Provider 09/23/23 documented as of this encounter Additional Source Comments The information contained in this document represents components of the legal health record. It is not the complete legal health record.[facility]
--- OUTSIDE RECORDS SUMMARY | 2025-03-18 13:52 | XMS_ITS | Encounter Summary ---
Author Organization [facility] Address [address] [place] [address] Phone Care Team Providers Care Regulatory Intern Name Role Phone Arturo Iverson MD Primary Care Provider [phone] Arturo Iverson MD Unavailable [phone] Arturo Iverson MD Primary Care Provider [phone] Encounter Details Date Type Department Care Team (Late Contact Info) Description 10/13/2017 Procedure Pass [facility] Endoscopy Admitting Dept Virtual Department [address] [place] [address] Social History Tobacco Use Types Packs/Day Years [...] 06/02/2025 1:00 PM EST Office Visit [facility] [address] [place] [address] [place] [address] Arturo Iverson MD 22 [facility], [address] [place] [address] 07/04/2025 1:45 PM EST Office [facility] G[facility]ology [facility] 10 [place] [address] Unknown, Unknown, MD Franks, Nola Kahn, ADALI 10 [place] [address] 07/10/2025 2:15 PM EST Office Visit [facility] Orthopedics & Sports Medicine [address] [place] [address] Angela Salcedo MD [address] [place] [address] Orthopedics & Sports Medicine, [place], [place] [id number] 12/08/2025 1:00 PM EDT Office Visit [facility] [address] [place] [address] 3rd Floor, [address] [place] [address] Enrique Garcia DO 22 [facility] [address] [place] [address] documented as of this encounter Visit Diagnoses Not on filedocumented in this encounter Additional Health Concerns Infection Onset Date Last Indicated Resolved Time CoV-Risk 08/27/2021 09/01/2021 09/12/2021 1:21 AM EDT documented as of this encounter Care Teams Regulatory Intern Relationship Specialty Start Date End Date Arturo Iverson MD [address] [place] [address], [address] [place] [address] PCP - General 04/14/17 12/17/20 Arturo Iverson MD [address] [place] [address], [address] [place] [address] [email or web address] PCP - General Internal Medicine 12/18/20 Arturo Iverson MD [address] [place] [address], [address] [place] [address] [email or web address] Insurance Assigned Provider 09/23/23 documented as of this encounter Additional Source Comments The information contained in this document represents components of the legal health record. It is not the complete legal health record.[facility]
--- OUTSIDE RECORDS SUMMARY | 2025-03-18 13:52 | XMS_ITS | Encounter Summary ---
Author Organization [facility] Address [address] [place] [address] Phone Care Team Providers Care Petrology Teacher Name Role Phone Arturo Iverson MD Primary Care Provider [phone] Arturo Iverson MD Unavailable [phone] Arturo Iverson MD Primary Care Provider [phone] Encounter Details Date Type Department Care Team (Latest Contact Info) Description 07/09/2020 Ancillary Orders Virtual Department 30 [place] [address] Mark Anthony Rondon MD [address] [place] [id number] [email or web address] Spondylolisthesis of lumbar region; Other spondylosis with radiculopathy, lumbar region; Degenerative lumbar disc Social History Tobacco Use Types Packs/Day Years [...] Description 06/02/2025 1:00 PM EST Office Visit [facility] Medicine [address] [place] [address] [place] [address] Arturo Iverson MD 22 [facility], [address] [place] [address] 07/04/2025 1:45 PM EST Office Visit [facility] Gastroenterology Clinic 10 [place] [address] Unknown, Unknown, Nola Hughes, ADALI 10 [place] [address] 07/10/2025 2:15 PM EST Office Visit [facility] Orthopedics & Sports Medicine [address] [place] [address] Angela Salcedo MD [address] [place] [address] Orthopedics & Sports Medicine, [facility] [place] [address] 12/08/2025 1:00 PM EDT Office Visit [facility] [address] [place] [address] 3rd Floor, [address] [place] [address] Enrique Garcia DO 22 [facility] [address] [place] [address] documented as of this encounter Results * XR LUMBOSACRAL SPINE 2-3 VIEWS (07/10/2020 11:26 AM EST) Anatomical Region Laterality Modality L-spine Computed Radiogr aphy 07/10/2020 11:4 7 AM EST Impressions 07/10/2020 11:50 AM EST 1.Increase in grade 1 spondylolisthesis of L4 and progressive moderate facet arthropathy. 2.Stable mild L4-5 disc disease and moderate L5-S1 facet arthropathy. Narrative 07/10/2020 11:50 AM EST HISTORY: As above. COMPARISON: Lumbar spine x-rays 06/09/2017. MRI lumbar spine 06/11/2019. LUMBAR SPINE RADIOGRAPH FINDINGS: 3 images obtained. Stable osteopenia and minimal curvature. No acute fracture. Increase in grade 1 spondylolisthesis of L4 (6 mm). Stable multilevel endplate spurring. Progressive moderate L4-5 facet arthropathy. Stable moderate L5-S1 facet arthropathy. Stable mild L4-5 disc space narrowing. No compression fractures. No destructive or suspicious bone lesions. Mildly progressive abdominal aortic atherosclerosis. Procedure Note Wicho Fitzpatrick MD - 07/10/2020 HISTORY: As above. COMPARISON: Lumbar spine x-rays 06/09/2017. MRI lumbar spine 06/11/2019. LUMBAR SPINE RADIOGRAPH FINDINGS: 3 images obtained. Stable osteopenia and minimal curvature. No acute fracture. Increase ingrade 1 spondylolisthesis of L4 (6 mm). Stable multilevel endplatespurring. Progressive moderate L4-5 facet arthropathy. Stable moderateL5-S1 facet arthropathy. Stable mild L4-5 disc space narrowing. Nocompression fractures. No destructive or suspicious bone lesions. Mildlyprogressive abdominal aortic atherosclerosis. IMPRESSION: 1.Increase in grade 1 spondylolisthesis of L4 and progressive moderatefacet arthropathy. 2.Stable mild L4-5 disc disease and moderate L5-S1 facet arthropathy. us Mark Anthony Rondon MD IMG XR SPINE Final R esult documented in this encounter Visit Diagnoses Diagnosis Spondylolisthesis of lumbar region Other spondylosis with radiculopathy, lumbar region Degenerative lumbar disc Spondylolisthesis of lumbar region Other spondylosis with radiculopathy, lumbar region Degenerative lumbar disc documented in this encounter Additional Health Concerns Infection Onset Date Last Indicated Resolved Time CoV-Risk 08/27/2021 09/01/202109/12/2021 1:21 AM EDT Assessment Noted Time PHQ-2 Depression Total Score: 0 02/06/20 3:42 PM EDT documented as of this encounter Care Teams Petrology Teacher Relationship Specialty Start Date End Date Arturo Iverson MD 22 [facility], [address] [place] [address] PCP - General 04/14/17 12/17/20 Arturo Iverson MD 22 [facility], [address] [place] [address] PCP - General Internal Medicine 12/18/20 Arturo Iverson MD 22 [facility], [address] [place] [address] Insurance Assigned Provider 09/23/23 documented as of this encounter Additional Source Comments The information contained in this document represents components of the legal health record. It is not the complete legal health record.[facility]
--- OUTSIDE RECORDS SUMMARY | 2025-03-18 13:52 | XMS_ITS | Encounter Summary ---
Author Organization [facility] Address [address] [facility] [address] [place] [address] Phone Care Team Providers Care Auto Body Estimator Name Role Phone rAturo Iverson MD Primary Care Provider [phone] Arturo Iverson MD Unavailable Arturo Iverson MD Primary Care Provider [phone] Encounter Details Date Type Department Care Team (Latest Contact Info) Description 11/14/[address] [facility] [address] [place] [address] Darshan Tyson MD [address] [place] [address], [address] [place] [address] [email or web address] Hypopotassemia (Primary Dx); Stage 3b chronic kidney disease Social History Tobacco Use Types Packs/Day Years [...] Description 06/02/2025 1:00 PM EST Office Visit [facility] Family Medicine [address] [place] [address] [place] [address] Arturo Iverson MD 22 [facility], [address] [place] [address] 07/04/2025 1:45 PM EST Office Visit [facility] Gastroenterology Clinic 10 [place] [address] Unknown, Unknown, Nola Hughes, ADALI 10 [place] [address] 07/10/2025 2:15 PM EST Office Visit [facility] Orthopedics & Sports Medicine [address] [place] [address] Angela Salcedo MD [address] [place] [address] Orthopedics & Sports Medicine, [place] [address] 12/08/2025 1:00 PM EDT Office Visit [facility] [address] [place] [address] Dr 3rd Floor, [address] [place] [address] Enrique Garcia DO 22 [facility] [address] [place] [address] [email or web address] documented as of this encounter Results * 25-OH vitamin D (11/14/2019 1:57 PM EDT) 25 OH VIT D (TOTAL) 45 30 - 60 ng/mL [facility] Blood 11/14/2019 1:57 PM EDT 11/14/2019 2:14 PM EDT us Darshan Tyson MD LAB BLOOD ORDERABLES Final Re sult [address] [address] * (ABNORMAL) Basic metabolic panel (11/14/2019 1:57 PM EDT) SODIUM 138 133 - 146 mmol/L [facility] CHLORIDE 101 96 - 108 mmol/L [facility] POTASSIUM 3.4 3.3 - 5.1 mmol/L [facility] CO2 25 21 - 35 mmol/L [facility] BUN 20(H) 6 - 19 mg/dL [facility] CREATININE 1.60(H) 0.5 - 1.5 mg/dL [facility] GLUCOSE 69(L) 70 - 99 mg/dL [facility] CALCIUM 9.5 8.4 - 10.3 mg/dL [facility] EGFR 33(L) >59 mL/min/1.7 3m2 [facility] Comment:If patient is black, multiply result by 1.159. Estimated glomerular filtration rate calculated using the CKD-EPI equation. ANION GAP 15 10 - 20 mmol/L [facility] Blood 11/14/2019 1:57 PM EDT 11/14/2019 2:14 PM EDT us Darshan Tyson MD LAB BLOOD ORDERABLES Final Re sult Performing Organization Address City/[facility]/ZIP Co de Phone Number [address] [address] * Magnesium (11/14/2019 1:57 PM EDT) MAGNESIUM 1.9 1.6 - 2.6 mg/dL [facility] Blood 11/14/2019 1:57 PM EDT 11/14/2019 2:14 PM EDT Darshan Tyson MD LAB BLOOD ORDERABLES Final Re sult [address] [address] * CBC (11/14/2019 1:57 PM EDT) WBC 9.64 4.00 - 11.00 K/uL [facility] Comment:Note Reference Range updates to all CBC and Differential results. RBC 4.36 3.72 - 5.30 M/uL [facility] HGB 13.2 11.4 - 15.9 g/dL [facility] Comment:Note updated Referen ce Ranges for all CBC and Differential results. HCT 39.7 34.2 - 46.8 % [facility] PLT 334 140 - 430 K/uL [facility] MCV 91.1 78.0 - 97.0 fL [facility] MCH 30.3 25.0 - 33.0 pg [facility] MCHC 33.2 32.0 - 36.0 g/dL [facility] RDW 14.1 11.0 - 16.0 % [facility] MPV 11.1 8.4 - 12.8 fl [facility] NRBC 0.00 0 /100 WBCs [facility] ABSOLUTE NRBC 0.00 0 K/uL [facility] Blood 11/14/2019 1:57 PM EDT 11/14/2019 2:14 PM EDT Darshan Tyson MD LAB BLOOD ORDERABLES Final Re sult [address] [address] * (ABNORMAL) Microalbumin/creatinine ratio, random urine (11/14/2019 1:57 PM EDT) URINE MICROALBUMIN 3.3(H) 0 - 2.3 mg/dL [facility] URINE CREATININE 59 mg/dL ENGINE RESEARCH ENGINEER [facility] MICROALB/CRE RATIO 55.9(H) 0 - 20 mg/g Cre [facility] Urine (Urine) 11/14/2019 1:5 7 PM EDT 11/14/2019 6:21 PM EDT us Darshan Tyson MD URINE ORDERABLES Final Result [facility] [address] [place] [address] documented in this encounter Visit Diagnoses Diagnosis Hypopotassemia- Primary Stage 3b chronic kidney disease documented in this encounter Additional Health Concerns Infection Onset Date Last Indicated Resolved Time CoV-Risk 08/27/2021 09/01/2021 09/12/2021 1:21 AM EDT Assessment Noted Time PHQ-2 Depression Total Score: 0 09/07/19 11:38 AM EDT documented as of this encounter Care Teams Auto Body Estimator Relationship Specialty Start Date End Date Arturo Iverson MD 22 [facility], [address] [address] PCP - General 04/14/17 12/17/20 Arturo Iverson MD 22 [facility], [address] [address] PCP - General Internal Medicine 12/18/20 Arturo Iverson MD 22 [facility], [address] [address] Insurance Assigned Provider 09/23/23 documented as of this encounter Additional Source Comments The information contained in this document represents components of the legal health record. It is not the complete legal health record.[facility]
--- OUTSIDE RECORDS SUMMARY | 2025-03-18 13:52 | XMS_ITS | Encounter Summary ---
Author Organization [facility] Address [address] [place] [address] Phone Care Team Providers Care Warehouse Coordinator Name Role Phone Arturo Iverson MD Primary Care Provider [phone] Arturo Iverson MD Unavailable [phone] Arturo Iverson MD Primary Care Provider Encounter Details Date Type Department Care Team (Late st Contact Info) Description 06/03/2019 Procedure Pass [address] [place] [address] Social History Tobacco Use Types Packs/Day Years [...] Description 06/02/2025 1:00 PM EST Office Visit [address] [place] [address] Arturo Iverson MD [address] [place] [address], [address] [place] [address] 07/04/2025 1:45 PM EST Office Visit [facility] Gastroenterology Clinic 10 [place] [address] Unknown, Unknown, Nola Hughes, ADALI 10 [place] [address] 07/10/2025 2:15 PM EST Office Visit [facility] Orthopedics & Sports Medicine [address] [place] [address] Angela Salcedo MD [address] [place] [address] Orthopedics & Sports Medicine, [facility] [place] [address] 12/08/2025 1:00 PM EDT Office Visit [facility] [address] [place] [address] 3rd Floor, [address] [place] [address] Enrique Garcia DO [address] [place] [address] [place] [address] documented as of this encounter Visit Diagnoses Not on filedocumented in this encounter Additional Health Concerns Infection Onset Date Last Indicated Resolved Time CoV-Risk 08/27/2021 09/01/2021 09/12/2021 1:21 AM EDT Assessment Noted Time PHQ-2 Depression Total Score: 0 09/07/19 19 11:38 AM EDT documented as of this encounter Care Teams Warehouse Coordinator Relationship Specialty Start Date End Date Arturo Iverson MD [address] [place] [address], [address] [place] [address] PCP - General 04/14/17 12/17/20 Arturo Iverson MD [address] [place] [address], [address] [place] [address] [email or web address] PCP - General Internal Medicine 12/18/20 Arturo Iverson MD [address] [place] [address], [address] [place] [address] [email or web address] Insurance Assigned Provider 09/23/23 documented as of this encounter Additional Source Comments The information contained in this document represents components of the legal health record. It is not the complete legal health record.[facility]
--- OUTSIDE RECORDS SUMMARY | 2025-03-18 13:52 | XMS_ITS | Encounter Summary ---
Author Organization [facility] Address [address] [place] [address] Phone Care Team Providers Care Vp Software Support Name Role Phone Arturo Iverson MD Primary Care Provider [phone] Arturo Iverson MD Unavailable [phone] Arturo Iverson MD Primary Care Provider [phone] Encounter Details Date Type Department Care Team (Late st Contact Info) Description 02/18/2020 Procedure Pass [facility] - [address] [place] [address] Social History Tobacco Use Types Packs/Day Years [...] Description 06/02/2025 1:00 PM EST Office Visit [facility] [address] [place] [address] Arturo Iverson MD [address] [place] [address], [address] [place] [address] 07/04/2025 1:45 PM EST Office Visit [facility] Gastroenterology Clinic 10 [place] [address] Unknown, Unknown, MD Franks, Nola Kahn, ADALI 10 [place] [address] 07/10/2025 2:15 PM EST Office Visit [facility] Orthopedics & Sports Medicine [address] [place] [address] Angela Salcedo MD [address] [place] [address] Orthopedics & Sports Medicine, [place] [address] 12/08/2025 1:00 PM EDT Office Visit [facility] [address] [place] [address] 3rd Floor, [address] [place] [address] Enrique Garcia DO [address] [place] [address] [place] [address] documented as of this encounter Visit Diagnoses Not on filedocumented in this encounter Additional Health Concerns Infection Onset Date Last Indicated Resolved Time CoV-Risk 08/27/2021 09/01/2021 09/12/2021 1:21 AM EDT Assessment Noted Time PHQ-2 Depression Total Score: 0 02/06/20 3:42 PM EDT documented as of this encounter Care Teams Vp Software Support Relationship Specialty Start Date End Date Arturo Iverson MD [address] [place] [address], [address] [place] [address] PCP - General 04/14/17 12/17/20 Arturo Iverson MD 22 [facility], [address] [place] [address] PCP - General Internal Medicine 12/18/20 Arturo Iverson MD 22 [facility], [address] [place] [address] [email or web address] Insurance Assigned Provider 09/23/23 documented as of this encounter Additional Source Comments The information contained in this document represents components of the legal health record. It is not the complete legal health record.[facility]
--- OUTSIDE RECORDS SUMMARY | 2025-03-18 13:52 | XMS_ITS | Encounter Summary ---
Author Organization [facility] Address [address] [facility] [address] [place] [address] Phone Care Team Providers Care Home Agent Name Role Phone Arturo Iverson MD Primary Care Provider Arturo Iverson MD Unavailable [phone] Arturo Iverson MD Primary Care Provider Encounter Details Date Type Department Care Team (Late st Contact Info) Description 08/06/2019 Transcribe Orders [facility] [address] [place] [address] Arturo Iverson MD 22 [facility], [address] [place] [address] [email or web address] Social History Tobacco Use Types Packs/Day Years [...] 06/02/2025 1:00 PM EST Office Visit [address] [place] [address] Arturo Iverson MD [address] [place] [address], [address] [place] [address] 07/04/2025 1:45 PM EST Office Visit [facility] Gastroenterology Clinic 10 [place] [address] Unknown, Unknown, Nola Hughes, ADALI 10 [place] [address] 07/10/2025 2:15 PM EST Office Visit [facility] Orthopedics & Sports Medicine [address] [place] [address] Angela Salcedo MD [address] [place] [address] Orthopedics & Sports Medicine, [facility] [place] [address] 12/08/2025 1:00 PM EDT Office Visit [facility] [address] [place] [address] 3rd Floor, [address] [place] [address] Enrique Garcia DO [address] [place] [address] [place] [address] documented as of this encounter Visit Diagnoses Not on filedocumented in this encounter Additional Health Concerns Infection Onset Date Last Indicated Resolved Time CoV-Risk 08/27/2021 09/01/2021 09/12/2021 1:21 AM EDT Assessment Noted Time PHQ-2 Depression Total Score: 0 09/07/19 19 11:38 AM EDT documented as of this encounter Care Teams Home Agent Relationship Specialty Start Date End Date Arturo Iverson MD [address] [place] [address], [address] [place] [address] [email or web address] PCP - General 04/14/17 12/17/20 Arturo Iverson MD 22 [facility], [address] [place] [address] [email or web address] PCP - General Internal Medicine 12/18/20 Arturo Iverson MD 22 [facility], [address] [place] [address] [email or web address] Insurance Assigned Provider 09/23/23 documented as of this encounter Additional Source Comments The information contained in this document represents components of the legal health record. It is not the complete legal health record.[facility]
--- OUTSIDE RECORDS SUMMARY | 2025-03-18 13:52 | XMS_ITS | Encounter Summary ---
Author Organization [facility] Address [address] [facility] [address] [place] [address] Phone Care Team Providers Care Metal Flooring Installer Name Role Phone Arturo Iverson MD Unavailable [phone] Arturo Iverson MD Primary Care Provider [phone] Encounter Details Date Type Department Care Team (Late st Contact Info) Description 06/08/2023 Transcribe Orders [facility] 30 [place], [place] [id number] Arturo Iverson MD 22 [facility], [address] [place] [address] [email or web address] Social History Tobacco Use Types Packs/Day Years Used Date Smoking Tobacco: Some Days Cigarettes 0.3 60.7 Started: 1963 Smokeless Tobacco: Never Comments: LIGHT SMOKER wear [...] Description 06/02/2025 1:00 PM EST Office Visit [facility] Family Medicine [address] [place] [address] Arturo Iverson MD 22 [facility], [address] [place] [address] 07/04/2025 1:45 PM EST Office Visit [facility] Gastroenterology Clinic 10 [place] [address] Unknown, Unknown, Nola Hughes, SIMULATION DEVELOPER 10 [place] [address] 07/10/2025 2:15 PM EST Office Visit [facility]ics [facility] Sports Medicine [address] [place] [address] Angela Salcedo MD [address] [place] [address] Orthopedics & Sports Medicine, [facility] [place] [address] 12/08/2025 1:00 PM EDT Office Visit [facility] [address] Floor, [address] [place] [address] Enrique Garcia DO 22 [facility] [address] [place] [address] documented as of this encounter Visit Diagnoses Not on filedocumented in this encounter Additional Health Concerns Assessment Noted Time PHQ-2 Depression Total Score: 0 05/29/20 23 12:33 PM EST documented as of this encounter Care Teams Metal Flooring Installer Relationship Specialty Start Date End Date Arturo Iverson MD 22 [facility], [address] [place] [address] [email or web address] PCP - General Internal Medicine 12/18/20 Arturo Iverson MD 22 [facility], [address] [place] [address] Insurance Assigned Provider 09/23/23 documented as of this encounter Additional Source Comments The information contained in this document represents components of the legal health record. It is not the complete legal health record.[facility]
--- OUTSIDE RECORDS SUMMARY | 2025-03-18 13:52 | XMS_ITS | Encounter Summary ---
Author Organization [facility] Address [address] [place] [address] Phone Care Team Providers Care Bench Inspector Name Role Phone Arturo Iverson MD Unavailable [phone] Arturo Iverson MD Primary Care Provider [phone] Encounter Details Date Type Department Care Team (Latest Contact Info) Description 10/04/2023 Transcribe Orders Virtual Department [address] [place] [address] Peter Horne, APRIL [address] [place] [address] [email or web address] Vertebrogenic low back pain (Primary Dx); Other spondylosis with radiculopathy, lumbar region Social History Tobacco Use Types [...] Description 06/02/2025 1:00 PM EST Office Visit [facility] [address] [place] [address] [place] [address] Arturo Iverson MD [address] [place] [address], [address] [place] [address] 07/04/2025 1:45 PM EST Office Visit [facility] 10 [place] [address] Unknown, Unknown, Nola Hughes, METAL COATER OPERATOR 10 [place] [address] 07/10/2025 2:15 PM EST Office Visit [facility] Medicine [address] [place] [address] Angela Salcedo MD [address] [place] [address] [facility] [place] [address] 12/08/2025 1:00 PM EDT Office Visit [facility] [address] [place] [address] 3rd Floor, [address] [place] [address] Enrique Garcia DO [address] [facility] [address] [place] [address] documented as of this encounter Results * XR LUMBOSACRAL SPINE 4 OR MORE VIEWS (10/04/2023 12:35 PM EDT) Anatomical Region Laterality Modality L-spine Computed Radiogr aphy 10/06/2023 11:2 0 AM EDT Impressions 10/06/2023 11:48 AM EDT Stable grade 1 spondylolisthesis of L4 and L5. Moderate bilateral facet arthropathy at L4-L5. Other mild degenerative changes do not appear significantly changed. Narrative 10/06/2023 11:48 AM EDT XR LUMBOSACRAL SPINE 4 OR MORE VIEWS Referring clinician's provided indication for this examination in [facility]: Outside Radiology Order; vertebrogenic low back pain COMPARISON: Lumbar spine x-ray 01/03/2023, MRI lumbar spine 12/19/2020 FINDINGS: Similar curvature of the thoracolumbar spine, convexity to the right. No compression fracture. Estimated 6 mm of spondylolisthesis of L4 and L5 appears stable. No new subluxation. Mild disc space narrowing at L4-L5. Other disc spaces remain well-maintained. Mild degenerative endplate changes. Moderate bilateral facet arthropathy at L4-L5. No other significant changes. Procedure Note Mikie Otoole MD - 10/06/2023 XR LUMBOSACRAL SPINE 4 OR MORE VIEWS Referring clinician's provided indication for this examination in [facility]:Outside Radiology Order; vertebrogenic low back pain COMPARISON: Lumbar spine x-ray 01/03/2023, MRI lumbar spine 12/19/2020 FINDINGS: Similar curvature of the thoracolumbar spine, convexity to the right. No compression fracture. Estimated 6 mm of spondylolisthesis of L4 and [id number] stable. No new subluxation. Mild disc space narrowing at L4-L5. Other disc spaces remainwell-maintained. Mild degenerative endplate changes. Moderate bilateral facet arthropathy at L4-L5. No other significant changes. IMPRESSION: Stable grade 1 spondylolisthesis of L4 and L5. Moderate bilateral facetarthropathy at L4-L5. Other mild degenerative changes do not appearsignificantly changed. us Peter Horne METAL COATER OPERATOR IMG XR SPINE Final Res ult documented in this encounter Visit Diagnoses Diagnosis Vertebrogenic low back pain- Primary Other spondylosis with radiculopathy, lumbar region Vertebrogenic low back pain Other spondylosis with radiculopathy, lumbar region documented in this encounter Additional Health Concerns Assessment Noted Time PHQ-2 Depression Total Score: 0 05/29/20 23 12:33 PM EST documented as of this encounter Care Teams Bench Inspector Relationship Specialty Start Date End Date Arturo Iverson MD [address] [facility], [address] [place] [address] PCP - General Internal Medicine 12/18/20 Arturo Iverson MD [address] [facility], [address] [place] [address] Insurance Assigned Provider 09/23/23 documented as of this encounter Additional Source Comments The information contained in this document represents components of the legal health record. It is not the complete legal health record.[facility]
--- OUTSIDE RECORDS SUMMARY | 2025-03-18 13:52 | XMS_ITS | Encounter Summary ---
Author Organization [facility] Address [address] [place] [address] Phone Care Team Providers Care Icu Clerk Name Role Phone Arturo Iverson MD Primary Care Provider [phone] Arturo Iverson MD Unavailable [phone] Arturo Iverson MD Primary Care Provider [phone] Encounter Details Date Type Department Care Team (Late st Contact Info) Description 10/08/2019 Transcribe Orders [facility] [address] [place] [address] Arturo Iverson MD [address] [facility], [address] [place] [address] [email or web address] Social History [...] Description 06/02/2025 1:00 PM EST Office Visit [address] [place] [address] Arturo Iverson MD [address] [place] [address], [address] [place] [address] 07/04/2025 1:45 PM EST Office Visit [facility] G[facility]ology [facility] 10 [place] [address] Unknown, Unknown, Nola Hughes, ADALI 10 [place] [address] 07/10/2025 2:15 PM EST Office Visit [facility] Orth[facility]ics & Sports Medicine [address] [place] [address] Angela Salcedo MD [address] [place] [address] Orthopedics & Sports Medicine, [facility] [place] [address] 12/08/2025 1:00 PM EDT Office Visit [facility] [address] [place] [address] 3rd Floor, [address] [place] [address] Enrique Garcia DO [address] [place] [address] [place] [address] documented as of this encounter Visit Diagnoses Not on filedocumented in this encounter Additional Health Concerns Infection Onset Date Last Indicated Resolved Time CoV-Risk 08/27/2021 09/01/2021 09/12/2021 1:21 AM EDT Assessment Noted Time PHQ-2 Depression Total Score: 0 09/07/19 19 11:38 AM EDT documented as of this encounter Care Teams Icu Clerk Relationship Specialty Start Date End Date Arturo Iverson MD [address] [place] [address], [address] [place] [address] [email or web address] PCP - General 04/14/17 12/17/20 Arturo Iverson MD [address] [facility], [address] [place] [address] [email or web address] PCP - General Internal Medicine 12/18/20 Arturo Iverson MD [address] [facility], [address] [place] [address] [email or web address] Insurance Assigned Provider 09/23/23 documented as of this encounter Additional Source Comments The information contained in this document represents components of the legal health record. It is not the complete legal health record.[facility]
--- OUTSIDE RECORDS SUMMARY | 2025-03-18 13:52 | XMS_ITS | Encounter Summary ---
Author Organization [facility] Address [address] [facility] [address] [facility] [address] [place] [address] Phone Care Team Providers Care Multi Mission Helicopter Aircrewman Name Role Phone Arturo Iverson MD Primary Care Provider [phone] Arturo Iverson MD Unavailable [phone] Arturo Iverson MD Primary Care Provider [phone] Encounter Details Date Type Department Care Team (Late st Contact Info) Description 08/08/2019 Transcribe Orders [facility] 29 [place] [address] Arturo Iverson MD [address] [facility], [address] [place] [address] [email or web address] Social History Tobacco Use Types Packs/Day Years [...] Description 06/02/2025 1:00 PM EST Office Visit [address] [place] [address] Arturo Iverson MD [address] [place] [address], [address] [place] [address] 07/04/2025 1:45 PM EST Office Visit [facility] G[facility]enterology [facility] 10 [place] [address] Unknown, Unknown, Nola Hughes, ADALI 10 [place] [address] 07/10/2025 2:15 PM EST Office Visit [facility] Orthopedics & Sports Medicine [address] [place] [address] Angela Salcedo MD [address] [place] [address] Orthopedics & Sports Medicine, [facility] [place] [address] 12/08/2025 1:00 PM EDT Office Visit [facility] [address] [place] [address] 3rd Floor, [address] [place] [address] Enrique Garcia DO [address] [place] [address] [place] [address] documented as of this encounter Visit Diagnoses Not on filedocumented in this encounter Additional Health Concerns Infection Onset Date Last Indicated Resolved Time CoV-Risk 08/27/2021 09/01/2021 09/12/2021 1:21 AM EDT Assessment Noted Time PHQ-2 Depression Total Score: 0 09/07/19 19 11:38 AM EDT documented as of this encounter Care Teams Multi Mission Helicopter Aircrewman Relationship Specialty Start Date End Date Arturo Iverson MD [address] [place] [address], [address] [place] [address] [email or web address] PCP - General 04/14/17 12/17/20 Arturo Iverson MD [address] [facility], [address] [place] [address] [email or web address] PCP - General Internal Medicine 12/18/20 Arturo Iverson MD [address] [facility], [address] [place] [address] [email or web address] Insurance Assigned Provider 09/23/23 documented as of this encounter Additional Source Comments The information contained in this document represents components of the legal health record. It is not the complete legal health record.[facility]
--- OUTSIDE RECORDS SUMMARY | 2025-03-18 13:52 | XMS_ITS | Encounter Summary ---
Author Organization [facility] Address [address] [place] [address] Phone Care Team Providers Care Director Of Career Resources Name Role Phone Arturo Iverson MD Unavailable [phone] Arturo Iverson MD Primary Care Provider [phone] Encounter Details Date Type Department Care Team (Late st Contact Info) Description 09/04/2023 Ancillary Orders [facility], X-Ray - [address] [place] [address] Mark Anthony Rondon MD 0 [place] [address] [email or web address] Pain in left hip (Primary Dx) Social History Tobacco [...] Description 06/02/2025 1:00 PM EST Office Visit [facility] [address] [place] [address] [place] [address] Arturo Iverson MD [address] [facility], [address] [place] [address] 07/04/2025 1:45 PM EST Office Visit [facility]astroenterology Clinic 10 [place] [address] Unknown, Unknown, Nola Hughes, ADALI 10 [place] [address] 07/10/2025 2:15 PM EST Office Visit [facility] Orthopedics & Sports Medicine [address] [place] [address] Angela Salcedo MD [address] [place] [address] [facility] [place] [address] 12/08/2025 1:00 PM EDT Office Visit [facility] [address] [place] [address] 3rd Floor, [address] [place] [address] Enrique Garcia DO [address] [facility] [address] [place] [address] documented as of this encounter Results * XR HIP 2 VW LEFT PLUS PELVIS (09/05/2023 3:27 PM EDT) Anatomical Region Laterality Modality Hip, Pelvis Computed Radiogr aphy 09/08/2023 5:12 PM EDT Impressions 09/08/2023 5:13 PM EDT Degenerative changes. No acute osseous abnormality. 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 No acute fracture. No dislocation. 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 No acute fracture. No dislocation. IMPRESSION: Degenerative changes. No acute osseous abnormality. us Mark Anthony Rondon MD IMG XR PELVIS Final R esult documented in this encounter Visit Diagnoses Diagnosis Pain in left hip- Primary documented in this encounter Additional Health Concerns Assessment Noted Time PHQ-2 Depression Total Score: 0 05/29/20 23 12:33 PM EST documented as of this encounter Care Teams Director Of Career Resources Relationship Specialty Start Date End Date Arturo Iverson MD [address] [place] [address], [address] [place] [address] PCP - General Internal Medicine 12/18/20 Arturo Iverson MD [address] [place] [address], [address] [place] [address] [email or web address] Insurance Assigned Provider 09/23/23 documented as of this encounter Additional Source Comments The information contained in this document represents components of the legal health record. It is not the complete legal health record.[facility]
--- OUTSIDE RECORDS SUMMARY | 2025-03-18 13:52 | XMS_ITS | Encounter Summary ---
Author Organization [facility] Address [address] [place] [address] Phone Care Team Providers Care Precision Lens Centerer And Edger Name Role Phone Arturo Iverson MD Primary Care Provider [phone] Arturo Iverson MD Unavailable [phone] Arturo Iverson MD Primary Care Provider [phone] Encounter Details Date Type Department Care Team (Latest Contact Info) Description 06/09/2020 Transcribe Orders Virtual Department [address] [place] [address] Darshan Tyson MD [address] [place] [address], [address] [place] [address] [email or web address] Flank pain (Primary Dx) Social History Tobacco Use [...] Description 06/02/2025 1:00 PM EST Office Visit [facility] Medicine [address] [place] [address] [place] [address] Arturo Iverson MD [address] [facility], [address] [place] [address] 07/04/2025 1:45 PM EST Office Visit [facility] 10 [place] [address] Unknown, Unknown, Nola Hughes, ADALI 10 [place] [address] 07/10/2025 2:15 PM EST Office Visit [facility] Orthopedics & Sports Medicine [address] [place] [address] Angela Salcedo MD [address] [place] [address] Orthopedics & Sports Medicine, [facility] [place] [address] 12/08/2025 1:00 PM EDT Office Visit [facility] [address] [place] [address] 3rd Floor, [address] [place] [address] Enrique Garcia DO [address] [place] [address] [place] [address] documented as of this encounter Results * US Kidneys (06/18/2020 11:54 AM EST) Anatomical Region Laterality Modality Abdomen, Kidney Ultrasound 06/18/2020 12:1 1 PM EST Impressions 06/18/2020 12:19 PM EST Numerous chronic bilateral renal cysts as above without solid renal mass, hydronephrosis, or shadowing intrarenal calculi detected. POS - [id number] Narrative 06/18/2020 12:19 PM EST COMPARISON: 07/17/2015 ultrasound and 07/23/2015 CT FINDINGS: Kidneys are within normal limits overall size with the right measuring 11.5 x 4.2 cm and the left 11.7 x 4.4 cm in a longitudinal plane. Numerous bilateral renal cysts are again demonstrated with the largest on the right measuring 2.1 x 1.8 x 2.0 cm in the lower pole (previously 3.5 x 3.6 x 2.9 cm), 1.5 x 1.2 x 1.3 cm in the right upper pole (previously 6 x 5 x 4 mm), and with multiple adjacent versus one septated cyst in the interpolar cortex measuring 1.4 x 1.6 x 1.2 cm. Largest left renal cysts measure 1.5 x 1.5 x 1.5 cm in the lower pole (previously 7 x 7 x 5 mm), 1.1 x 0.9 x 1.1 cm in the upper pole (previously 6 x 6 x 6 m), and 1.2 x 0.9 x 1.1 cm in the interpolar cortex (previously 6 x 6 x 5 mm). No solid renal mass or shadowing intrarenal calculi identified. No hydronephrosis. Patient voided prior to the examination and therefore the bladder was not evaluated. Procedure Note Delano Kerr MD - 06/18/2020 COMPARISON: 07/17/2015 ultrasound and 07/23/2015 CT FINDINGS: Kidneys are within normal limits overall size with the right eieyndylb27.5 x 4.2 cm and the left 11.7 x 4.4 cm in a longitudinal plane. Numerousbilateral renal cysts are again demonstrated with the largest on the rightmeasuring 2.1 x 1.8 x 2.0 cm in the lower pole (previously 3.5 x 3.6 x 2.9cm), 1.5 x 1.2 x 1.3 cm in the right upper pole (previously 6 x 5 x 4 mm),and with multiple adjacent versus one septated cyst in the interpolarcortex measuring 1.4 x 1.6 x 1.2 cm. Largest left renal cysts measure 1.5x 1.5 x 1.5 cm in the lower pole (previously 7 x 7 x 5 mm), 1.1 x 0.9 x1.1 cm in the upper pole (previously 6 x 6 x 6 m), and 1.2 x 0.9 x 1.1 cmin the interpolar cortex (previously 6 x 6 x 5 mm). No solid renal mass orshadowing intrarenal calculi identified. No hydronephrosis. Patient voided prior to the examination and therefore the bladder was notevaluated. IMPRESSION: Numerous chronic bilateral renal cysts as above without solid renal mass,hydronephrosis, or shadowing intrarenal calculi detected. POS - [id number] us Darshan Tyson MD [facility] Final Result documented in this encounter Visit Diagnoses Diagnosis Flank pain- Primary Abdominal pain, unspecified site Flank pain Abdominal pain, unspecified site documented in this encounter Additional Health Concerns Infection Onset Date Last Indicated Resolved Time CoV-Risk 08/27/2021 09/01/2021 09/12/2021 1:21 AM EDT Assessment Noted Time PHQ-2 Depression Total Score: 0 02/06/20 20 3:42 PM EDT documented as of this encounter Care Teams Prec[employer] Lens Centerer And Edger Relationship Specialty Start Date End Date Arturo Iverson MD [address] [place] [address], [address] [address] PCP - General 04/14/17 12/17/20 Arturo Iverson MD [address] [place] [address], [address] [address] PCP - General Internal Medicine 12/18/20 Arturo Iverson MD [address] [place] [address], [address] [address] Insurance Assigned Provider 09/23/23 documented as of this encounter Additional Source Comments The information contained in this document represents components of the legal health record. It is not the complete legal health record.[facility]
--- OUTSIDE RECORDS SUMMARY | 2025-03-18 13:52 | XMS_ITS | Encounter Summary ---
Author Organization [facility] Address [address] [place] [address] Phone Care Team Providers Care Fur Buyer Name Role Phone Arturo Iverson MD Unavailable [phone] Arturo Iverson MD Primary Care Provider [phone] Encounter Details Date Type Department Care Team (Late st Contact Info) Description 03/10/2022 Procedure Pass [facility], Ct Scan - [address] [address] Social History Tobacco Use Types Packs/Day Years [...] Description 06/02/2025 1:00 PM EST Office Visit [facility] [address] [place] [address] [place] [address] Arturo Iverson MD [address] [facility], [address] [place] [address] 07/04/2025 1:45 PM EST Office Visit [facility] Gastroenterology Clinic 10 [place] [address] Unknown, Unknown, Nola Hughes, ADALI 10 [place] [address] 07/10/2025 2:15 PM EST Office Visit [facility] Orthopedics & Sports Medicine [address] [place] [address] Angela Salcedo MD [address] [place] [address] Orthopedics & Sports Medicine, [place] [address] 12/08/2025 1:00 PM EDT Office Visit [facility] [address] [place] [address] 3rd Floor, [address] [place] [address] Enrique Garcia DO [address] [facility] [address] [place] [address] [email or web address] documented as of this encounter Visit Diagnoses Not on filedocumented in this encounter Additional Health Concerns Assessment Noted Time PHQ-2 Depression Total Score: 0 02/06/20 20 3:42 PM EDT documented as of this encounter Care Teams Fur Buyer Relationship Specialty Start Date End Date Arturo Iverson MD [address] [place] [address], [address] [place] [address] PCP - General Internal Medicine 12/18/20 Arturo Iverson MD [address] [place] [address], [address] [place] [address] [email or web address] Insurance Assigned Provider 09/23/23 documented as of this encounter Additional Source Comments The information contained in this document represents components of the legal health record. It is not the complete legal health record.[facility]
--- OUTSIDE RECORDS SUMMARY | 2025-03-18 13:52 | XMS_ITS | Encounter Summary ---
Author Organization [facility] Address [address] [facility] [address] [place] [address] Phone Care Team Providers Care Virginia Line Attendant Name Role Phone Arturo Iverson MD Primary Care Provider [phone] Arturo Iverson MD Unavailable [phone] Arturo Iverson MD Primary Care Provider [phone] Encounter Details Date Type Department Care Team (Latest Contact Info) Description 08/08/2019 Transcribe Orders [facility] [address] [place] [address] Darshan Tyson MD [address] [place] [address], [address] [place] [address] [email or web address] Other proteinuria (Primary Dx) Social History Tobacco Use Types [...] Description 06/02/2025 1:00 PM EST Office Visit [facility] [address] [place] [address] [place] [address] Arturo Iverson MD [address] [facility], [address] [place] [address] 07/04/2025 1:45 PM EST Office Visit [facility] 10 [place] [address] Unknown, Unknown, Nola Hughes, ADALI 10 [place] [address] 07/10/2025 2:15 PM EST Office Visit [facility]ics [facility] Sports Medicine [address] [place] [address] Angela Salcedo MD [address] [place] [address] Orthopedics & Sports Medicine, [place] [address] 12/08/2025 1:00 PM EDT Office Visit [facility] [address] [place] [address] 3rd Floor, [address] [place] [address] Enrique Garcia DO [address] [place] [address] [place] [address] [email or web address] documented as of this encounter Results * TOTAL PROTEIN CREATININE RATIO, RANDOM URINE (08/08/2019 11:56 AM EST) URINE TOTAL PROTEIN 2.7 mg/dL [facility] URINE CREATININE 12 mg/dL [facility] URINE TP CRE RATIO NOT CALCULATED 0 - 0.19 [facility] Comment:DUE TO URINE PROTEIN <4.0 Urine (Urine) 08/08/2019 11: 56 AM EST 08/08/2019 1:28 PM EST us Darshan Tyson MD URINE ORDERABLES Final Result Performing Organization Address City/[facility]/ZIP Co de Phone Number [address] [address] * (ABNORMAL) 25-OH vitamin D (08/08/2019 11:56 AM EST) 25 [place] VIT D (TOTAL) 75(H) 30 - 60 ng/mL [facility] Blood 08/08/2019 11:5 6 AM EST 08/08/2019 12:11 PM EST us Darshan Tyson MD LAB BLOOD ORDERABLES Final Re sult Performing Organization Address [facility] Co de Phone Number [address] [address] documented in this encounter Visit Diagnoses Diagnosis Other proteinuria- Primary documented in this encounter Additional Health Concerns Infection Onset Date Last Indicated Resolved Time CoV-Risk 08/27/2021 09/01/2021 09/12/2021 1:21 AM EDT Assessment Noted Time PHQ-2 Depression Total Score: 0 09/07/19 19 11:38 AM EDT documented as of this encounter Care Teams Virginia Line Attendant Relationship Specialty Start Date End Date Arturo Iverson MD [address] [place] [address], [address] [address] PCP - General 04/14/17 12/17/20 Arturo Iverson MD [address] [place] [address], [address] [address] PCP - General Internal Medicine 12/18/20 Arturo Iverson MD [address] [place] [address], [address] [address] [email or web address] Insurance Assigned Provider 09/23/23 documented as of this encounter Additional Source Comments The information contained in this document represents components of the legal health record. It is not the complete legal health record.[facility]
--- OUTSIDE RECORDS SUMMARY | 2025-03-18 13:52 | XMS_ITS | Encounter Summary ---
Author Organization [facility] Address [address] [facility] [address] [place] [address] Phone Care Team Providers Care Traffic Control Flagger Name Role Phone Arturo Iverson MD Primary Care Provider [phone] Arturo Iverson MD Unavailable [phone] Arturo Iverson MD Primary Care Provider [phone] Encounter Details Date Type Department Care Team (Late st Contact Info) Description 07/15/2019 Transcribe Orders [facility] [address] [place] [address] Arturo Iverson MD 22 [facility], [address] [place] [address] [email or web address] Social History Tobacco Use Types Packs/Day Years [...] Description 06/02/2025 1:00 PM EST Office Visit [address] [place] [address] Arturo Iverson MD [address] [place] [address], [address] [place] [address] 07/04/2025 1:45 PM EST Office Visit [facility] 10 [place] [address] Unknown, Unknown, Nola Hughes, ADALI 10 [place] [address] 07/10/2025 2:15 PM EST Office Visit [facility] Orthopedics & Sports Medicine [address] [place] [address] Angela Salcedo MD [address] [place] [address] Orthopedics & Sports Medicine, [facility] [place] [address] 12/08/2025 1:00 PM EDT Office Visit [facility] [address] [place] [address] 3rd Floor, [address] [place] [address] Enrique Garcia DO [address] [place] [address] [place] [address] documented as of this encounter Visit Diagnoses Not on filedocumented in this encounter Additional Health Concerns Infection Onset Date Last Indicated Resolved Time CoV-Risk 08/27/2021 09/01/2021 09/12/2021 1:21 AM EDT Assessment Noted Time PHQ-2 Depression Total Score: 0 09/07/19 19 11:38 AM EDT documented as of this encounter Care Teams Traffic Control Flagger Relationship Specialty Start Date End Date Arturo Iverson MD [address] [place] [address], [address] [place] [address] [email or web address] PCP - General 04/14/17 12/17/20 Arturo Iverson MD 22 [facility], [address] [place] [address] [email or web address] PCP - General Internal Medicine 12/18/20 Arturo Iverson MD 22 [facility], [address] [place] [address] [email or web address] Insurance Assigned Provider 09/23/23 documented as of this encounter Additional Source Comments The information contained in this document represents components of the legal health record. It is not the complete legal health record.[facility]
--- OUTSIDE RECORDS SUMMARY | 2025-03-18 13:53 | XMS_ITS | Encounter Summary ---
Author Organization [facility] Address [address] [facility] [address] [place] [address] Phone Care Team Providers Care Stable Manager Name Role Phone Arturo Iverson MD Unavailable Arturo Iverson MD Primary Care Provider [phone] Reason for Visit * Reason Comments Medication Refill Encounter Details Date Type Department Care Team (Late st Contact Info) Description 03/05/2025 Refill [facility] [address] [place] [address] Arturo Iverson MD 22 [facility], [address] [place] [address] [email or web address] Medication Refill Social History Tobacco Use Types Packs/Day Years [...] as of this encounter Progress Notes * Amelia Dempsey MA - 03/05/2025 3:09 PM EDT Rx Care Gap Status - Instructions for Clinical Staff (prescriber discretion applies): > Mismatch review guide > At least one request does not meet full criteria. Specifics below. Visit Info Last visit: 01/16/2025 Arturo Iverson MD - Family Medicine [facility] > Requested f/u: Not specified Upcoming visit: 06/02/2025 Arturo Iverson MD - Family Medicine [facility] ACTIONS TAKEN BY Amelia Dempsey MA - Labs needed - Teed up orders and/or reminded pt. - Updated rx duration per protocol. ACEi / ARBs / Diuretic Rx Protocol (on HTN Registry) - hydrochlorothiazide Criteria not met; renew for up to 3 months. Rx duration is at prescriber discretion if labs are stable and dose is appropriate for renal function. Visit in the past 14 months: Yes Clinical criteria: - BP within last 6 months: 104/62 on 01/16/2025 - BMP within past year: Yes - Cr, GFR and K are normal: No Lab Results Component Value Date SODIUM 140 09/27/2024 POTASSIUM 4.1 09/27/2024 CHLORIDE 103 09/27/2024 CO2 28 09/27/2024 BUN 19 09/27/2024 CREATININE 1.30 09/27/2024 EGFR 43 (L) 09/27/2024 Lab Results Component Value Date CREATININE 1.30 09/27/2024 CREATININE 1.40 07/02/2024 CREATININE 1.50 06/05/2024 EGFR 43 (L) 09/27/2024 EGFR 40 (L) 07/02/2024 EGFR 37 (L) 06/05/2024 documented in this encounter Plan of Treatment Upcoming Encounters Date Type Department Care Team (Late st Contact Info) Description 06/02/2025 1:00 PM EST Office Visit [address] [place] [address] Arturo Iverson MD [address] [place] [address], [address] [place] [address] [email or web address] 07/04/2025 1:45 PM EST Office Visit [facility] 10 [place] [address] Unknown, Unknown, Nola Hughes, ADALI 10 [place] [address] 07/10/2025 2:15 PM EST Office Visit [facility] Orthopedics & Sports Medicine [address] [place] [address] Angela Salcedo MD [address] [place] [address] Orthopedics & Sports Medicine, [place] [address] 12/08/2025 1:00 PM EDT Office Visit [facility] [address] [place] [address] 3rd Floor, [address] [place] [address] Enrique Garcia, [address] [facility] [address] [place] [address] [email or web address] documented as of this encounter Visit Diagnoses Not on filedocumented in this encounter Additional Health Concerns Assessment Noted Time PHQ-2 Depression Total Score: 0 05/30/20 24 1:04 PM EST documented as of this encounter Care Teams Stable Manager Relationship Specialty Start Date End Date Arturo Iverson MD 22 [facility], [address] [place] [address] [email or web address] PCP - General Internal Medicine 12/18/20 Arturo Iverson MD [address] [facility], [address] [place] [address] [email or web address] Insurance Assigned Provider 09/23/23 documented as of this encounter Additional Source Comments The information contained in this document represents components of the legal health record. It is not the complete legal health record.[facility]
--- OUTSIDE RECORDS SUMMARY | 2025-03-18 13:53 | XMS_ITS | Encounter Summary ---
Author Organization [facility], Address [address] [place] [address] Phone Care Team Providers Care Mail List Processor Name Role Phone Arturo Iverson MD Primary Care Provider [phone] Encounter Details Date Type Department Care Team (Late Contact Info) Description 07/09/2024 Documentation Only [facility] [address] [place] [address] Lorna Josue [address] [place] [phone] Social History Tobacco Use Types Packs/Day Years [...] Visit [facility] [place] Dr Tyler MALDONADO [address] [place] [phone] Ty Lyon MD [address] [place] [address] [place] [phone] documented as of this encounter Visit Diagnoses Not on filedocumented in this encounter Care Teams Mail List Processor Relationship Specialty Start Date End Date Arturo Iverson MD [address] [place] [address], [address] [place] [address] PCP - General 04/23/19 documented as of this encounter
--- OUTSIDE RECORDS SUMMARY | 2025-03-18 13:53 | XMS_ITS | Encounter Summary ---
Author Organization [facility], Address [address] [place] [address] Phone Care Team Providers Care Loadmaster Name Role Phone Arturo Iverson MD Primary Care Provider [phone] Encounter Details Date Type Department Care Team (Late Contact Info) Description 01/02/2024 Documentation Only [facility] [address] [place] [address] Lorna Josue [address] [place] [phone] Social History Tobacco Use Types Packs/Day Years [...] Visit [facility] [place] Dr Tyler MALDONADO [address] [place] [phone] Ty Lyon MD [address] [place] [address] [place] [phone] documented as of this encounter Visit Diagnoses Not on filedocumented in this encounter Care Teams Loadmaster Relationship Specialty Start Date End Date Arturo Iverson MD [address] [place] [address], [address] [place] [address] PCP - General 04/23/19 documented as of this encounter
--- OUTSIDE RECORDS SUMMARY | 2025-03-18 13:53 | XMS_ITS | Encounter Summary ---
Author Organization [facility] Address [address] [place] [address] Phone Care Team Providers Care Centerless Grinder Tender Name Role Phone Arturo Iverson MD Primary Care Provider [phone] Arturo Iverson MD Unavailable [phone] Arturo Iverson MD Primary Care Provider [phone] Encounter Details Date Type Department Care Team (Latest Contact Info) Description 08/24/2017 Transcribe Orders [address] [place] [address] Darshan Tyson MD [address] [place] [address], [address] [place], [place] [id number] [email or web address] Essential hypertension, benign (Primary Dx) Social History Tobacco Use Types [...] Description 06/02/2025 1:00 PM EST Office Visit [address] [place] [address] Arturo Iverson MD [address] [place] [address], [address] [place] [address] 07/04/2025 1:45 PM EST Office Visit [facility] [address] [place] [address] Unknown, Unknown, Nola Hughes, ADALI 10 [place] [address] 07/10/2025 2:15 PM EST Office Visit [facility] [address] [place] [address] Angela Salcedo MD [address] [place] [address] Orthopedics & Sports Medicine, [facility] [place] [address] 12/08/2025 1:00 PM EDT Office Visit [facility] [address] [place] [address] 3rd Floor, [address] [place] [address] Enrique Garcia DO [address] [place] [address] [address] [place] [address] documented as of this encounter Results * (ABNORMAL) Total protein creatinine ratio, random urine (02/28/2018 3:18 PM EDT) URINE TOTAL PROTEIN 5.7 mg/dL [facility] URINE CREATININE 16 mg/dL [facility] URINE TP CRE RATIO 0.36(H) 0 - 0.19 [facility] Urine (Urine) 02/28/2018 3:1 8 PM EDT 02/28/2018 3:22 PM EDT us Darshan Tyson MD URINE ORDERABLES Final Result [facility] [address] [place] [address] * (ABNORMAL) CBC and differential (02/28/2018 1:39 PM EDT) WBC 8.65 3.40 - 11.20 K/uL [facility] RBC 4.42 3.80 - 4.80 M/uL [facility] HGB 13.4 12.0 - 15.0 g/dL [facility] HCT 40.7 36.0 - 46.0 % [facility] PLT 364 130 - 400 K/uL [facility] MCV 92.1 79.0 - 98.0 fL [facility] MCH 30.3 27.0 - 34.8 pg [facility] MCHC 32.9 31.5 - 36.0 g/dL [facility] RDW 13.9 10.8 - 14.6 % [facility] MPV 10.0 9.4 - 12.4 fl [facility] NRBC 0.00 /100 WBCs [facility] ABSOLUTE NRBC 0.00 K/uL [facility] DIFF METHOD Auto [facility] NEUTS 67.0 45.30 - 77.70 % [facility] LYMPHS 21.2 12.30 - 39.70 % [facility] MONOS 8.6 4.10 - 12.80 % [facility] EOS 1.8 0 - 7.2 % [facility] BASOS 0.9 0 - 2.80 % [facility] Granulocytes, immature (%) 0.5 0.0 - 0.9 % [facility] ABSOLUTE NEUTS 5.80 1.40 - 7.70 K/uL [facility] ABSOLUTE LYMPHS 1.83 0.60 - 3.20 K/uL [facility] ABSOLUTE MONOS 0.74(H) 0.11 - 0.59 K/uL [facility] ABSOLUTE EOS 0.16 0.01 - 0.50 K/uL [facility] ABSOLUTE BASOS 0.08 0.00 - 0.08 K/uL [facility] Granulocytes, immature 0.04 0.00 - 0.05 K/uL [facility] Blood 02/28/2018 1:39 PM EDT 02/28/2018 2:17 PM EDT us Darshan Tyson MD LAB BLOOD ORDERABLES Final Re sult Performing Organization Address [facility] Co de Phone Number [address] [address] * Albumin (02/28/2018 1:39 PM EDT) ALBUMIN 4.6 3.9 - 4.8 g/dL [facility] Blood 02/28/2018 1:39 PM EDT 02/28/2018 2:17 PM EDT us Darshan Tyson MD LAB BLOOD ORDERABLES Final Re sult Performing Organization Address [facility] Co de Phone Number [address] [address] * Magnesium (02/28/2018 1:39 PM EDT) MAGNESIUM 1.9 1.6 - 2.6 mg/dL [facility] Blood 02/28/2018 1:39 PM EDT 02/28/2018 2:17 PM EDT us Darshan Tyson MD LAB BLOOD ORDERABLES Final Re sult Performing Organization Address [facility] Co de Phone Number [address] [address] * Phosphorus (02/28/2018 1:39 PM EDT) PHOSPHORUS 3.8 2.7 - 4.5 mg/dL [facility] Blood 02/28/2018 1:39 PM EDT 02/28/2018 2:17 PM EDT us Darshan Tyson MD LAB BLOOD ORDERABLES Final Re sult Performing Organization Address [facility]/ZIP Co de Phone Number [address] [address] * (ABNORMAL) Basic metabolic panel (02/28/2018 1:39 PM EDT) SODIUM 139 133 - 146 mmol/L [facility] CHLORIDE 100 96 - 108 mmol/L [facility] POTASSIUM 3.8 3.3 - 5.1 mmol/L [facility] CO2 24 21 - 35 mmol/L [facility] BUN 22(H) 6 - 19 mg/dL [facility] CREATININE 1.30 0.5 - 1.5 mg/dL [facility] GLUCOSE 93 70 - 99 mg/dL [facility] CALCIUM 9.8 8.4 - 10.3 mg/dL [facility] EGFR 43(L) >59 mL/min/1.7 3m2 [facility] Comment:If patient is black, multiply result by 1.159. Estimated glomerular filtration rate calculated using the CKD-EPI equation. ANION GAP 19 10 - 20 mmol/L [facility] Blood 02/28/2018 1:39 PM EDT 02/28/2018 2:17 PM EDT Darshan Tyson MD LAB BLOOD ORDERABLES Final Re sult Performing Organization Address [facility] Co de Phone Number [address] [address] * (ABNORMAL) Parathyroid hormone (PTH) (02/28/2018 1:39 PM EDT) PARATHYROID HORMONE 72(H) 15 - 65 pg/mL [facility] Blood 02/28/2018 1:39 PM EDT 02/28/2018 2:16 PM EDT Darshan Tyson MD LAB BLOOD ORDERABLES Final Re sult Performing Organization Address [facility]/ZIP Co de Phone Number [address] [address] * (ABNORMAL) Total protein creatinine ratio, random urine (01/15/2018 9:55 AM EDT) URINE TOTAL PROTEIN 8.9 mg/dL [facility] URINE CREATININE 24 mg/dL [facility] URINE TP CRE RATIO 0.37(H) 0 - 0.19 [facility] Urine (Urine) 01/15/2018 9:5 5 AM EDT 01/15/2018 10:04 AM EDT us Darshan Tyson MD URINE ORDERABLES Final Result [facility] [address] [place], [place] [id number] * (ABNORMAL) CBC and differential (01/15/2018 9:46 AM EDT) WBC 8.61 3.40 - 11.20 K/uL [facility] RBC 3.90 3.80 - 4.80 M/uL [facility] HGB 11.8(L) 12.0 - 15.0 g/dL [facility] HCT 35.9(L) 36.0 - 46.0 % [facility] PLT 404(H) 130 - 400 K/uL [facility] MCV 92.1 79.0 - 98.0 fL [facility] MCH 30.3 27.0 - 34.8 pg [facility] MCHC 32.9 31.5 - 36.0 g/dL [facility] RDW 15.6(H) 10.8 - 14.6 % [facility] MPV 10.1 9.4 - 12.4 fl [facility] NRBC 0.00 /100 WBCs [facility] ABSOLUTE NRBC 0.00 K/uL [facility] DIFF METHOD Auto [facility] NEUTS 64.0 45.30 - 77.70 % [facility] LYMPHS 21.4 12.30 - 39.70 % [facility] MONOS 8.1 4.10 - 12.80 % [facility] EOS 4.5 0 - 7.2 % [facility] BASOS 1.2 0 - 2.80 % [facility] Granulocytes, immature (%) 0.8 0.0 - 0.9 % [facility] ABSOLUTE NEUTS 5.51 1.40 - 7.70 K/uL [facility] ABSOLUTE LYMPHS 1.84 0.60 - 3.20 K/uL [facility] ABSOLUTE MONOS 0.70(H) 0.11 - 0.59 K/uL [facility] ABSOLUTE EOS 0.39 0.01 - 0.50 K/uL [facility] ABSOLUTE BASOS 0.10(H) 0.00 - 0.08 K/uL [facility] Granulocytes, immature 0.07(H) 0.00 - 0.05 K/uL [facility] Blood 01/15/2018 9:46 AM EDT 01/15/2018 9:51 AM EDT Darshan yTson MD LAB BLOOD ORDERABLES Final Re sult Performing Organization Address [facility] Co de Phone Number [address] [address] * Albumin (01/15/2018 9:46 AM EDT) ALBUMIN 4.2 3.9 - 4.8 g/dL [facility] Blood 01/15/2018 9:46 AM EDT 01/15/2018 9:51 AM EDT Darshan Tyson MD LAB BLOOD ORDERABLES Final Re sult Performing Organization Address City/[facility] Co de Phone Number [address] [address] * Magnesium (01/15/2018 9:46 AM EDT) MAGNESIUM 1.9 1.6 - 2.6 mg/dL [facility] Blood 01/15/2018 9:46 AM EDT 01/15/2018 9:51 AM EDT Darshan Tyson MD LAB BLOOD ORDERABLES Final Re sult Performing Organization Address City/[facility]/ZIP Co de Phone Number [address] [address] * Phosphorus (01/15/2018 9:46 AM EDT) PHOSPHORUS 3.8 2.7 - 4.5 mg/dL [facility] Blood 01/15/2018 9:46 AM EDT 01/15/2018 9:51 AM EDT us Darshan Tyson MD LAB BLOOD ORDERABLES Final Re sult Performing Organization Address City/[facility]/ZIP Co de Phone Number [address] [address] * (ABNORMAL) Basic metabolic panel (01/15/2018 9:46 AM EDT) [facility] SODIUM 141 133 - 146 mmol/L [facility] CHLORIDE 100 96 - 108 mmol/L [facility] POTASSIUM 4.1 3.3 - 5.1 mmol/L [facility] CO2 27 21 - 35 mmol/L [facility] BUN 24(H) 6 - 19 mg/dL [facility] CREATININE 1.40 0.5 - 1.5 mg/dL [facility] GLUCOSE 116(H) 70 - 99 mg/dL [facility] CALCIUM 9.8 8.4 - 10.3 mg/dL [facility] EGFR 39(L) >59 mL/min/1.7 3m2 [facility] Comment:If patient is black, multiply result by 1.159. Estimated glomerular filtration rate calculated using the CKD-EPI equation. ANION GAP 18 10 - 20 mmol/L [facility] Blood 01/15/2018 9:46 AM EDT 01/15/2018 9:51 AM EDT us Darshan Tyson MD LAB BLOOD ORDERABLES Final Re sult Performing Organization Address City/[facility]/ZIP Co de Phone Number [address] [address] * (ABNORMAL) Parathyroid hormone (PTH) (01/15/2018 9:46 AM EDT) PARATHYROID HORMONE 69(H) 15 - 65 pg/mL [facility] Blood 01/15/2018 9:46 AM EDT 01/15/2018 9:51 AM EDT Darshan Tyson MD LAB BLOOD ORDERABLES Final Re sult Performing Organization Address City/[facility]/ZIP Co de Phone Number [address] [address] * Total protein creatinine ratio, random urine (08/24/2017 1:57 PM EST) URINE TOTAL PROTEIN <4.0 mg/dL [facility] URINE CREATININE 10 mg/dL [facility] URINE TP CRE RATIO NOT CALCULATED 0 - 0.19 [facility] Urine (Urine) 08/24/2017 1:5 7 PM EST 08/24/2017 2:01 PM EST Darshan Tyson MD URINE ORDERABLES Final Result Performing Organization Address [facility] Co de Phone Number [address] [address] * (ABNORMAL) CBC and differential (08/24/2017 1:57 PM EST) WBC 12.77(H) 3.40 - 11.20 K/uL [facility] RBC 3.34(L) 3.80 - 4.80 M/uL [facility] HGB 10.5(L) 12.0 - 15.0 g/dL [facility] HCT 31.6(L) 36.0 - 46.0 % [facility] PLT 419(H) 130 - 400 K/uL [facility] MCV 94.6 79.0 - 98.0 fL [facility] MCH 31.4 27.0 - 34.8 pg [facility] MCHC 33.2 31.5 - 36.0 g/dL [facility] RDW 14.2 10.8 - 14.6 % [facility] MPV 10.0 9.4 - 12.4 fl [facility] NRBC 0.00 /100 WBCs [facility] ABSOLUTE NRBC 0.00 K/uL [facility] DIFF METHOD Auto [facility] NEUTS 65.7 45.30 - 77.70 % [facility] LYMPHS 21.1 12.30 - 39.70 % [facility] MONOS 9.5 4.10 - 12.80 % [facility] EOS 2.3 0 - 7.2 % [facility] BASOS 0.8 0 - 2.80 % [facility] Granulocytes, immature (%) 0.6 0.0 - 0.9 % [facility] ABSOLUTE NEUTS 8.40(H) 1.40 - 7.70 K/uL [facility] ABSOLUTE LYMPHS 2.69 0.60 - 3.20 K/uL [facility] ABSOLUTE MONOS 1.21(H) 0.11 - 0.59 K/uL [facility] ABSOLUTE EOS 0.29 0.01 - 0.50 K/uL [facility] ABSOLUTE BASOS 0.10(H) 0.00 - 0.08 K/uL [facility] Granulocytes, immature 0.08(H) 0.00 - 0.05 K/uL [facility] Blood 08/24/2017 1:57 PM EST 08/24/2017 2:00 PM EST Darshan Tyson MD LAB BLOOD ORDERABLES Final Re sult [address] [address] * Albumin (08/24/2017 1:57 PM EST) ALBUMIN 3.9 3.9 - 4.8 g/dL [facility] Blood 08/24/2017 1:57 PM EST 08/24/2017 2:00 PM EST Darshan Tyson MD LAB BLOOD ORDERABLES Final Re sult [address] [address] * Magnesium (08/24/2017 1:57 PM EST) MAGNESIUM 1.7 1.6 - 2.6 mg/dL [facility] Blood 08/24/2017 1:57 PM EST 08/24/2017 2:00 PM EST us Darshan Tyson MD LAB BLOOD ORDERABLES Final Re sult Performing Organization Address City/[facility]/ZIP Co de Phone Number [address] [address] * Phosphorus (08/24/2017 1:57 PM EST) PHOSPHORUS 3.3 2.7 - 4.5 mg/dL [facility] Blood 08/24/2017 1:57 PM EST 08/24/2017 2:00 PM EST Darshan Tyson MD LAB BLOOD ORDERABLES Final Re sult Performing Organization Address [facility] Co de Phone Number [address] [address] * (ABNORMAL) Basic metabolic panel (08/24/2017 1:57 PM EST) SODIUM 132(L) 133 - 146 mmol/L [facility] CHLORIDE 94(L) 96 - 108 mmol/L [facility] POTASSIUM 3.5 3.3 - 5.1 mmol/L [facility] CO2 24 21 - 35 mmol/L [facility] BUN 16 6 - 19 mg/dL [facility] CREATININE 1.00 0.5 - 1.5 mg/dL [facility] GLUCOSE 70 70 - 99 mg/dL [facility] CALCIUM 8.7 8.4 - 10.3 mg/dL [facility] EGFR 59(L) >59 mL/min/1.7 3m2 [facility] Comment:If patient is black, multiply result by 1.159. The eGFR calculation has changed from the MDRD equation to the CKD-EPI equation as of August 22, 2017. ANION GAP 18 10 - 20 mmol/L [facility] Blood 08/24/2017 1:57 PM EST 08/24/2017 2:00 PM EST Darshan Tyson MD LAB BLOOD ORDERABLES Final Re sult Performing Organization Address City/[facility]/ZIP Co de Phone Number [address] [address] * (ABNORMAL) Parathyroid hormone (PTH) (08/24/2017 1:57 PM EST) PARATHYROID HORMONE 92(H) 15 - 65 pg/mL [facility] Blood 08/24/2017 1:57 PM EST 08/24/2017 2:00 PM EST Darshan Tyson MD LAB BLOOD ORDERABLES Final Re sult Performing Organization Address [facility] Co de Phone Number [address] [address] documented in this encounter Visit Diagnoses Diagnosis Essential hypertension, benign- Primary documented in this encounter Additional Health Concerns Infection Onset Date Last Indicated Resolved Time CoV-Risk 08/27/2021 09/01/2021 09/12/2021 1:21 AM EDT documented as of this encounter Care Teams Centerless Grinder Tender Relationship Specialty Start Date End Date Arturo Iverson MD [address] [place] [address] [email or web address] PCP - General 04/14/17 12/17/20 Arturo Iverson MD [address] [place] [address], [address] [address] PCP - General Internal Medicine 12/18/20 Arturo Iverson MD [address] [place] [address], [address] [address] Insurance Assigned Provider 09/23/23 documented as of this encounter Additional Source Comments The information contained in this document represents components of the legal health record. It is not the complete legal health record.[facility]
--- OUTSIDE RECORDS SUMMARY | 2025-03-18 13:53 | XMS_ITS | Encounter Summary ---
Author Organization [facility] Address [address] [place] [address] Phone Care Team Providers Care Contracts Attorney Name Role Phone Arturo Iverson MD Primary Care Provider [phone] Arturo Iverson MD Unavailable [phone] Arturo Iverson MD Primary Care Provider [phone] Encounter Details Date Type Department Care Team (Late st Contact Info) Description 02/07/2020 Transcribe Orders [facility] [address] [place] [address] Arturo Iverson MD [address] [facility], [address] [place] [address] [email or web address] Social History Tobacco Use Types Packs/Day Years [...] Description 06/02/2025 1:00 PM EST Office Visit [facility] Medicine [address] [place] [address] [place] [address] Arturo Iverson MD [address] [place] [address], [address] [place] [address] 07/04/2025 1:45 PM EST Office Visit [facility] [address] [place] [address] Unknown, Unknown, Nola Hughes, ADALI [address] [place] [address] 07/10/2025 2:15 PM EST Office Visit [facility] [address] [place] [address] Angela Salcedo MD [address] [place] [address] Orthopedics & Sports Medicine, [place] [address] 12/08/2025 1:00 PM EDT Office Visit [facility] [address] [place] [address] 3rd Floor, [address] [place] [address] Enrique Garcia DO [address] [place] [address] documented as of this encounter Visit Diagnoses Not on filedocumented in this encounter Additional Health Concerns Infection Onset Date Last Indicated Resolved Time CoV-Risk 08/27/2021 09/01/2021 09/12/2021 1:21 AM EDT Assessment Noted Time PHQ-2 Depression Total Score: 0 02/06/20 20 3:42 PM EDT documented as of this encounter Care Teams Contracts Attorney Relationship Specialty Start Date End Date Arturo Iverson MD [address] [place] [address] [address] [place] [address] [email or web address] PCP - General 04/14/17 12/17/20 Arturo Iverson MD [address] [facility] [place] [address] [email or web address] PCP - General Internal Medicine 12/18/20 Arturo Iverson MD [address] [facility] [place] [address] [email or web address] Insurance Assigned Provider 09/23/23 documented as of this encounter Additional Source Comments The information contained in this document represents components of the legal health record. It is not the complete legal health record.[facility]
--- OUTSIDE RECORDS SUMMARY | 2025-03-18 13:53 | XMS_ITS | Clinical Summary ---
Author Organization [facility], Address [address] [facility] [address] [place] [address] Phone Care Team Providers Care Data Capture Specialist Name Role Phone Arturo Iverson MD Primary Care Provider [phone] Allergies Active Allergy Reactions Criticality Noted Date Comments Cyclobenzaprine 08/10/2017 Lamotrigine Rash Low 08/17/2017 Metoclopramide 08/10/2017 ? NMS Nsaids Other (see comments) 07/29/2019 Pollen Extract Low 08/10/2017 Medications ziprasidone (GEODON) 20 MG capsule Take 20 mg by mouth in the morning and 20 mg in the evening. 10/05/19 17 Active triazolam (HALCION) 0.25 MG tablet Take 1 tablet by mouth at bed time 05/02/20 16 Active oxyCODONE (ROXICODONE) 5 MG immediate release tablet 07/04/19 20 Active loratadine (CLARITIN) 10 MG tablet Take 1 tablet by mouth 1 (one) time each day 05/08/20 17 Active fluticasone (FLONASE) 50 MCG/ACT nasal spray Administer 1 spray into each nostril 1 (one) time each day 10/18/19 17 Active EPINEPHrine (EPIPEN) 0.3 MG/0.3ML injection syringe Comments: Filled Date: Oct 18 2016 12:00AM 10/19/19 17 Active clonazePAM (KlonoPIN) 0.5 MG tablet 07/04/19 20 Active buPROPion (WELLBUTRIN) 75 MG tablet Take 75 mg by mouth in the morning and 75 mg in the evening. 06/09/20 19 Active amLODIPine (NORVASC) 5 MG tablet Take 1 tablet by mouth 1 (one) time each day 12/17/19 17 Active Omeprazole 20 MG Tablet Delayed Release Dispersible Take 1 capsule by mouth 1 (one) time each day 10/18/19 17 Active Multiple Vitamins-Minera ls (MULTIVITAMIN ADULT PO) Take 1 tablet by mouth daily Active Cholecalciferol (VITAMIN D) 125 MCG (5000 UT) capsule Take 5,000 Units by mouth daily Active B complex tablet Take 1 tablet by mouth 1 (one) time each day Active omega-3 (FISH OIL) 1000 MG capsule Take 1,000 mg by mouth 1 (one) time each day Active gabapentin (NEURONTIN) 300 MG capsule Take 600-900 mg by mouth in the morning and 600-900 mg in the evening. 10/10/19 20 Active levothyroxine (SYNTHROID, LEVOTHROID) 75 MCG tablet Take 75 mcg by mouth 1 (one) time each day in the morning 04/05/20 20 Active nicotine (NICODERM CQ) 14 MG/24HR APPLY 1 PATCH ONTO THE SKIN EVERY DAY 04/03/20 20 Active morphine (MS CONTIN) 15 MG 12 hr tablet Take 15 mg by mouth 2 (two) times a day if needed 05/27/20 20 Active OxyCONTIN 10 MG 12 hr abuse-deterrent tablet 11/03/19 21 Active cyanocobalamin (VITAMIN B-12) 50 MCG tablet Take 50 mcg by mouth 1 (one) time each day Active Lactobacillus Rhamnosus, GG, capsule Take 1 capsule by mouth daily 12/31/19 22 Active zolpidem (AMBIEN) 10 MG tablet Take 1 tablet by mouth at bed time 03/07/20 22 Active amoxicillin (AMOXIL) 500 MG capsule TAKE 1 CAPSULE BY MOUTH EVERY 6 HOURS UNTIL FINISHED 07/01/19 23 Active albuterol HFA (PROVENTIL HFA;VENTOLIN HFA) 108 (90 Base) MCG/ACT inhaler TAKE 2 PUFFS BY MOUTH EVERY 4 HOURS NEEDED 06/30/19 23 Active cetirizine (ZyrTEC) 10 MG tablet Take 1 tablet by mouth in the morning and 1 tablet at noon and 1 tablet in the evening. 11/17/19 23 Active hydroCHLOROthia zide (MICROZIDE) 12.5 MG capsule Take 1 capsule (12.5 mg total) by mouth 1 (one) time each day 90 capsule 5 07/10/19 24 Active losartan (COZAAR) 25 MG tablet TAKE 1 TABLET BY MOUTH AT BED TIME. 90 tablet 3 03/05/20 25 Active losartan (COZAAR) 25 MG tablet Take 1 tablet (25 mg total) by mouth at bed time 90 tablet 3 03/11/20 24 025 Discontinued Active Problems Problem Noted Date Diagnosed Date Smoker 07/12/2024 Stage 3a chronic kidney disease 07/05/2022 Proteinuria 03/14/2022 Stage 3b chronic kidney disease 05/17/2021 Anemia in chronic kidney disease 07/29/2019 Overview (05/07/2021): Last Assessment & Plan: Due for labs, follow-up pending results Secondary hyperparathyroidism of renal origin Overview (05/07/2021): Last Assessment & Plan: Secondary to CKD, followed by Dr. Tyson. Last Assessment & Plan: Secondary to CKD, followed by Dr. Tyson. Last Assessment & Plan: Previously stable, followed by nephrology. Hyperlipidemia 07/15/2017 Overview (05/07/2021): Last Assessment & Plan: Stable, continue current regimen. Last Assessment & Plan: Stable, continue current regimen. Last Assessment & Plan: Patient is advised to have lipid testing next spring. She does not want to do fasting lab as this would conflict with recommendations from nephrology for her lab testing. Retention of urine 07/14/2017 Overview (05/07/2021): Last Assessment & Plan: Would strongly suggest removing soriano and doing a voiding trial. Last Assessment & Plan: Would strongly suggest removing soriano and doing a voiding trial. Last Assessment & Plan: Would strongly suggest removing soriano and doing a voiding trial. Hypothyroidism 07/14/2017 Overview (05/07/2021): Last Assessment & Plan: Previously stable, she is due for thyroid testing now. Labs ordered. Essential hypertension 04/21/2017 Overview (05/07/2021): Last Assessment & Plan: Stable, continue current regimen. Hypernatremia Hypokalemia Resolved Problems Problem Noted Date Diagnosed Date Resolved Date Stage 3b chronic kidney disease 06/08/2020 06/09/2020 Overview (06/22/2020): Update for Diagnosis Load Proteinuria 07/29/2019 03/14/2022 Chronic kidney disease 07/14/201706/08 Overview (07/29/2019): Last Assessment & Plan: Stable CKD based on labs. Encounters Date Type Department Care Team Description 03/10/2025 Orders Only [facility] [address] [place] [address] Lorna Josue Stage 3b chronic kidney disease (HCC) (Primary Dx); Anemia in chronic kidney disease; Vitamin D deficiency, not otherwise specified 03/05/2025 Refill [facility] [address] [place] [address] Ty Lyon MD from Last 3 Months Immunizations Immunization Administration Dates Next Due Influenza (IM) Preservative Free 03/16/2016 Influenza Split High Dose Pr eservative Free IM 02/12/2022,02/10/2020,03/27/2019,03/05,03/07/2017,05/08/2015 Influenza Split Preservative Free ID 04/01/2014, 02/21/2013 Influenza TIV (IM) 04/18/2012,03/18/2011 Influenza, Quadrivalent, Wit h Preservative 02/10/2020 Influenza, Unspecified 03/09/2021 Pfizer SARS-COV-2 09/23/2020,08/28/2020 Pneumococcal Conjugate 13-Valent 06/14/2016 Pneumococcal Polysaccharide 05/08/2015 Td 02/04/2019 Zoster 04/15/2020,02/05/2020 Family History Medical History Relation Comments Stroke Father Cancer Mother Diabetes Mother Hypertension Mother Diabetes Sibling 1 Hypertension Sibling 1 Diabetes Sibling 2 x2 Hypertension Sibling 3 x2 Relation Status Comments Father Mother Sibling 1 Sibling 2 Sibling 3 Social History Tobacco Use Types Packs/Day Years Used Date Smoking Tobacco: Former Alcohol Use Standard Drinks/Week Comments No 0 (1 standard drink = 0.6 oz pur e alcohol) Comments Unknown Sex and Gender Information Value Date Recorded Sex Assigned at Not on file Legal Sex Female 4:35 PM EST Gender Identity Not on file Sexual Orientation Not on file Last Filed Vital Signs Vital Sign Reading Time Taken Comments Blood Pressure 118/55 01/04/2023 1:55 PM EDT Pulse 66 01/04/2023 1:55 PM EDT Temperature 36.7 C (98 F) 08/13/2019 2:28 PM EST Respiratory Rate 14 01/04/2023 1:55 PM EDT Oxygen Saturation - - Inhaled Oxygen Concentration - - Weight 62.6 kg (138 lb) 01/04/2023 1:55 PM EDT Height 160 cm (5' 3 ) 01/04/2023 1:55 PM EDT Body Mass Index 24.45 01/04/2023 1:55 PM EDT Plan of Treatment Upcoming Encounters Date Type Department Care Team (Late st Contact Info) Description 07/11/2025 11:00 AM EST Office Visit [facility] [address] [place] [address] Ty Lyon MD [address] [place] [address] Health Maintenance Due Date Last Done Comments Breast Cancer Screening 1950 Colorectal Cancer Screening: Annual FOBT 2000 Colorectal Cancer Screening: Colonoscopy 2000 Colorectal Cancer Screening: Sigmoidoscopy 2000 Pneumococcal Vaccine: 50+ Years (3 of 3 - PCV20 or PCV21) 05/08/2020 06/14/2016, 05/08/2015 Influenza Vaccine (#1) 2025 4, 02/12/2022, 03/09/2021, Additional history exists Pneumococcal Vaccine: Peds (0 to 5 Years) and At-Risk Patients (6 to 49 Years) Discontinued 06/14/2016, 05/08/2015 Hepatitis B Vaccine Aged Out No longe r eligible based on patient's age to complete this topic Insurance Medicare Medicaid [place] Care Teams Data Capture Specialist Relationship Specialty Start Date End Date Arturo Iverson MD [address] [place] [address] [address] [place] [address] PCP - General 04/23/19
--- OUTSIDE RECORDS SUMMARY | 2025-03-18 13:53 | XMS_ITS | Encounter Summary ---
Author Organization [facility], Address [address] [place] [address] Phone Care Team Providers Care Mentally Impaired Teacher Name Role Phone Arturo Iverson MD Primary Care Provider [phone] Encounter Details Date Type Department Care Team (Late Contact Info) Description 01/03/2024 Documentation Only [facility] [address] [place] [address] Lorna Josue [address] [place] [phone] Social History Tobacco Use Types Packs/Day Years [...] Visit [facility] [place] [address] Tyler [address] [place] [phone] Ty Lyon MD [address] [place] [address] [place] [phone] documented as of this encounter Visit Diagnoses Not on filedocumented in this encounter Care Teams Mentally Impaired Teacher Relationship Specialty Start Date End Date Arturo Iverson MD [address] [place] [address], [address] [place] [address] PCP - General 04/23/19 documented as of this encounter
--- OUTSIDE RECORDS SUMMARY | 2025-03-18 13:53 | XMS_ITS | Clinical Summary ---
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 History Relation Comments Diabetes Brother 1 Hypertension Brother 1 Melanoma Brother 1 Parkinson's disease Father Pneumonia Father Cancer Mother Colon cancer Mother Diabetes Mother Hypertension Mother Breast cancer Sister Relation Status Comments Brother 1 Brother 2 Alive Daughter Alive Father Grandson Alive Mother Sister Alive Social History Tobacco Use Types Packs/Day Years Used Date Smoking Tobacco: Some Days Cigarettes 0.3 60.7 Started: 1964 Smokeless Tobacco: Never Tobacco Cessation:Ready to Q uit: Not Asked; Counseling Given: Not Answered Comments: LIGHT SMOKER wearing patch-forgets often. The patch helps. Alcohol Use [...] Orientation Straight 09/25/2017 6: 02 PM EDT Last Filed Vital Signs Vital Sign Reading Time Taken Comments Blood Pressure 104/62 01/16/2025 11:26 AM EDT Pulse 77 01/16/2025 11:26 AM EDT Temperature 36.7 C (98.1 F) 01/16/2025 11:26 AM EDT Respiratory Rate 20 01/04/2025 11:4 8 AM EDT Oxygen Saturation 96% 01/16/2025 11: 26 AM EDT Inhaled Oxygen Concentration - - Weight 53.1 kg (117 lb) 01/16/2025 11:2 6 AM EDT patient reported. Height 161.3 cm (5' 3.5 ) 01/16/2025 11 :26 AM EDT Body Mass Index 20.4 01/16/2025 11:26 AM EDT Plan of Treatment Upcoming Encounters Date Type Department Care Team (Late st Contact Info) Description 06/02/2025 1:00 PM EST Office Visit [facility] [address] [place] [address] Mami Forde MD [address] [facility], [address] [place] [address] 07/04/2025 1:45 PM EST Office Visit [facility] [address] [place] [address] Unknown, Unknown, Nola Hughes, ADALI [address] [place] [address] 07/10/2025 2:15 PM EST Office Visit [facility] Medicine [address] [place] [address] Angela Salcedo MD [address] [place] [address] Orthopedics & Sports Medicine, [facility] [place], [place] [id number] 12/08/2025 1:00 PM EDT Office Visit [facility] [address] [place] [address] 3rd Floor, [address] [place] [address] Enrique Garcia DO [address] [facility] [address] [place] [address] Health Maintenance Due Date Last Done Comments COLOGUARD 1996 FIT TEST 1996 FOBT 1996 SIGMOIDOSCOPY 1996 VIRTUAL COLONOSCOPY 1996 INFLUENZA VACCINE (#1) 2025 , 02/17/2023, 02/17/2023, Additional history exists DEPRESSION SCREENING 05/30/2025 05/30/2024 BLOOD PRESSURE 07/19/2025 01/16/2025 CREATININE LEVEL 09/27/2025 09/27/2024, , 06/05/2024, Additional history exists POTASSIUM LEVEL 09/27/2025 09/27/2024, 06/19, 06/05/2024, Additional history exists TSH LEVEL 09/27/2025 09/27/2024, 05/19, 10/04/2023, Additional history exists MAMMOGRAM 12/13/2025 12/14/2023, 10/0 07/2019, 01/29/2018 SMOKING Hx and SMOKELESS TOBACCO SCREENING 01/16/2026 01/16/2025 COLONOSCOPY 11/06/2028 11/06/2018, 08/15/2012 COLORECTAL CANCER SCREENING 11/06/2028 LIPID PANEL 09/27/2029 09/27/2024, 05/19, 05/30/2023, Additional history exists Adult Td,Tdap Booster 01/04/2035 01/04/2025, 019 OSTEOPOROSIS SCREENING INITIAL (ONE-TIME) Completed 09/07/2018, 03/07/2013 HEPATITIS C SCREENING Completed 04/30/2020, 020 RSV VACCINE Completed 03/18/2023 COVID-19 VACCINE Completed 11/14/2024, , 09/30/2023, Additional history exists HEPATITIS A VACCINES Aged Out No long er eligible based on patient's age to complete this topic HIB VACCINES Aged Out No longer eligi ble based on patient's age to complete this topic MENINGOCOCCAL VACCINES (ACWY) Aged Out No longer eligible based on patient's age to complete this topic MENINGOCOCCAL VACCINES (B) Aged Out N o longer eligible based on patient's age to complete this topic Medical Devices Not on file Procedures Procedure Name Priority Date/Time Associated Diagnosis Comments XR KNEE 4 OR MORE VIEWS (LEFT) Urgent/patient waiting 01/04/2025 12:30 PM EDT Left knee injury, initial encounter LIPID PANEL Routine 09/27/2024 9:38 AM EDT Acquired hypothyroidism Constipation, unspecified constipation type TSH Routine 09/27/2024 9:38 AM EDT Acquired hypothyroidism Constipation, unspecified constipation type COMPREHENSIVE METABOLIC PANEL Routine 09/27/2024 9:38 AM EDT Acquired hypothyroidism Constipation, unspecified constipation type BI MAMMOGRAM DIAGNOSTIC WITH TOMOSYNTHESIS WITH CAD (BILATERAL) Urgent/patient waiting 12/14/2023 1:05 PM EDT Breast pain, left HEPATITIS C ANTIBODY, QUALITATIVE Routine 04/30/2020 9:22 AM EST Encounter for hepatitis C screening test for low risk patient ENDOSCOPY, COLON 11/06/2018 11:4 8 AM EDT BD DXA AXIAL (SPINE) WITH HIP Routine 09/07/2018 3:14 PM EDT Postmenopausal from Last 3 Months or Most Recently Relevant to Health Maintenance Results * XR KNEE 4 OR MORE VIEWS (LEFT) (01/04/2025 12:30 PM EDT) Anatomical Region Laterality Modality Knee Left Computed Radiogr aphy 01/04/2025 1:04 PM EDT Impressions 01/04/2025 1:05 PM EDT No fracture or dislocation. Narrative 01/04/2025 1:05 PM EDT XR KNEE 4 OR MORE VIEWS (LEFT) Referring clinician's provided indication for this examination in [facility]: Pain; Trauma; S/P Fall; Patient reports she was hiking last night when she tripped and fell onto rocks and sticks injuring her left knee. Endorses is pain to the patella and the lateral side of knee. Small effusion noted. COMPARISON: XR KNEE 4 OR MORE VIEWS (LEFT) FINDINGS: Left Knee: No fracture. Normal alignment. Mild joint space narrowing, osteophytes, and chondrocalcinosis of the medial compartment. Trace suprapatellar effusion. Procedure Note Day Fuentes MD - 01/04/2025 XR KNEE 4 OR MORE VIEWS (LEFT) Referring clinician's provided indication for this examination in [facility]:Pain; Trauma; S/P Fall; Patient reports she was hiking last night when shetripped and fell onto rocks and sticks injuring her left knee. Endorsesis pain to the patella and the lateral side of knee. Small effusionnoted. COMPARISON: XR KNEE 4 OR MORE VIEWS (LEFT) FINDINGS: Left Knee: No fracture. Normal alignment. Mild joint space narrowing,osteophytes, and chondrocalcinosis of the medial compartment. Tracesuprapatellar effusion. IMPRESSION: No fracture or dislocation. Rosalind Ashely Vance-Parola [facility] IMG XR LOWER EXT REMITY Final Result * (ABNORMAL) Comprehensive metabolic panel (09/27/2024 9:38 AM EDT) SODIUM 140 133 - 146 mmol/L [facility] POTASSIUM 4.1 3.3 - 5.1 mmol/L [facility] CHLORIDE 103 96 - 108 mmol/L [facility] CO2 28 21 - 35 mmol/L [facility] BUN 19 6 - 19 mg/dL [facility] CREATININE 1.30 0.5 - 1.5 mg/dL [facility] GLUCOSE 99 70 - 99 mg/dL [facility] ALBUMIN 4.3 3.9 - 4.8 g/dL [facility] TOTAL PROTEIN 7.0 6.5 - 8.0 g/dL [facility] CALCIUM 9.3 8.4 - 10.3 mg/dL [facility] ALKALINE PHOSPHATASE 93 39 - 117 U/L [facility] TOTAL BILIRUBIN <0.2 0.0 - 1.2 mg/dL [facility] AST 28 0 - 37 U/L [facility] ALT 21 0 - 40 U/L [facility] GLOBULIN 2.7 1 - 4.8 g/dL [facility] EGFR 43(L) >59 mL/min/1.7 3m2 [facility] Comment:Estimated glomerular filtration rate calculated using the CKD-EPI refit equation. ANION GAP 13 10 - 20 mmol/L [facility] Blood 09/27/2024 9:38 AM EDT 09/27/2024 9:42 AM EDT us Nola Franks NP LAB BLOOD ORDER MOISES Final Result [facility] [address] [place] [address] * TSH (09/27/2024 9:38 AM EDT) TSH 1.63 0.27 - 4.20 uIU/mL [facility] Blood 09/27/2024 9:38 AM EDT 09/27/2024 9:42 AM EDT Nola Franks NP LAB BLOOD ORDER MOISES Final Result Performing Organization Address [facility] de Phone Number [address] [address] * Lipid panel (09/27/2024 9:38 AM EDT) HDL 60 mg/dL [facility] Comment: Interpretation <40 mg/dL: Low HDL cholesterol (major risk factor for CHD) Greater than or equal to 60 mg/dL: High HDL cholesterol ( negative risk factor for CHD) HDL - cholesterol is affected by a number of factors, e.g. smoking, excerise, hormones, sex and age. CHOLESTEROL 200 0 - 240 mg/dL [facility] TRIGLYCERIDES 145 30 - 160 mg/dL [facility] LDL 111 50 - 129 mg/dL [facility] Comment: LDL levels in terms of risk for coronary heart disease: <100 mg/dL: Optimal 100-129 mg/dL: Near or above optimal 130-159 mg/dL: Borderline high 160-189 mg/dL: High >190 mg/dL: Very High CARDIAC RISK RATIO 3.3 3.3 - 4.4 C [facility] Blood 09/27/2024 9:38 AM EDT 09/27/2024 9:43 AM EDT Nola Franks NP LAB BLOOD ORDER MOISES Final Result Performing Organization Address [facility] de Phone Number [address] [address] * BI MAMMOGRAM DIAGNOSTIC WITH TOMOSYNTHESIS WITH CAD (BILATERAL) (12/14/2023 1:05 PM EDT) Anatomical Region Laterality Modality Breast Left, Breast Right, Breast Bilateral Bila teral Mammography 12/14/2023 4:12 PM EDT Impressions 12/14/2023 4:27 PM EDT 1. Findings questioned on screening mammography in the left breast do not persist. No mammographic evidence of malignancy on the left. Annual screening mammography is recommended on the left. 2. Benign skin type calcifications on the left. No mammographic evidence of malignancy in the left breast. 3. No mammographic evidence of malignancy in the right breast. BI-RADS 2 BENIGN Results and recommendations were communicated to the patient at time of examination. Narrative 12/14/2023 4:27 PM EDT BI MAMMOGRAM DIAGNOSTIC WITH TOMOSYNTHESIS WITH CAD (BILATERAL), BI US BREAST LIMITED (LEFT) Additional patient information: Palpable area of concern in the left breast. COMPARISON: Comparison is made with relevant prior imaging. Breast composition: There are scattered areas of fibroglandular density. FINDINGS: Right Mammogram: No abnormal masses, suspicious calcifications, or other significant findings are identified mammographically in the right breast. There is no change since previous examination. Left Mammogram: There is no focal or suspicious mammographic correlate for the area of clinical concern. No abnormal masses, suspicious calcifications, or other significant findings are identified mammographically in the left breast. There are skin type calcifications in the inferior breast, grouped calcifications are noted in the 6:00 position, confirmed to be located within the skin by tangential views. Left Ultrasound: Targeted ultrasound was performed in the area of clinical concern as indicated by the patient. No sonographic abnormality is seen. Procedure Note Day Frias MD - 12/14/2023 BI MAMMOGRAM DIAGNOSTIC WITH TOMOSYNTHESIS WITH CAD (BILATERAL), BI USBREAST LIMITED (LEFT) Additional patient information: Palpable area of concern in the leftbreast. COMPARISON: Comparison is made with relevant prior imaging. Breast composition: There are scattered areas of fibroglandular density. FINDINGS: Right Mammogram: No abnormal masses, suspicious calcifications, or other significantfindings are identified mammographically in the right breast. There is nochange since previous examination. Left Mammogram: There is no focal or suspicious mammographic correlate for the area ofclinical concern. No abnormal masses, suspicious calcifications, or othersignificant findings are identified mammographically in the left breast. There are skin type calcifications in the inferior breast, groupedcalcifications are noted in the 6:00 position, confirmed to be locatedwithin the skin by tangential views. Left Ultrasound: Targeted ultrasound was performed in the area of clinicalconcern as indicated by the patient. No sonographic abnormality is seen. IMPRESSION: 1. Findings questioned on screening mammography in the left breast do notpersist. No mammographic evidence of malignancy on the left. Annualscreening mammography is recommended on the left. 2. Benign skin type calcifications on the left. No mammographic evidenceof malignancy in the left breast. 3. No mammographic evidence of malignancy in the right breast. BI-RADS 2 BENIGN Results and recommendations were communicated to the patient at time ofexamination. us Beatriz Dominguez Erik [facility] IMG MG EXAMS Final Res ult * Hepatitis C antibody, qualitative (04/30/2020 9:22 AM EST) HCV NON-REACTIV E NON-REACTI VE [facility] Blood 04/30/2020 9:22 AM EST 04/30/2020 9:36 AM EST us Mami Forde MD LAB BLOOD ORDERABLES Final Res ult [address] [address] * ENDOSCOPY, COLON (11/06/2018 11:48 AM EDT) Narrative Transcriptions Luther Carlos MD - 11/06/2018 11:48 AM EDT Patient Name: Jenna Lord MD:: LUTHER CARLOS MD Procedure Date: 11/06/2018 11:48 AM Date of : 1950 Age: 68 Admit Type: Outpatient Gender: Female Room: [place] [address] Referring MD: MAMI FORDE MD Exam Type: Colonoscopy Indications: High risk colon cancer surveillance: Personal historyof colonic polyps, Last colonoscopy: July 2012 Medications: Monitored Anesthesia Care Procedure: Informed consent was obtained from the patient after discussion of the indications, limitations,alternatives, benefits, and risks of the procedure. Risksspecifically discussed include but are not limited to medication reactions, missed lesions, bleeding, perforation, orthe need for emergent surgery. Throughout the procedure, the patient's blood pressure, pulse, end-tidal CO2, and oxygen saturations were monitored continuously. The Olympus pediatric variable colonoscope [id number]-[id number] was introduced through the anus and advanced to thececum, identified by the appendiceal orifice, ileocecal valveand palpation. The colonoscopy was technically difficultand complex due to significant looping. Successfulcompletion of the procedure was aided by applying abdominalpressure. The patient tolerated the procedure fairly well. The quality of the bowel preparation was adequate. Complications: No immediate complications. Estimated blood loss:None. Findings: The perianal and digital rectal examinations werenormal. Pertinent negatives include no palpable rectallesions. The colon (entire examined portion) was moderately redundant. The hepatic flexure and ascending colon revealed moderately excessive looping. An area of mild melanosis was found in therecto-sigmoid colon, in the sigmoid colon and in the descendingcolon. Retroflexion in the right colon was performed. The exam was otherwise without abnormality on directand retroflexion views. Impression: - Redundant colon. - There was significant looping of the colon. - Melanosis in the colon. - The examination was otherwise normal on direct and retroflexion views. - No specimens collected. Recommendation: - Repeat colonoscopy in 10 years for screening purposes given lack of adenomas on last 2 exams. LUTHER CARLOS MD 11/06/2018 12:21:11 PM This report has been signed electronically. Number of Addenda: 0 Note Initiated On: 11/06/2018 11:48 AM Procedure Code(s): --- Professional --- G0105, Colorectal cancer screening; colonoscopy on individual at high risk --- Technical --- G0105, Colorectal cancer screening; colonoscopy on individual at high risk Diagnosis Code(s): --- Professional --- Z86.010, Personal history of colonic polyps K63.89, Other specified diseases of intestine Q43.8, Other specified congenital malformations of intestine --- Technical --- Z86.010, Personal history of colonic polyps K63.89, Other specified diseases of intestine Q43.8, Other specified congenital malformations of intestine CPT copyright 2016 [employer]. All rights reserved. The codes documented in this report are preliminary and upon physical therapy instructor reviewmay be revised to meet current compliance requirements. [address] [place] [address] Mami Forde MD GI PROCEDURE ORDERABLES Final Result * BD DXA AXIAL (SPINE) WITH HIP (09/07/2018 3:14 PM EDT) Anatomical Region Laterality Modality Bone Density Bone Density 09/07/2018 3:23 PM EDT Impressions 09/07/2018 3:25 PM EDT Continued normal bone mineral density at all 3 sites assessed. S/S: Estrogen deficiency, bone density screening POS - [id number] Narrative 09/07/2018 3:25 PM EDT This is a 68-year-old postmenopausal patient. Evaluation of the lumbar spine and both hips is obtained and appears appropriate. The lumbar spine from L1 through L4 discloses a total bone mineral density of 1.062 g/cm2 with a T-score of 0.1. This is in the normal range. The change in bone mineral density since 03/05/2013 is -3.2% and is significant. The right hip has a total bone mineral density of 0.960 g/cm2 with a T-score of 0.1 this is in the normal range. The change in bone mineral density since 03/05/2013 is 8.4% and is significant. The left hip has a total bone mineral density of 0.965 g/cm2 for a T-score of 0.2. This is in the normal range. The change in bone mineral density since 03/05/2013 is 2.6% and is not significant. Procedure Note Renzo [place] MD - 09/07/2018 This is a 68-year-old postmenopausal patient. Evaluation of the lumbar spine and both hips is obtained and appearsappropriate. The lumbar spine from L1 through L4 discloses a total bone mineral densityof 1.062 g/cm2 with a T-score of 0.1. This is in the normal range. Thechange in bone mineral density since 03/05/2013 is -3.2% and issignificant. The right hip has a total bone mineral density of 0.960 g/cm2 with aT-score of 0.1 this is in the normal range. The change in bone mineraldensity since 03/05/2013 is 8.4% and is significant. The left hip has a total bone mineral density of 0.965 g/cm2 for a T-scoreof 0.2. This is in the normal range. The change in bone mineral densitysince 03/05/2013 is 2.6% and is not significant. IMPRESSION: Continued normal bone mineral density at all 3 sites assessed. S/S: Estrogen deficiency, bone density screening POS - [id number] Angela Dykes MD [facility] BD BONE DENSITY DEXA Final Result from Last 3 Months or Most Recently Relevant to Health Maintenance Insurance MEDIC[place] PART A & [place] [facility] PART [facility] MED[facility] PART A & B HEALTH MEDICARE PART A & B [id number] [place], [place] [id number] MEDICARE PART A & B MEDICARE PART A & B [address] [place] [address] MEDICARE PART A & B [facility] Advance Directives For more information, please contact: [phone] (9AM - 5PM [facility], Monday-Monday) Documents on File Type Date Recorded Patient Molding Process Technician Expl anation Healthcare Proxy 12/18/2017 12:50 PM PROXY * Full Code (Presumed) (Latest Code Status on File) Date Activated Date Inactivated Comments 12/06/2017 10:17 PM 12/15/2017 3:50 PM * Full Code (Presumed) Date Activated Date Inactivated Comments 12/06/2017 8:57 PM 12/06/2017 10:17 PM * Full Code (Presumed) Date Activated Date Inactivated Comments 10/18/2017 2:07 PM 10/25/2017 5:02 PM * Full Code (Confirmed) Date Activated Date Inactivated Comments 07/14/2017 5:38 AM 07/23/2017 7:09 AM Question Answer Comments Code Discussion Comments: med record Healthcare Agents on File Name Relationship Healthcare Agent Relationshi p Communication Crystal Dominguez Daughter .Primary Health Care Agent (Proxy form on file) Care Teams Pulp Machine Operator Relationship Specialty Start Date End Date Mami Forde MD [address] [place] [address], [address] [place] [address] [email or web address] PCP - General Internal Medicine 12/18/20 Mami Forde MD [address] [place] [address], [address] [place] [address] [email or web address] Insurance Assigned Provider 09/23/23 Additional Source Comments The information contained in this document represents components of the legal health record. It is not the complete legal health record.[facility]
--- OUTSIDE RECORDS SUMMARY | 2025-03-18 13:53 | XMS_ITS | Encounter Summary ---
Author Organization [facility] Address [address] [place] [address] Phone Care Team Providers Care Rehabilitation Therapist Name Role Phone Arturo Iverson MD Primary Care Provider [phone] Arturo Iverson MD Unavailable [phone] Arturo Iverson MD Primary Care Provider [phone] Encounter Details Date Type Department Care Team (Late st Contact Info) Description 07/15/2017 Procedure Pass [facility], [address] [address] Social History Tobacco Use Types Packs/Day Years [...] - Inhaled Oxygen Concentration - - Weight 68 kg (150 lb) 07/15/2017 12:42 PM EST Height 160 cm (5' 3 ) 07/15/2017 12:42 PM EST Body Mass Index 26.57 07/15/2017 12:42 PM EST documented in this encounter Plan of Treatment Upcoming Encounters Date Type Department Care Team (Late st Contact Info) Description 06/02/2025 1:00 PM EST Office Visit [facility] [address] [place] [address] Arturo Iverson MD [address] [facility], [address] [place] [address] 07/04/2025 1:45 PM EST Office Visit [facility] [address] [place] [address] Unknown, Unknown, Nola Hughes, DATA OFFICER [address] [place] [address] 07/10/2025 2:15 PM EST Office Visit [facility] [address] [place] [address] Angela Salcedo MD [address] [place] [address] Orthopedics & Sports Medicine, [place] [address] 12/08/2025 1:00 PM EDT Office Visit [facility] [address] Floor, [address] [place] [address] Enrique Garcia DO [address] [facility] [address] [place] [address] documented as of this encounter Visit Diagnoses Not on filedocumented in this encounter Additional Health Concerns Infection Onset Date Last Indicated Resolved Time CoV-Risk 08/27/2021 09/01/2021 09/12/2021 1:21 AM EDT documented as of this encounter Care Teams Rehabilitation Therapist Relationship Specialty Start Date End Date Arturo Iverson MD [address] [facility], [address] [place] [address] [email or web address] PCP - General 04/14/17 12/17/20 Arturo Iverson MD [address] [facility] [place] [address] [email or web address] PCP - General Internal Medicine 12/18/20 Arturo Iverson MD [address] [facility] [place] [address] [email or web address] Insurance Assigned Provider 09/23/23 documented as of this encounter Additional Source Comments The information contained in this document represents components of the legal health record. It is not the complete legal health record.[facility]
--- OUTSIDE RECORDS SUMMARY | 2025-03-18 13:53 | XMS_ITS | Encounter Summary ---
Author Organization [facility], Address [address] [place] [address] Phone Care Team Providers Care Contract Forester Name Role Phone Arturo Iverson MD Primary Care Provider [phone] Encounter Details Date Type Department Care Team (Late Contact Info) Description 12/29/2022 Documentation Only [facility] [address] [place] [address] Darshan Tyson MD Social History Tobacco Use [...] Visit [facility] [address] [place] [address] Ty Lyon MD [address] [place] [address] [place] [phone] documented as of this encounter Visit Diagnoses Not on filedocumented in this encounter Care Teams Contract Forester Relationship Specialty Start Date End Date Arturo Iverson MD [address] [place] [address], [address] [place] [address] PCP - General 04/23/19 documented as of this encounter
--- OUTSIDE RECORDS SUMMARY | 2025-03-18 13:53 | XMS_ITS | Encounter Summary ---
Author Organization [facility] Address [address] [place] [address] Phone Care Team Providers Care Contract Administration Coordinator Name Role Phone Arturo Iverson MD Primary Care Provider [phone] Arturo Iverson MD Unavailable [phone] Arturo Iverson MD Primary Care Provider [phone] Encounter Details Date Type Department Care Team (Late st Contact Info) Description 08/02/2017 Transcribe Orders [facility] Specimen Processing 30 [place] [address] Harris Obrien MD 38 [facility] 204, [address] [place] [address] [email or web address] Hypothyroidism, unspecified type (Primary Dx) Social History Tobacco Use Types [...] 06/02/2025 1:00 PM EST Office Visit [facility] [address] [place] [address] [place] [address] Arturo Iverson MD 22 [facility], [address] [place] [address] 07/04/2025 1:45 PM EST Office Visit [facility] 10 [place] [address] Unknown, Unknown, Nola Hughes, ADALI 10 [place] [address] 07/10/2025 2:15 PM EST Office Visit [facility]ics [facility] Sports Medicine [address] [place] [address] Angela Salcedo MD [address] [place] [address] Orthopedics & Sports Medicine, [facility] [place] [address] 12/08/2025 1:00 PM EDT Office Visit [facility] [address] [place] [address] 3rd Floor, [address] [place] [address] Enrique Garcia DO [address] [place] [address] [place] [address] documented as of this encounter Results * (ABNORMAL) Comprehensive metabolic panel (08/02/2017 4:15 AM EST) SODIUM 144 133 - 146 mmol/L [facility] POTASSIUM 5.0 3.3 - 5.1 mmol/L [facility] CHLORIDE 103 96 - 108 mmol/L [facility] CO2 29 21 - 35 mmol/L [facility] BUN 14 6 - 19 mg/dL [facility] CREATININE 1.10 0.5 - 1.5 mg/dL [facility] GLUCOSE 104(H) 70 - 99 mg/dL [facility] ALBUMIN 3.9 3.9 - 4.8 g/dL [facility] TOTAL PROTEIN 6.6 6.5 - 8.0 g/dL [facility] CALCIUM 10.1 8.4 - 10.3 mg/dL [facility] ALKALINE PHOSPHATASE 100 39 - 117 U/L [facility] TOTAL BILIRUBIN 0.3 0 - 1.2 mg/dL [facility] AST 25 0 - 37 U/L [facility] ALT 36 0 - 40 U/L [facility] GLOBULIN 2.7 1 - 4.8 g/dL [facility] EGFR 50(L) 60 - 1,000 mL/min/1.7 3m2 [facility] Comment:Abnormal if <60. If patient is -French, multiply the result by 1.21. ANION GAP 17 10 - 20 mmol/L [facility] Blood 08/02/2017 4:15 AM EST 08/02/2017 6:17 AM EST us Harris Obrien MD LAB BLOOD ORDERABLES Final Resul t Performing Organization Address City/State/RUST Co de Phone Number [facility] 30 [place] [address] * (ABNORMAL) CBC (08/02/2017 4:15 AM EST) WBC 11.31(H) 3.40 - 11.20 K/uL [facility] RBC 3.94 3.80 - 4.80 M/uL [facility] HGB 12.0 12.0 - 15.0 g/dL [facility] HCT 36.8 36.0 - 46.0 % [facility] PLT 560(H) 130 - 400 K/uL [facility] MCV 93.4 79.0 - 98.0 fL [facility] MCH 30.5 27.0 - 34.8 pg [facility] MCHC 32.6 31.5 - 36.0 g/dL [facility] RDW 13.2 10.8 - 14.6 % [facility] MPV 10.8 9.4 - 12.4 fl [facility] NRBC 0.00 /100 WBCs [facility] ABSOLUTE NRBC 0.00 K/uL [facility] Blood 08/02/2017 4:15 AM EST 08/02/2017 6:17 AM EST us Harris Obrien MD LAB BLOOD ORDERABLES Final Resul t [facility] 30 [place] [address] documented in this encounter Visit Diagnoses Diagnosis Hypothyroidism, unspecified type- Primary documented in this encounter Additional Health Concerns Infection Onset Date Last Indicated Resolved Time CoV-Risk 08/27/2021 09/01/2021 09/12/2021 1:21 AM EDT documented as of this encounter Care Teams Contract Administration Coordinator Relationship Specialty Start Date End Date Arturo Iverson MD 22 [facility] [place] [address] PCP - General 04/14/17 12/17/20 Arturo Iverson MD 22 [facility] [place] [address] PCP - General Internal Medicine 12/18/20 Arturo Iverson MD 22 [facility] [place] [address] Insurance Assigned Provider 09/23/23 documented as of this encounter Additional Source Comments The information contained in this document represents components of the legal health record. It is not the complete legal health record.[facility]
--- OUTSIDE RECORDS SUMMARY | 2025-03-18 13:53 | XMS_ITS | Encounter Summary ---
Author Organization [facility] Address [address] [place] [address] Phone Care Team Providers Care Recycling Crew Supervisor Name Role Phone Arturo Iverson MD Primary Care Provider [phone] Arturo Iverson MD Unavailable [phone] Arturo Iverson MD Primary Care Provider [phone] Encounter Details Date Type Department Care Team (Late st Contact Info) Description 08/06/2017 Transcribe Orders [facility] Specimen Processing 30 [place] [address] Harris Obrien MD 38 [facility] Michael 204, [address] [place] [address] [email or web address] Temperature elevation (Primary Dx); Flu-like symptoms Social History Tobacco Use Types Packs/Day Years [...] Description 06/02/2025 1:00 PM EST Office Visit [facility] [address] [place] [address] [place] [address] Arturo Iverson MD 22 [facility], [address] [place] [address] 07/04/2025 1:45 PM EST Office Visit [facility] 10 [place] [address] Unknown, Unknown, Nola Hughes, ADALI 10 [place] [address] 07/10/2025 2:15 PM EST Office Visit [facility] Orthopedics & Sports Medicine [address] [place] [address] Angela Salcedo MD [address] [place] [address] Orthopedics & Sports [place], [place] [address] 12/08/2025 1:00 PM EDT Office Visit [facility] [address] [place] [address] 3rd Floor, [address] [place] [address] Enrique Garcia DO [address] [place] [address] [place] [address] documented as of this encounter Results * Rapid influenza A and B (08/06/2017 9:56 AM EST) Influenza A Ag Negative Negative [facility] Influenza B Ag Negative Negative [facility] Other (Nasal) 08/06/2017 9:5 6 AM EST 08/06/2017 10:08 AM EST Harris Obrien MD MICROBIOLOGY - GENERAL ORDERABLE S Final Result [facility] 30 [place] [address] documented in this encounter Visit Diagnoses Diagnosis Temperature elevation- Primary Fever, unspecified Flu-like symptoms documented in this encounter Additional Health Concerns Infection Onset Date Last Indicated Resolved Time CoV-Risk 08/27/2021 09/01/2021 09/12/2021 1:21 AM EDT documented as of this encounter Care Teams Recycling Crew Supervisor Relationship Specialty Start Date End Date Arturo Iverson MD 22 [facility], [address] [place] [address] [email or web address] PCP - General 04/14/17 12/17/20 Arturo Iverson MD 22 [facility], [address] [place] [address] PCP - General Internal Medicine 12/18/20 Arturo Iverson MD 22 [facility], [address] [place] [address] Insurance Assigned Provider 09/23/23 documented as of this encounter Additional Source Comments The information contained in this document represents components of the legal health record. It is not the complete legal health record.[facility]
--- OUTSIDE RECORDS SUMMARY | 2025-03-18 13:53 | XMS_ITS | Encounter Summary ---
Author Organization [facility], Address [address] [place] [address] Phone Care Team Providers Care Professor Of French Name Role Phone Arturo Iverson MD Primary Care Provider [phone] Encounter Details Date Type Department Care Team (Late Contact Info) Description 06/05/2023 Documentation Only [facility] Mary [address] [place] [address] Ty Lyon MD [address] [place] [address] [place] [address] Social History Tobacco Use Types Packs/Day Years [...] Visit [facility] Mary [address] [place] [phone] Ty Lyon MD [address] [place] [address] [place] [address] documented as of this encounter Visit Diagnoses Not on filedocumented in this encounter Care Teams Professor Of French Relationship Specialty Start Date End Date Arturo Iverson MD 22 [facility], [address] [place] [address] PCP - General 04/23/19 documented as of this encounter
--- OUTSIDE RECORDS SUMMARY | 2025-03-18 13:53 | XMS_ITS | Encounter Summary ---
Author Organization [facility], Address [address] [place] [address] Phone Care Team Providers Care Government Affairs Director Name Role Phone Arturo Iverson MD Primary Care Provider [phone] Encounter Details Date Type Department Care Team (Late Contact Info) Description 11/25/2022 Documentation Only [facility] [address] Tyler [address] [place] [address] Darshan Tyson MD Social History [...] Visit [facility] [address] Tyler [address] [place] [address] Ty Lyon MD [address] [place] [address] [place] [phone] documented as of this encounter Visit Diagnoses Not on filedocumented in this encounter Care Teams Government Affairs Director Relationship Specialty Start Date End Date Arturo Iverson MD [address] [place] [address], [address] [place] [address] PCP - General 04/23/19 documented as of this encounter
--- OUTSIDE RECORDS SUMMARY | 2025-03-18 13:53 | XMS_ITS | Encounter Summary ---
Author Organization [facility] [place] [facility], Address [address] [place] [address] Phone Care Team Providers Care Fringe Knotter Name Role Phone Arturo Iverson MD Primary Care Provider [phone] Encounter Details Date Type Department Care Team (Late Contact Info) Description 12/09/2022 Documentation Only [facility] [address] [address] Tyler [address] [place] [address] Darshan Tyson MD Social History [...] Visit [facility] Mary [address] [place] [address] Ty Lyon MD [address] [place] [address] [place] [phone] documented as of this encounter Visit Diagnoses Not on filedocumented in this encounter Care Teams Fringe Knotter Relationship Specialty Start Date End Date Arturo Iverson MD 22 [facility], [address] [place] [address] PCP - General 04/23/19 documented as of this encounter
--- OUTSIDE RECORDS SUMMARY | 2025-03-18 13:53 | XMS_ITS | Encounter Summary ---
Author Organization [facility] [place], Address [address] [place] [address] Phone Care Team Providers Care Foreclosure Clerk Name Role Phone Arturo Iverson MD Primary Care Provider [phone] Encounter Details Date Type Department Care Team (Late Contact Info) Description 06/05/2023 Documentation Only [facility] Mary MALDONAD[address] [place] [address] Ty Lyon MD [address] [place] [address] [place] [address] Social History Tobacco Use Types [...] Visit [facility] Mary MALDONAD[address] [place] [phone] Ty Lyon MD [address] [place] [address] [place] [address] documented as of this encounter Visit Diagnoses Not on filedocumented in this encounter Care Teams Foreclosure Clerk Relationship Specialty Start Date End Date Arturo Iverson MD 22 [facility], [address] [place] [address] PCP - General 04/23/19 documented as of this encounter
--- OUTSIDE RECORDS SUMMARY | 2025-03-18 13:53 | XMS_ITS | Encounter Summary ---
Author Organization [facility] Address [address] [place] [address] Phone Care Team Providers Care Mortgage Loan Processor Name Role Phone Arturo Iverson MD Primary Care Provider [phone] Arturo Iverson MD Unavailable [phone] Arturo Iverson MD Primary Care Provider [phone] Encounter Details Date Type Department Care Team (Late st Contact Info) Description 08/06/2017 Transcribe Orders [facility] Specimen Processing 30 [place] [address] Harris Obrien MD 38 [facility] Michael 204, [address] [place] [address] [email or web address] Temperature elevation (Primary Dx) Social History Tobacco Use Types [...] Description 06/02/2025 1:00 PM EST Office Visit [address] [place] [address] Arturo Iverson MD 22 [facility], [address] [place] [address] 07/04/2025 1:45 PM EST Office Visit [facility] 10 [place] [address] Unknown, Unknown, Nola Hughes, ADALI 10 [place] [address] 07/10/2025 2:15 PM EST Office Visit [facility] Orthopedics & Sports Medicine [address] [place] [address] Angela Salcedo MD [address] [place] [address] Orthopedics & Sports Medicine, [facility] [place] [address] 12/08/2025 1:00 PM EDT Office Visit [facility] [address] [place] [address] 3rd Floor, [address] [place] [address] Enrique Garcia DO 22 [facility] [address] [place] [address] documented as of this encounter Results * Blood culture, routine (08/06/2017 8:30 AM EST) Specimen Source/ Description BLOOD BLOOD [facility] Special Requests None MARKETING SALES CONSULTANT [facility] Culture/Test NO GROWTH 5 DAYS [facility] Report Status 08/11/2017 FINAL [facility] Blood (Blood) 08/06/2017 8:3 0 AM EST 08/06/2017 10:08 AM EST us Harris Obrien MD MICROBIOLOGY - GENERAL ORDERABLE S Final Result Performing Organization Address City/[facility]/ZIP Co de Phone Number [address] [address] * Blood culture, routine (08/06/2017 8:20 AM EST) Specimen Source/ Description BLOOD BLOOD [facility] Special Requests None MARKETING SALES CONSULTANT [facility] Culture/Test NO GROWTH 5 DAYS [facility] Report Status 08/11/2017 FINAL [facility] Blood (Blood) 08/06/2017 8:2 0 AM EST 08/06/2017 10:06 AM EST us Harris bOrien MD MICROBIOLOGY - GENERAL ORDERABLE S Final Result Performing Organization Address [facility]/ZIP Co de Phone Number [address] [address] * (ABNORMAL) CBC and differential (08/06/2017 8:20 AM EST) WBC 11.79(H) 3.40 - 11.20 K/uL [facility] RBC 3.38(L) 3.80 - 4.80 M/uL [facility] HGB 10.6(L) 12.0 - 15.0 g/dL [facility] HCT 31.9(L) 36.0 - 46.0 % [facility] PLT 491(H) 130 - 400 K/uL [facility] MCV 94.4 79.0 - 98.0 [facility] MCH 31.4 27.0 - 34.8 pg [facility] MCHC 33.2 31.5 - 36.0 g/dL [facility] RDW 13.2 10.8 - 14.6 % [facility] MPV 10.1 9.4 - 12.4 [facility] NRBC 0.00 /100 WBCs [facility] ABSOLUTE NRBC 0.00 K/uL [facility] DIFF METHOD Auto [facility] NEUTS 74.4 45.30 - 77.70 % [facility] LYMPHS 14.8 12.30 - 39.70 % [facility] MONOS 7.8 4.10 - 12.80 % [facility] EOS 1.8 0 - 7.2 % [facility] BASOS 0.6 0 - 2.80 % [facility] Granulocytes, immature (%) 0.6 0.0 - 0.9 % [facility] ABSOLUTE NEUTS 8.77(H) 1.40 - 7.70 K/uL [facility] ABSOLUTE LYMPHS 1.75 0.60 - 3.20 K/uL [facility] ABSOLUTE MONOS 0.92(H) 0.11 - 0.59 K/uL [facility] ABSOLUTE EOS 0.21 0.01 - 0.50 K/uL [facility] ABSOLUTE BASOS 0.07 0.00 - 0.08 K/uL [facility] Granulocytes, immature 0.07(H) 0.00 - 0.05 K/uL [facility] Blood 08/06/2017 8:20 AM EST 08/06/2017 10:05 AM EST us Harris Obrien MD LAB BLOOD ORDERABLES Final Resul t [facility] 30 [place] [address] documented in this encounter Visit Diagnoses Diagnosis Temperature elevation- Primary Fever, unspecified documented in this encounter Additional Health Concerns Infection Onset Date Last Indicated Resolved Time CoV-Risk 08/27/2021 09/01/2021 09/12/2021 1:21 AM EDT documented as of this encounter Care Teams Mortgage Loan Processor Relationship Specialty Start Date End Date Arturo Iverson MD 22 [facility], [address] [place] [address] [email or web address] PCP - General 04/14/17 12/17/20 Arturo Iverson MD 22 [facility], [address] [place] [address] PCP - General Internal Medicine 12/18/20 Arturo Iverson MD [address] [place] [address], [address] [place] [address] [email or web address] Insurance Assigned Provider 09/23/23 documented as of this encounter Additional Source Comments The information contained in this document represents components of the legal health record. It is not the complete legal health record.[facility]
--- OUTSIDE RECORDS SUMMARY | 2025-03-18 13:53 | XMS_ITS | Encounter Summary ---
Author Organization [facility] [place] [facility], Address [address] [place] [address] Phone Care Team Providers Care Stamping Mill Tender Name Role Phone Arturo Iverson MD Primary Care Provider Encounter Details Date Type Department Care Team (Late Contact Info) Description 12/29/2022 Documentation Only [facility] Dr Tyler [address] [place] [address] Darshan Tyson MD Social History [...] Visit [facility] [address] [address] Tyler [address] [place] [address] Ty Lyon MD [address] [place] [address] [place] [phone] documented as of this encounter Visit Diagnoses Not on filedocumented in this encounter Care Teams Stamping Mill Tender Relationship Specialty Start Date End Date Arturo Iverson MD [address] [place] [address], [address] [place] [address] PCP - General 04/23/19 documented as of this encounter
--- OUTSIDE RECORDS SUMMARY | 2025-03-18 13:53 | XMS_ITS | Encounter Summary ---
Author Organization [facility] [place], Address [address] [place] [address] Phone Care Team Providers Care Culvert Installer Name Role Phone Arturo Iverson MD Primary Care Provider [phone] Encounter Details Date Type Department Care Team (Late Contact Info) Description 06/05/2023 Documentation Only [facility] Mary MALDONAD[address] [place] [address] Ty Lyon MD [address] [place] [address] [place] [address] Social History Tobacco Use Types [...] Visit [facility] Mary [address] [place] [phone] Ty Lyon MD [address] [place] [address] [place] [address] documented as of this encounter Visit Diagnoses Not on filedocumented in this encounter Care Teams Culvert Installer Relationship Specialty Start Date End Date Arturo Iverson MD 22 [facility], [address] [place] [address] PCP - General 04/23/19 documented as of this encounter
--- OUTSIDE RECORDS SUMMARY | 2025-03-18 13:53 | XMS_ITS | Encounter Summary ---
Author Organization [facility] [place], Address [address] [place] [address] Phone Care Team Providers Care Paint Laboratory Technician Name Role Phone Arturo Iverson MD Primary Care Provider [phone] Encounter Details Date Type Department Care Team (Late Contact Info) Description 06/05/2023 Documentation Only [facility] Mary [address] [place] [address] Ty Lyon MD [address] [place] [address] [place] [address] Social History Tobacco Use Types [...] Visit [facility] Mary [address] [place] [phone] Ty Lyon MD [address] [place] [address] [place] [address] documented as of this encounter Visit Diagnoses Not on filedocumented in this encounter Care Teams Paint Laboratory Technician Relationship Specialty Start Date End Date Arturo Iverson MD 22 [facility], [address] [place] [address] PCP - General 04/23/19 documented as of this encounter
--- OUTSIDE RECORDS SUMMARY | 2025-03-18 13:53 | XMS_ITS | Encounter Summary ---
Author Organization [facility] [place], Address [address] [place] [address] Phone Care Team Providers Care Reference Library Assistant Name Role Phone Arturo Iverson MD Primary Care Provider [phone] Encounter Details Date Type Department Care Team (Late Contact Info) Description 01/03/2024 Documentation Only [facility] Of [address] [place] [address] Lorna Josue [address] [place] [phone] Social History Tobacco Use Types Packs/Day Years [...] Visit [facility] Tyler MALDONADO [address] [place] [phone] Ty Lyon MD [address] [place] [address] [place] [phone] documented as of this encounter Visit Diagnoses Not on filedocumented in this encounter Care Teams Reference Library Assistant Relationship Specialty Start Date End Date Arturo Iverson MD [address] [place] [address], [address] [place] [address] PCP - General 04/23/19 documented as of this encounter
--- OUTSIDE RECORDS SUMMARY | 2025-03-18 13:53 | XMS_ITS | Encounter Summary ---
Author Organization [facility] [place], Address [address] [place] [address] Phone Care Team Providers Care Reporting Analyst Name Role Phone Arturo Iverson MD Primary Care Provider Encounter Details Date Type Department Care Team (Late Contact Info) Description 12/29/2022 Documentation Only [facility] Dr Tyler [address] [place] [address] Darshan Tyson MD Social History [...] Visit [facility] [address] Tyler [address] [place] [address] Ty Lyon MD [address] [place] [address] [place] [phone] documented as of this encounter Visit Diagnoses Not on filedocumented in this encounter Care Teams Reporting Analyst Relationship Specialty Start Date End Date Arturo Iverson MD [address] [place] [address], [address] [place] [address] PCP - General 04/23/19 documented as of this encounter
== END 2025-03-18 13:30 | disposition home or self-care (01) ==
LOC: HO.HSM 12:44
PROVIDERS: PCP Pediatrics; Visit Provider Nurse Practitioner
DX: G43.709 Chronic migraine without aura, not intractable, without status migrainosus (principal)
CPT/HCPCS: 99214

== ENCOUNTER → 2025-03-18 12:44 | Outpatient (BNVA) | payer MEDICARE, MEDICAID, SELFPAY | PROVIDERS: PCP Pediatrics; Visit Provider Nurse Practitioner | DX: G43.709 Chronic migraine without aura, not intractable, without status migrainosus (principal) | CPT/HCPCS: 99212 ==